=== PATIENT | female | born 1985 | race African-American/Black ===

== ENCOUNTER 2018-03-08 20:35 | Inpatient (IN) | payer MEDICARE, MEDICAID ==
[~2018-03-08] VITALS: Ht 167.6 cm; Wt 88.0 kg
[2018-03-08 20:35] VITALS: BP 63/30
[~2018-03-08 20:35] MED LIST: Calcium Gluconate 1gm/10ml vial IVP ONE; Glucagon 1mg Inj IV ONE; LAMICTAL100 MG ORAL; LATUDA20 MG PO
[2018-03-08] MEDS ORDERED: Calcium Gluconate 1gm/10ml vial ONE (20:40)
[2018-03-08] MEDS ORDERED: Glucagon 1mg Inj ONE ×3 (20:40→21:33)
[2018-03-08 20:51] LABS: HEMATOCRIT 38.9 % (37.0-47.0); HEMOGLOBIN 12.6 G/DL (12.0-16.0); MEAN CORPUSCULAR VOLUME 90 FL (80-99); PLATELET COUNT 427 K/UL (150-450); RED BLOOD COUNT 4.31 M/UL (4.20-5.40); RED CELL DISTRIBUTION WIDTH 14.7 % (11.6-14.8); WHITE BLOOD COUNT 19.2 K/UL (4.8-10.8)
--- NOTE | 2018-03-08 21:06 | Emergency Room Report ---
History of Present Illness General Chief Complaint: Overdose Source: Patient Present Illness HPI 32-year-old female presents ED for evaluation. Patient brought in by EMS for overdose. EMS states that patient overdosed on multiple pills of Tylenol, Benadryl, blood pressure medications last night. Patient was feeling dizzy and weak today. Family called 911. Patient states that she was feeling suicidal yesterday but not at this time. In triage patient is hypotensive. Denies chest pain or shortness of breath. Denies nausea or vomiting. Denies abdominal pain. There is a psychiatric history. Patient states she is compliant with her medications. Denies hearing voices. No other aggravating relieving factors. Denies any other associated symptoms Allergies: Coded Allergies: No Known Allergies (Unverified , 03/08/18) Patient History Past Medical History: none, asthma, psych hx Past Surgical History: none Pertinent Family History: none Social History: Denies: smoking, alcohol use, drug use Last Menstrual Period: 2 weeks ago Now: No Immunizations: UTD Reviewed Nursing Documentation: PMH: Agreed; PSxH: Agreed Nursing Documentation-PMH Hx Asthma: Yes History Of Psychiatric Problem: Yes - SCHIZO Review of Systems All Other Systems: negative except mentioned in HPI Physical Exam Vital Signs Date Time Temp Pulse Resp B/P (MAP) Pulse Ox O2 Delivery O2 Flow Rate FiO2 03/08/18 20:19 98.0 82 10 63/30 98 Room Air 98.1 Sp02 EP Interpretation: reviewed, normal General Appearance: alert, GCS 15, non-toxic, mild distress, lethargic Head: normocephalic, atraumatic Eyes: bilateral eye normal inspection, bilateral eye PERRL ENT: hearing grossly normal, normal pharynx, no angioedema, normal voice Neck: full range of motion, supple/symm/no masses Respiratory: chest non-tender, lungs clear, normal breath sounds, speaking full sentences Cardiovascular #1: regular rate, rhythm, no edema Cardiovascular #2: 2+ carotid (R), 2+ carotid (L), 2+ radial (R), 2+ radial (L) , 2+ dorsalis pedis (R), 2+ dorsalis pedis (L) Gastrointestinal: normal bowel sounds, non tender, soft, non-distended, no guarding, no rebound Rectal: deferred Genitourinary: normal inspection, no CVA tenderness Musculoskeletal: back normal, gait/station normal, normal range of motion, non- tender Neurologic: other - lethargic Psychiatric: depressed affect Reflexes: 3+ bicep (R), 3+ bicep (L), 3+ tricep (R), 3+ tricep (L), 3+ knee (R) , 3+ knee (L) Skin: normal color, no rash, warm/dry, well hydrated Lymphatic: no adenopathy Procedures Critical Care Time Critical Care Time i. I feel this is a highly complex case requiring extensive working including EKG/Rhythm strip, Xray/CT/US, Blood/urine lab work, repeat exams while in ED, and administration of strong opiates/narcotics for pain control, admission to hospital or close patient follow up. Total time: 30 min bedside evaluation and treatment excludes procedures (EKG). Reason for critical care: hypotensive overdose Possible complications: hypotension, hypertension, MA, shock, arrhythmias, metabolic acidosis, end organ damage, respiratory failure. Interventions: Labs, IV fluids, EKG, glucagon, calcium. Central line. Pressors Course: patient presenting s/p overdose on multiple medications. hypotensive. glucagon with temporizing improvement but despite multiple fluid boluses patient remains hypotensive. Central line placed. Pressors started Consultations: nursing staff, EMS, family Performed by: Dr Mcleod Tolerated well condition = critical j. because of unstable vital signs this patient had a condition that could potentially threaten life or limb. I feel this is a critical patient who required my full attention while patient was considered critical. Total Critical Care Time excluding procedures was greater than 35 minutes Central Line Central Line : Consent: Emergent Central Line Lumen: triple Maximal Sterile Barrier Tech: yes cap, yes mask, yes sterile gown, yes sterile gloves, yes large sterile sheet, yes hand hygiene, yes chlorhexidine prep Central Line Postion: femoral (R) Anesthesia: Lidocaine Complications: none Central Line Post Position: sutured, good blood return Attempts: One Patient Tolerated: Well Complications: None Medical Decision Making Diagnostic Impression: Primary Impression: Drug overdose Qualified Codes: T50.902A - Poisoning by unspecified drugs, medicaments and biological substances, intentional self-harm, initial encounter Additional Impression: Schizophrenia Qualified Codes: F20.9 - Schizophrenia, unspecified ER Course Hospital Course 33-year-old male presents to ED with altered mental status. Took severapills in suicide attempt Differential diagnoses include: Post ictal, Dilantin toxicity, alcohol toxicity , intracranial injury Clinical course She placed on stretcher. On court monitor. After initial history and physical ordered labs, IV fluids, EKG, glucagon, calcium Blood pressure temporarily improved with glucagon however blood pressure again drops despite aggressive IV hydration Labs reviewed- marked leukocytosis, LFTS elevated, Utox + multple substances, Tylneol level 38 Despite aggressive IV hydration patient remains hypotensive. Right femoral central line placed. Pressors started I discussed case with father. He is aware of the patient's significant psychiatric history. He is aware of patient's critical condition i. I feel this is a highly complex case requiring extensive working including EKG/Rhythm strip, Xray/CT/US, Blood/urine lab work, repeat exams while in ED, and administration of strong opiates/narcotics for pain control, admission to hospital or close patient follow up. Diagnosis - drug overdose, schizophrenia admitted to ICU in critical condition Labs Test 03/08/18 22:25 03/09/18 04:45 03/09/18 05:50 03/09/18 09:58 Urine HCG, Qualitative Negative (NEGATIVE) Sodium Level 139 MMOL/L (136-145) 136 MMOL/L (136-145) Potassium Level 3.8 MMOL/L (3.5-5.1) 4.8 MMOL/L (3.5-5.1) Chloride Level 103 MMOL/L (98-107) 102 MMOL/L (98-107) Carbon Dioxide Level 20 MMOL/L (21-32) 22 MMOL/L (21-32) Anion Gap 16 mmol/L (5-15) 12 mmol/L (5-15) Blood Urea Nitrogen 30 mg/dL (7-18) 30 mg/dL (7-18) Creatinine 4.3 MG/DL (0.55-1.30) 3.8 MG/DL (0.55-1.30) Estimat Glomerular Filtration Rate 14.7 mL/min (>60) 16.8 mL/min (>60) Glucose Level 163 MG/DL (74-106) 154 MG/DL (74-106) Calcium Level 7.2 MG/DL (8.5-10.1) 7.1 MG/DL (8.5-10.1) Total Bilirubin 0.5 MG/DL (0.2-1.0) Aspartate Amino Transf (AST/SGOT) 98 U/L (15-37) Alanine Aminotransferase (ALT/SGPT) 63 U/L (12-78) Alkaline Phosphatase 107 U/L (46-116) 123 U/L (46-116) Total Protein 6.6 G/DL (6.4-8.2) Albumin 2.8 G/DL (3.4-5.0) Globulin 3.8 g/dL Albumin/Globulin Ratio 0.7 (1.0-2.7) Salicylates Level 2.3 ug/mL (2.8-20) Urine Opiates Screen Positive (NEGATIVE) Acetaminophen Level 38 MCG/ML (10-30) 19 MCG/ML (10-30) Urine Barbiturates Screen Negative (NEGATIVE) Phencyclidine (PCP) Screen Positive (NEGATIVE) Urine Amphetamines Screen Negative (NEGATIVE) Urine Benzodiazepines Screen Negative (NEGATIVE) Urine Cocaine Screen Negative (NEGATIVE) Urine Marijuana (THC) Screen Negative (NEGATIVE) Serum Alcohol < 3 mg/dL White Blood Count 22.3 K/UL (4.8-10.8) Red Blood Count 4.61 M/UL (4.20-5.40) Hemoglobin 13.9 G/DL (12.0-16.0) Hematocrit 42.2 % (37.0-47.0) Mean Corpuscular Volume 91 FL (80-99) Mean Corpuscular Hemoglobin 30.1 PG (27.0-31.0) Mean Corpuscular Hemoglobin Concent 32.9 G/DL (32.0-36.0) Red Cell Distribution Width 14.4 % (11.6-14.8) Platelet Count 260 K/UL (150-450) Mean Platelet Volume 6.5 FL (6.5-10.1) Neutrophils (%) (Auto) % (45.0-75.0) Lymphocytes (%) (Auto) % (20.0-45.0) Monocytes (%) (Auto) % (1.0-10.0) Eosinophils (%) (Auto) % (0.0-3.0) Basophils (%) (Auto) % (0.0-2.0) Differential Total Cells Counted 100 Neutrophils % (Manual) 89 % (45-75) Lymphocytes % (Manual) 8 % (20-45) Monocytes % (Manual) 3 % (1-10) Eosinophils % (Manual) 0 % (0-3) Basophils % (Manual) 0 % (0-2) Band Neutrophils 0 % (0-8) Platelet Estimate Adequate Platelet Morphology Normal Red Blood Cell Morphology Normal Magnesium Level 1.9 MG/DL (1.8-2.4) Arterial Blood pH 7.161 (7.350-7.450) 7.089 (7.350-7.450) Arterial Blood Partial Pressure CO2 56.5 mmHg (35.0-45.0) 75.5 mmHg (35.0-45.0) Arterial Blood Partial Pressure O2 58.7 mmHg (75.0-100.0) 121.6 mmHg (75.0-100.0) Arterial Blood HCO3 19.7 mmol/L (22.0-26.0) 22.3 mmol/L (22.0-26.0) Arterial Blood Oxygen Saturation 89.9 % (92.0-98.0) 98.0 % (92.0-98.0) Arterial Blood Base Excess -9.3 -8.6 Theo Test Positive Positive Test 03/09/18 11:45 03/09/18 12:45 03/09/18 21:10 03/10/18 04:15 Urine Color Yellow Urine Appearance Clear Urine pH 5 (4.5-8.0) Urine Specific [place] 1.020 (1.005-1.035) Urine Protein 2+ (NEGATIVE) Urine Glucose (UA) Negative (NEGATIVE) Urine Ketones Negative (NEGATIVE) Urine Occult Blood 4+ (NEGATIVE) Urine Nitrite Negative (NEGATIVE) Urine Bilirubin Negative (NEGATIVE) Urine Urobilinogen Normal MG/DL (0.0-1.0) Urine Leukocyte Esterase 1+ (NEGATIVE) Urine RBC 2-4 /HPF (0 - 2) Urine WBC 2-4 /HPF (0 - 2) Urine Squamous Epithelial Cells Few /LPF (NONE/OCC) Urine Bacteria Occasional /HPF (NONE) Urine Mucus Few /LPF (NONE/OCC) Urine Yeast Occasional /HPF (NONE) Arterial Blood pH 7.150 (7.350-7.450) Arterial Blood Partial Pressure CO2 65.8 mmHg (35.0-45.0) Arterial Blood Partial Pressure O2 75.7 mmHg (75.0-100.0) Arterial Blood HCO3 22.4 mmol/L (22.0-26.0) Arterial Blood Oxygen Saturation 94.5 % (92.0-98.0) Arterial Blood Base Excess -7.3 Theo Test Positive White Blood Count 16.1 K/UL (4.8-10.8) 14.5 K/UL (4.8-10.8) Red Blood Count 3.96 M/UL (4.20-5.40) 3.91 M/UL (4.20-5.40) Hemoglobin 11.5 G/DL (12.0-16.0) 12.0 G/DL (12.0-16.0) Hematocrit 34.6 % (37.0-47.0) 34.3 % (37.0-47.0) Mean Corpuscular Volume 87 FL (80-99) 88 FL (80-99) Mean Corpuscular Hemoglobin 29.1 PG (27.0-31.0) 30.6 PG (27.0-31.0) Mean Corpuscular Hemoglobin Concent 33.3 G/DL (32.0-36.0) 34.9 G/DL (32.0-36.0) Red Cell Distribution Width 14.3 % (11.6-14.8) 14.2 % (11.6-14.8) Platelet Count 312 K/UL (150-450) 325 K/UL (150-450) Mean Platelet Volume 5.7 FL (6.5-10.1) 6.6 FL (6.5-10.1) Neutrophils (%) (Auto) % (45.0-75.0) % (45.0-75.0) Lymphocytes (%) (Auto) % (20.0-45.0) % (20.0-45.0) Monocytes (%) (Auto) % (1.0-10.0) % (1.0-10.0) Eosinophils (%) (Auto) % (0.0-3.0) % (0.0-3.0) Basophils (%) (Auto) % (0.0-2.0) % (0.0-2.0) Differential Total Cells Counted 100 100 Neutrophils % (Manual) 89 % (45-75) 86 % (45-75) Lymphocytes % (Manual) 8 % (20-45) 12 % (20-45) Monocytes % (Manual) 3 % (1-10) 2 % (1-10) Eosinophils % (Manual) 0 % (0-3) 0 % (0-3) Basophils % (Manual) 0 % (0-2) 0 % (0-2) Band Neutrophils 0 % (0-8) 0 % (0-8) Platelet Estimate Adequate Adequate Platelet Morphology Normal Normal Red Blood Cell Morphology Normal Prothrombin Time 16.4 SEC (9.30-11.50) Prothromb Time International Ratio 1.6 (0.9-1.1) Sodium Level 138 MMOL/L (136-145) 141 MMOL/L (136-145) Potassium Level 3.9 MMOL/L (3.5-5.1) 3.8 MMOL/L (3.5-5.1) Chloride Level 109 MMOL/L (98-107) 110 MMOL/L (98-107) Carbon Dioxide Level 21 MMOL/L (21-32) 23 MMOL/L (21-32) Anion Gap 8 mmol/L (5-15) 8 mmol/L (5-15) Blood Urea Nitrogen 25 mg/dL (7-18) 20 mg/dL (7-18) Creatinine 1.8 MG/DL (0.55-1.30) 1.3 MG/DL (0.55-1.30) Estimat Glomerular Filtration Rate 40.0 mL/min (>60) 58.3 mL/min (>60) Glucose Level 136 MG/DL (74-106) 134 MG/DL (74-106) Lactic Acid Level 1.50 mmol/L (0.66-2.22) Calcium Level 7.6 MG/DL (8.5-10.1) 7.9 MG/DL (8.5-10.1) Total Bilirubin 0.4 MG/DL (0.2-1.0) Aspartate Amino Transf (AST/SGOT) 1264 U/L (15-37) Alanine Aminotransferase (ALT/SGPT) 1141 U/L (12-78) Alkaline Phosphatase 97 U/L (46-116) Total Creatine Kinase 2558 U/L (26-308) Creatine Kinase MB 20.9 NG/ML (0.0-3.6) Creatine Kinase MB Relative Index 0.8 Troponin I 0.456 ng/mL (0.000-0.056) Total Protein 6.1 G/DL (6.4-8.2) Albumin 2.6 G/DL (3.4-5.0) Globulin 3.5 g/dL Albumin/Globulin Ratio 0.7 (1.0-2.7) Human Chorionic Gonadotropin, Quant < 1 mIU/mL (1-6) Anisocytosis 1+ Test 03/10/18 08:30 03/10/18 09:35 03/11/18 04:15 Arterial Blood pH 7.353 (7.350-7.450) Arterial Blood Partial Pressure CO2 41.2 mmHg (35.0-45.0) Arterial Blood Partial Pressure O2 97.4 mmHg (75.0-100.0) Arterial Blood HCO3 22.4 mmol/L (22.0-26.0) Arterial Blood Oxygen Saturation 96.9 % (92.0-98.0) Arterial Blood Base Excess -3.0 Theo Test Positive Troponin I 0.349 ng/mL (0.000-0.056) HIV (1&2) Antibody Rapid Negative (NEGATIVE) EKG Diagnostic Results Rate: normal Rhythm: NSR ST Segments: no acute changes ASA given to the pt in ED: No Rhythm Strip Diag. Results EP Interpretation: yes Rhythm: NSR, no PVC's, no ectopy Last Vital Signs Date Time Temp Pulse Resp B/P (MAP) Pulse Ox O2 Delivery O2 Flow Rate FiO2 03/08/18 20:19 98.0 82 10 63/30 98 Room Air 98.1 Status: improved Disposition: ADMITTED INPATIENT Condition: Critical Des Mcleod MD Mar 08, 2018 21:06
[2018-03-08] MEDS ORDERED: Glucagon 1mg Inj IV ONE (21:30)
[2018-03-08 21:35] VITALS: BP 91/47
[2018-03-08] MEDS ORDERED: PANTOPRAZOLE SO40 MG ORAL (22:18)
[2018-03-08] MEDS ORDERED: METFORMIN HCL500 M1 ORAL (22:19)
[2018-03-08] MEDS ORDERED: ACETAMINOPHEN-1 EAC1 ORAL (22:19)
[2018-03-08] MEDS ORDERED: BANOPHEN25 MG PO (22:20)
[2018-03-08] MEDS ORDERED: VENTOLIN HFA18 GM INH (22:20)
[2018-03-08] MEDS ORDERED: HAIR, SKIN & N1 EACH PO (22:21)
[2018-03-08] MEDS ORDERED: TURMERIC500 MG PO (22:22)
[2018-03-08 22:35] VITALS: BP 68/38
[2018-03-08 23:01] LABS: ANION GAP 16 mmol/L (5-15); BLOOD UREA NITROGEN 30 mg/dL (7-18); CALCIUM 7.2 MG/DL (8.5-10.1); CARBON DIOXIDE 20 MMOL/L (21-32); CHLORIDE 103 MMOL/L (98-107); CREATININE 4.3 MG/DL (0.55-1.30); POTASSIUM 3.8 MMOL/L (3.5-5.1); SODIUM 139 MMOL/L (136-145)
[2018-03-08 23:03] VITALS: BP 63/29
[2018-03-08] MEDS: DOPamine 400mg/250ml 250 ML IV SCH (23:03)
[2018-03-08 23:06] LABS: ALANINE AMINOTRANSFERASE 63 U/L (12-78); ALBUMIN 2.8 G/DL (3.4-5.0); ALBUMIN/GLOBULIN RATIO 0.7 (1.0-2.7); ALKALINE PHOSPHATASE 107 U/L (46-116); ASPARTATE AMINO TRANSFERASE 98 U/L (15-37); BILIRUBIN,TOTAL 0.5 MG/DL (0.2-1.0)
[2018-03-09] VITALS (22 sets, daily range): BP systolic 70–117; BP diastolic 30–65
[2018-03-09 05:15] LABS: HEMATOCRIT 42.2 % (37.0-47.0); HEMOGLOBIN 13.9 G/DL (12.0-16.0); MEAN CORPUSCULAR VOLUME 91 FL (80-99); PLATELET COUNT 260 K/UL (150-450); RED BLOOD COUNT 4.61 M/UL (4.20-5.40); RED CELL DISTRIBUTION WIDTH 14.4 % (11.6-14.8)
[2018-03-09 05:21] LABS: ALKALINE PHOSPHATASE 123 U/L (46-116); ANION GAP 12 mmol/L (5-15); BLOOD UREA NITROGEN 30 mg/dL (7-18); CALCIUM 7.1 MG/DL (8.5-10.1); CARBON DIOXIDE 22 MMOL/L (21-32); CHLORIDE 102 MMOL/L (98-107); CREATININE 3.8 MG/DL (0.55-1.30); POTASSIUM 4.8 MMOL/L (3.5-5.1); SODIUM 136 MMOL/L (136-145)
[2018-03-09 05:26] LABS: WHITE BLOOD COUNT 22.3 K/UL (4.8-10.8)
[2018-03-09] MEDS ORDERED: LORazepam 0.5mg tab ORAL PRN (08:45)
[2018-03-09] MEDS ORDERED: Heparin 2000 units/Ns 1000ml INJ PRN (08:45)
[2018-03-09] MEDS ORDERED: Lidocaine 1% Plain 30 ml INJ PRN (08:45)
[2018-03-09] MEDS ORDERED: LORazepam Inj 2mg/ml 1ml ONE (08:50)
--- NOTE | 2018-03-09 08:52 | Pulmonolgy Critical Care Note ---
Critical Care - Asmt/Plan Problems: (1) Altered mental state (2) Shock (3) LYNNE (acute kidney injury) (4) PCP intoxication (5) Opiate misuse (6) Tylenol overdose (7) Drug overdose, multiple drugs Respiratory: adjust FIO2, CXR, ABG Cardiac: continue pressors - Peripheral DA until PICC placed then NE via PICC to keep MAP > 60, continue to monitor HR/BP, other - IVF, F/U TTE Renal: F/U I&O, keep IV fluid, check electrolytes Infectious Disease: check cultures Gastrointestinal: other - aspiration precautions once less agitated and more alert. Trend LFT's, F/U INR, decision made by ERMD not to start NAC, tylenol level now 19 Endocrine: monitor blood sugar, check TSH Hematologic: monitor H/H Neurologic: PRN Ativan, keep patient comfortable, other - Monitor MS. Lopez christopherjennifer, sitter once leaves ICU Prophylaxis: Protonix, Heparin Disposition: keep in ICU Time Spent (Minutes): 70 Notes Reviewed: other - ERMD Discussed with: nurses Critical Care - Objective Last 24 Hour Vital Signs Date Time Temp Pulse Resp B/P (MAP) Pulse Ox O2 Delivery O2 Flow Rate FiO2 03/09/18 07:05 96 18 100/48 98 Room Air 03/09/18 06:03 97.8 75 18 88/50 99 Room Air 97.8 03/09/18 04:03 98.1 93 18 103/56 99 Room Air 98.1 03/09/18 02:03 98.1 69 18 93/50 100 Room Air 98.1 03/09/18 01:56 93/51 03/09/18 01:41 82/42 03/09/18 01:26 78/40 03/09/18 01:11 78/33 03/09/18 01:03 97.9 65 18 80/34 100 Room Air 97.9 03/09/18 00:56 73/35 03/09/18 00:41 67/38 03/09/18 00:26 69/32 03/09/18 00:18 69/32 03/09/18 00:11 69/32 03/09/18 00:03 98.1 69 20 70/30 100 Room Air 98.1 03/09/18 00:03 70/30 03/08/18 23:48 67/38 03/08/18 23:33 69/31 03/08/18 23:18 64/32 03/08/18 23:03 98.0 68 10 63/29 100 Room Air 98.0 03/08/18 23:03 63/29 03/08/18 22:45 95/61 03/08/18 22:35 97.8 71 13 68/38 100 Room Air 97.8 03/08/18 21:35 98.1 75 12 91/47 98 Room Air 98.1 03/08/18 20:35 82 10 Room Air 03/08/18 20:35 98.1 82 10 63/30 98 Room Air 98.1 03/08/18 20:19 98.0 82 10 63/30 98 Room Air 98.1 Status: awake, other - agitated Condition: critical HEENT: atraumatic, normocephalic Lungs: clear Heart: HR/BP unstable Abdomen: soft, non-tender, active bowel sounds Extremities: no C/C/E Accucheck: 134 Critical Care - Subjective ROS Limited/Unobtainable: Yes ICU Day: 1 Intubation Day: 0 Interval Events: 32 F unknown hx BIB EMS with AMS and OD with Tylenol, Benadryl, Atenolol, Losartan Hypotensive in ED, R fem CVC placed and patient started on NE, pt later pulled line out Initial acetominophen level was 38, F/U 19, decision made by ERMD not to start NAC BP better but pt altered, transferred to ICU UTOX + for PCP and opiate 7.16/56/58/19/89, + LYNNE somewhat improved with IVF She is extremely agitated and wants to leave AMA She denies any other complaints, no F/C/CP/SOB/N/V/D/C/abdominal pain or urinary complaints Condition: critical IV Access: peripheral EKG Rhythm: Sinus Rhythm Sputum Amount: None I&O: Intake and Output 03/08/18 03/09/18 19:00 07:00 Intake Total 3000 ml Output Total 350 ml Balance 2650 ml Intake IV Total 3000 ml Output Urine Total 350 ml # Voids 1 Labs: Laboratory Tests Test 03/08/18 20:20 03/08/18 22:25 03/09/18 04:45 03/09/18 05:50 White Blood Count 19.2 K/UL (4.8-10.8) H 22.3 K/UL (4.8-10.8) *H Red Blood Count 4.31 M/UL (4.20-5.40) 4.61 M/UL (4.20-5.40) Hemoglobin 12.6 G/DL (12.0-16.0) 13.9 G/DL (12.0-16.0) Hematocrit 38.9 % (37.0-47.0) 42.2 % (37.0-47.0) Mean Corpuscular Volume 90 FL (80-99) 91 FL (80-99) Mean Corpuscular Hemoglobin 29.2 PG (27.0-31.0) 30.1 PG (27.0-31.0) Mean Corpuscular Hemoglobin Concent 32.4 G/DL (32.0-36.0) 32.9 G/DL (32.0-36.0) Red Cell Distribution Width 14.7 % (11.6-14.8) 14.4 % (11.6-14.8) Platelet Count 427 K/UL (150-450) 260 K/UL (150-450) Mean Platelet Volume 5.7 FL (6.5-10.1) L 6.5 FL (6.5-10.1) Neutrophils (%) (Auto) % (45.0-75.0) % (45.0-75.0) Lymphocytes (%) (Auto) % (20.0-45.0) % (20.0-45.0) Monocytes (%) (Auto) % (1.0-10.0) % (1.0-10.0) Eosinophils (%) (Auto) % (0.0-3.0) % (0.0-3.0) Basophils (%) (Auto) % (0.0-2.0) % (0.0-2.0) Differential Total Cells Counted 100 Neutrophils % (Manual) 80 % (45-75) H Pending Lymphocytes % (Manual) 20 % (20-45) Pending Monocytes % (Manual) 0 % (1-10) L Eosinophils % (Manual) 0 % (0-3) Basophils % (Manual) 0 % (0-2) Band Neutrophils 0 % (0-8) Platelet Estimate Increased H Pending Platelet Morphology Normal Pending Anisocytosis 1+ Urine HCG, Qualitative Negative (NEGATIVE) Sodium Level 139 MMOL/L (136-145) 136 MMOL/L (136-145) Potassium Level 3.8 MMOL/L (3.5-5.1) 4.8 MMOL/L (3.5-5.1) Chloride Level 103 MMOL/L (98-107) 102 MMOL/L (98-107) Carbon Dioxide Level 20 MMOL/L (21-32) L 22 MMOL/L (21-32) Anion Gap 16 mmol/L (5-15) H 12 mmol/L (5-15) Blood Urea Nitrogen 30 mg/dL (7-18) H 30 mg/dL (7-18) H Creatinine 4.3 MG/DL (0.55-1.30) H 3.8 MG/DL (0.55-1.30) H Estimat Glomerular Filtration Rate 14.7 mL/min (>60) 16.8 mL/min (>60) Glucose Level 163 MG/DL (74-106) H 154 MG/DL (74-106) H Calcium Level 7.2 MG/DL (8.5-10.1) L 7.1 MG/DL (8.5-10.1) L Total Bilirubin 0.5 MG/DL (0.2-1.0) Aspartate Amino Transf (AST/SGOT) 98 U/L (15-37) H Alanine Aminotransferase (ALT/SGPT) 63 U/L (12-78) Alkaline Phosphatase 107 U/L (46-116) 123 U/L (46-116) H Total Protein 6.6 G/DL (6.4-8.2) Albumin 2.8 G/DL (3.4-5.0) L Globulin 3.8 g/dL Albumin/Globulin Ratio 0.7 (1.0-2.7) L Salicylates Level 2.3 ug/mL (2.8-20) L Urine Opiates Screen Positive (NEGATIVE) H Acetaminophen Level 38 MCG/ML (10-30) H 19 MCG/ML (10-30) Urine Barbiturates Screen Negative (NEGATIVE) Phencyclidine (PCP) Screen Positive (NEGATIVE) H Urine Amphetamines Screen Negative (NEGATIVE) Urine Benzodiazepines Screen Negative (NEGATIVE) Urine Cocaine Screen Negative (NEGATIVE) Urine Marijuana (THC) Screen Negative (NEGATIVE) Serum Alcohol < 3 mg/dL Magnesium Level 1.9 MG/DL (1.8-2.4) Arterial Blood pH 7.161 (7.350-7.450) Arterial Blood Partial Pressure CO2 56.5 mmHg (35.0-45.0) *H Arterial Blood Partial Pressure O2 58.7 mmHg (75.0-100.0) L Arterial Blood HCO3 19.7 mmol/L (22.0-26.0) L Arterial Blood Oxygen Saturation 89.9 % (92.0-98.0) L Arterial Blood Base Excess -9.3 Theo Test Positive NESSA LEVINE M.D. Mar 09, 2018 08:52
[2018-03-09] MEDS ORDERED: Pantoprazole Inj IV SCH (09:00)
--- NOTE | 2018-03-09 09:57 | History & Physical ---
History and Physical History & Physicial HP dictated # [id number] TERRI PEREZ Mar 09, 2018 09:57
[2018-03-09 11:57] LABS: APPEARANCE,URINE CLEAR; BILIRUBIN, URINE NEGATIVE (NEGATIVE); GLUCOSE, URINE (UA) NEGATIVE (NEGATIVE); KETONES,URINE NEGATIVE (NEGATIVE); LEUKOCYTE ESTERASE ,URINE 1+ (NEGATIVE); NITRITE,URINE NEGATIVE (NEGATIVE); PH,URINE 5 (4.5-8.0); PROTEIN,URINE 2+ (NEGATIVE); UROBILINOGEN,URINE NORMAL MG/DL (0.0-1.0)
[2018-03-09 12:08] LABS: COLOR,URINE YELLOW
[2018-03-09] MEDS: Heparin 5000 units/ml inj SUBQ SCH ×2 (12:33→21:06)
[2018-03-09] MEDS: Pantoprazole Inj IVP SCH (12:33)
--- NOTE | 2018-03-09 13:32 | Emergency Room Report ---
History of Present Illness General Chief Complaint: Overdose Source: Patient Present Illness Allergies: Coded Allergies: No Known Allergies (Unverified , 03/08/18) Patient History Last Menstrual Period: 2 weeks ago Now: No Nursing Documentation-[facility] Hx Asthma: Yes History Of Psychiatric Problem: Yes - SCHIZO Physical Exam Vital Signs Date Time Temp Pulse Resp B/P (MAP) Pulse Ox O2 Delivery O2 Flow Rate FiO2 03/08/18 20:19 98.0 82 10 63/30 98 Room Air 98.1 03/09/18 09:00 2.0 03/09/18 11:00 24 Procedures Intubation Intubation : Consent: Emergent Intubation Method: orotracheal Tube Size (cm): 7.5 Medications: Succinylcholine Breath Sounds after Intubation: equal Intubation Complications: no complications Attempts: One Patient Tolerated: Well Complications: None Progress Upon initial evaluation the vocal cords are visualized however, there is a anterior positioning and fairly distant from the oral airway to the vocal cords therefore initially, bougie tube is used and Seldinger maneuver with ET tube feeding over the top was utilized Medical Decision Making ER Course On initial arrival to the floor, patient's ABG remains acidotic I was requested by wheelchair rental clerk for airway intubation Patient's blood pressure is labile and therefore succinylcholine was used Referred to the note for the specifics care handed back to intensive care Chest X-Ray Diagnostic Results Chest X-Ray Diagnostic Results : Chest X-Ray Ordered: Yes # of Views/Limited/Complete: 1 View Indication: Other - Intubation EP Interpretation: Yes Interpretation: no consolidation, no effusion, no pneumothorax, other - ET tube appropriate Impression: Other - ET tube appropriate Electronically Signed by: Shahida Santana DO Last Vital Signs Date Time Temp Pulse Resp B/P (MAP) Pulse Ox O2 Delivery O2 Flow Rate FiO2 03/09/18 13:00 84 24 107/55 100 Bi-pap 24 03/09/18 10:00 2.0 03/09/18 09:00 97.8 97.8 Disposition: ADMITTED INPATIENT Condition: Serious Referrals: NOT CHOSEN IPA/,REFERRING (PCP) Shahida Santana DO Mar 09, 2018 13:32
[2018-03-09] MEDS: cefTRIAXone 1 GM in D5W 55 ML IVPB SCH (13:58)
[2018-03-09] MEDS: LORazepam Inj 2mg/ml 1ml IV PRN ×2 (14:01→19:59)
[2018-03-09] MEDS: D5NS 1,000 ML IV SCH ×2 (15:17→21:37)
[2018-03-09] MEDS ORDERED: Succinylcholine 20mg/ml 10ml vial ONE (16:04)
--- NOTE | 2018-03-09 19:15 | History and Physical Report ---
DATE OF ADMISSION: 03/08/2018 CHIEF COMPLAINT: The patient was brought in by paramedics for overdose. HISTORY OF PRESENT ILLNESS: This is a 32-year-old, female, who is unable to provide any history. The patient was seen in the ICU after she was brought in by paramedics apparently with overdose of Tylenol, Benadryl and blood pressure medications. The patient was feeling dizzy and weak and family called 911. The patient was found to be hypotensive in the emergency room with the blood pressure systolic in the 60s and she had a central line and was started on pressors and IV fluid was given and the patient was admitted to the intensive care unit. PAST MEDICAL HISTORY: Apparently, the patient has history of psychiatric disease and history of asthma. MEDICATIONS: Reviewed in the EMR. SOCIAL HISTORY: No history of smoking or alcohol abuse. ALLERGIES: No known drug allergies. REVIEW OF SYSTEMS: Unobtainable. PHYSICAL EXAMINATION: GENERAL: The patient is a 32-year-old female, in no acute distress. VITAL SIGNS: Blood pressure is 100/48, pulse 94, respiratory 18, and temperature 97.8 degrees. HEENT: [place] conjunctivae. Anicteric sclerae. NECK: Supple. LUNGS: Clear to auscultation. HEART: S1 and S2 without murmurs or rubs. ABDOMEN: Soft and nontender. EXTREMITIES: No cyanosis or edema. LABORATORY AND DIAGNOSTIC DATA: CBC shows a WBC of 22.3, hematocrit 42.2, hemoglobin 13.9, and platelet is 260,000. Chemistry panel shows serum sodium 136, potassium 4.8, chloride 102, CO2 of 22, BUN is 30, creatinine 3.8, and blood sugar is 154. Calcium 7.1. There is no UA. ASSESSMENT: This is a 32-year-old, female, who was admitted for an overdose of different medications. She was hypotensive in the emergency room likely as a result of taking the blood pressure medications. She has acute renal failure. Serum creatinine was 4.3, on admission and has improved to 3.8 today. There is a very likelihood that there is some acute tubular necrosis as a result of her low blood pressure. Other possibility such as prerenal azotemia exist. The patient had also an ABG as of this morning. She has some respiratory acidosis with some metabolic acidosis as well, pH was 7.16, pCO2 of 56.5, and pO2 of 59. So far, the patient has not required any intubation. PLAN: The patient will be on IV fluids and pressors as needed. She will need a PICC line since the central line does not work at this time. Her laboratories will be followed closely. A Rosenberg catheter will be inserted to make sure the patient has adequate urine. Hopefully, her kidney recovers without any dialysis. Psychiatry consultation will be obtained. The patient was already seen by Dr. Srivastava in Pulmonary consultation. Francis Asher M.D. DR: YOHANNES JOB#: [id number] CC:
[2018-03-09] MEDS: Dyna-Hex 2% Top Sol 2oz TOPIC SCH (19:58)
--- NOTE | 2018-03-09 20:45 | Consultation ---
DATE OF CONSULTATION: 03/09/2018 INFECTIOUS DISEASES CONSULTATION CONSULTING PHYSICIAN: Audie Asher M.D. PRIMARY ATTENDING PHYSICIAN: Francis Asher M.D. REASON FOR CONSULT: Leukocytosis. HISTORY OF PRESENT ILLNESS: The patient is a 32-year-old female admitted last night because of overdose with Tylenol, Benadryl, blood pressure medication, also found that she had PCP intoxication and opioid misuse, had altered mental status, hypotension. Currently, is in ICU, sedated, noncommunicative. PAST MEDICAL HISTORY: History of psychiatric problem, according to the ER doctor schizophrenia. ALLERGIES: No known drug allergies. MEDICATIONS: Getting chlorhexidine, sodium chloride, heparin, lorazepam, Protonix, and Tylenol. No other history obtainable. PHYSICAL EXAMINATION: VITAL SIGNS: Temperature 97.4 degrees, pulse 94, and blood pressure 100/48. GENERAL APPEARANCE: No acute distress, lethargic. HEAD AND NECK: [place] conjunctiva. HEART: Regular. LUNGS: Clear. ABDOMEN: Soft, flat, and nontender. EXTREMITY: She has no edema. LABORATORY AND DIAGNOSTIC DATA: WBC 22.3 going up from 19.2, hemoglobin 13.9, hematocrit 42.9 and platelets 260. Sodium 136, potassium 4.8, chloride 102, bicarbonate 22, BUN 30, creatinine 3.8, and glucose 154. Toxicology test showed high dose of acetaminophen, opiates and phencyclidine. UA test was negative. IMPRESSION: 1. Systemic inflammatory response /sepsis and drug intoxication. 2. The patient has hypotension. 3. Acute renal failure. 4. Altered mental status. 5. Leukocytosis. RECOMMENDATION: We will follow up the cultures that was ordered by primary doctor. We will follow up the chest x-ray. We will start empirically on Rocephin because of concern of aspiration pneumonia. At the end of my exam, I thank Dr. Asher, for involving me in the care of this patient. Audie Asher M.D. DR: TAMIKO JOB#: [id number] CC: FILOMENA
[2018-03-09 21:38] LABS: HEMATOCRIT 34.6 % (37.0-47.0); HEMOGLOBIN 11.5 G/DL (12.0-16.0); MEAN CORPUSCULAR VOLUME 87 FL (80-99); PLATELET COUNT 312 K/UL (150-450); RED BLOOD COUNT 3.96 M/UL (4.20-5.40); RED CELL DISTRIBUTION WIDTH 14.3 % (11.6-14.8); WHITE BLOOD COUNT 16.1 K/UL (4.8-10.8)
[2018-03-09 21:44] LABS: INR 1.6 (0.9-1.1)
[2018-03-09 21:54] LABS: ANION GAP 8 mmol/L (5-15); BLOOD UREA NITROGEN 25 mg/dL (7-18); CALCIUM 7.6 MG/DL (8.5-10.1); CARBON DIOXIDE 21 MMOL/L (21-32); CHLORIDE 109 MMOL/L (98-107); CREATININE 1.8 MG/DL (0.55-1.30); POTASSIUM 3.9 MMOL/L (3.5-5.1); SODIUM 138 MMOL/L (136-145)
[2018-03-09 22:03] LABS: ALANINE AMINOTRANSFERASE 1141 U/L (12-78); ALBUMIN 2.6 G/DL (3.4-5.0); ALBUMIN/GLOBULIN RATIO 0.7 (1.0-2.7); ALKALINE PHOSPHATASE 97 U/L (46-116); ASPARTATE AMINO TRANSFERASE 1264 U/L (15-37); BILIRUBIN,TOTAL 0.4 MG/DL (0.2-1.0)
[2018-03-09 22:10] LABS: CKMB 20.9 NG/ML (0.0-3.6); CREATINE KINASE 2558 U/L (26-308)
[2018-03-09] MEDS: DOPamine 400mg/250ml 250 ML IV SCH (22:30)
[2018-03-10] VITALS (24 sets, daily range): BP systolic 114–167; BP diastolic 55–89
[2018-03-10] MEDS: LORazepam Inj 2mg/ml 1ml IV PRN (02:33)
[2018-03-10] MEDS: D5NS 1,000 ML IV SCH ×3 (04:34→18:30)
[2018-03-10 04:37] LABS: HEMATOCRIT 34.3 % (37.0-47.0); MEAN CORPUSCULAR VOLUME 88 FL (80-99); PLATELET COUNT 325 K/UL (150-450); RED BLOOD COUNT 3.91 M/UL (4.20-5.40); RED CELL DISTRIBUTION WIDTH 14.2 % (11.6-14.8); WHITE BLOOD COUNT 14.5 K/UL (4.8-10.8)
[2018-03-10 05:04] LABS: ANION GAP 8 mmol/L (5-15); BLOOD UREA NITROGEN 20 mg/dL (7-18); CALCIUM 7.9 MG/DL (8.5-10.1); CARBON DIOXIDE 23 MMOL/L (21-32); CHLORIDE 110 MMOL/L (98-107); CREATININE 1.3 MG/DL (0.55-1.30); POTASSIUM 3.8 MMOL/L (3.5-5.1); SODIUM 141 MMOL/L (136-145)
--- NOTE | 2018-03-10 08:17 | Pulmonolgy Critical Care Note ---
Critical Care - Asmt/Plan Problems: (1) Altered mental state (2) Shock (3) LYNNE (acute kidney injury) (4) PCP intoxication (5) Opiate misuse (6) Tylenol overdose (7) Drug overdose, multiple drugs Respiratory: ABG, other - Possible extubation later today Cardiac: continue to monitor HR/BP Renal: F/U I&O, keep IV fluid, check electrolytes Infectious Disease: continue antibiotics - per ID, likely can de-escalate soon Gastrointestinal: other - If not extubated later will D/C Abx later Endocrine: monitor blood sugar Hematologic: monitor H/H Neurologic: PRN Ativan, keep patient comfortable Prophylaxis: Protonix, Heparin - SQ Disposition: keep in ICU Notes Reviewed: [place]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, 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, ID Discussed with: nurses, consultants Critical Care - Objective Last 24 Hour Vital Signs Date Time Temp Pulse Resp B/P (MAP) Pulse Ox O2 Delivery O2 Flow Rate FiO2 03/10/18 07:29 91 16 30 03/10/18 07:00 99.7 91 16 147/76 97 Mechanical Ventilator 30 99.7 03/10/18 06:00 84 16 130/72 97 Mechanical Ventilator 30 03/10/18 05:00 88 16 135/72 97 Mechanical Ventilator 30 03/10/18 04:58 94 16 30 03/10/18 04:00 99.0 91 17 150/78 97 Mechanical Ventilator 30 99.0 03/10/18 04:00 30 03/10/18 03:32 84 16 30 03/10/18 03:00 91 17 146/74 98 Mechanical Ventilator 30 03/10/18 02:00 90 16 114/55 98 Mechanical Ventilator 30 03/10/18 01:26 86 16 30 03/10/18 01:15 92 03/10/18 01:00 89 16 115/59 98 Mechanical Ventilator 30 03/10/18 00:00 30 03/10/18 00:00 90 03/10/18 00:00 98.8 94 16 133/63 97 Mechanical Ventilator 30 98.8 03/09/18 23:21 93 16 30 03/09/18 23:00 93 16 107/55 99 Mechanical Ventilator 30 03/09/18 22:45 107/55 03/09/18 22:30 107/55 03/09/18 22:00 89 16 107/55 99 Mechanical Ventilator 30 03/09/18 21:25 90 18 30 4/29/18 21:00 89 16 112/65 99 Mechanical Ventilator 30 03/09/18 20:00 99.0 89 16 112/65 99 Mechanical Ventilator 30 99.0 03/09/18 20:00 90 03/09/18 20:00 30 03/09/18 19:24 86 16 30 03/09/18 19:00 89 16 103/53 99 Mechanical Ventilator 30 03/09/18 18:00 88 16 102/56 99 Mechanical Ventilator 30 03/09/18 17:00 91 18 93/49 100 Mechanical Ventilator 30 03/09/18 16:55 89 19 30 03/09/18 16:00 30 03/09/18 16:00 97.8 91 17 90/45 100 Mechanical Ventilator 30 97.8 03/09/18 16:00 90 03/09/18 15:00 87 33 101/49 100 Mechanical Ventilator 30 03/09/18 14:31 91 18 30 03/09/18 14:00 85 24 117/52 100 Mechanical Ventilator 30 03/09/18 13:15 84 18 30 03/09/18 13:15 30 03/09/18 13:00 84 24 107/55 100 Bi-pap 24 03/09/18 12:00 24 03/09/18 12:00 74 24 99/48 100 Bi-pap 24 03/09/18 12:00 76 03/09/18 11:32 100 Bi-pap 24 03/09/18 11:31 76 24 Bi-pap 24 03/09/18 11:30 24 03/09/18 11:27 76 24 100 Facial 24 03/09/18 11:00 83 31 92/44 100 Bi-pap 24 03/09/18 10:00 86 24 102/44 100 Nasal Cannula 2.0 03/09/18 09:00 97.8 85 26 70/36 100 Nasal Cannula 2.0 97.8 03/09/18 08:20 97.8 94 18 100/48 98 Room Air 03/09/18 08:15 94 18 94/50 98 Room Air Status: awake Condition: improving HEENT: atraumatic, normocephalic, other - ETT Lungs: clear Heart: HR/BP stable Abdomen: soft, non-tender, active bowel sounds Extremities: no C/C/E Micro: Microbiology Date/Time Source Procedure Growth Status 03/09/18 11:45 Urine,Clean Catch Urine Culture - Preliminary Resulted Accucheck: 100 Critical Care - Subjective ROS Limited/Unobtainable: Yes ICU Day: 2 Intubation Day: 2 Interval Events: AFVSS, stable on vent FiO2 30% Awake and alert off sedation No secretions Condition: improving IV Access: peripheral EKG Rhythm: Sinus Rhythm FI02: 30 Vent Support Breath Rate: 16 Vent Support Mode: AC Vent Tidal Volume: 600 Sputum Amount: Moderate PEEP: 5.0 PIP: 30 I&O: Intake and Output 03/09/18 03/10/18 19:00 07:00 Intake Total 2569 ml 1800 ml Output Total 1590 ml 490 ml Balance 979 ml 1310 ml Intake IV Total 2569 ml 1800 ml Output Urine Total 1590 ml 490 ml ET-Tube: 7.5 ET Position: 25 Labs: Laboratory Tests Test 03/09/18 09:58 03/09/18 11:45 03/09/18 12:45 03/09/18 21:10 Arterial Blood pH 7.089 (7.350-7.450) 7.150 (7.350-7.450) Arterial Blood Partial Pressure CO2 75.5 mmHg (35.0-45.0) *H 65.8 mmHg (35.0-45.0) *H Arterial Blood Partial Pressure O2 121.6 mmHg (75.0-100.0) H 75.7 mmHg (75.0-100.0) Arterial Blood HCO3 22.3 mmol/L (22.0-26.0) 22.4 mmol/L (22.0-26.0) Arterial Blood Oxygen Saturation 98.0 % (92.0-98.0) 94.5 % (92.0-98.0) Arterial Blood Base Excess -8.6 -7.3 Theo Test Positive Positive Urine Color Yellow Urine Appearance Clear Urine pH 5 (4.5-8.0) Urine Specific [place] 1.020 (1.005-1.035) Urine Protein 2+ (NEGATIVE) H Urine Glucose (UA) Negative (NEGATIVE) Urine Ketones Negative (NEGATIVE) Urine Occult Blood 4+ (NEGATIVE) H Urine Nitrite Negative (NEGATIVE) Urine Bilirubin Negative (NEGATIVE) Urine Urobilinogen Normal MG/DL (0.0-1.0) Urine Leukocyte Esterase 1+ (NEGATIVE) H Urine RBC 2-4 /HPF (0 - 2) H Urine WBC 2-4 /HPF (0 - 2) Urine Squamous Epithelial Cells Few /LPF (NONE/OCC) Urine Bacteria Occasional /HPF (NONE) Urine Mucus Few /LPF (NONE/OCC) H Urine Yeast Occasional /HPF (NONE) H White Blood Count 16.1 K/UL (4.8-10.8) H Red Blood Count 3.96 M/UL (4.20-5.40) L Hemoglobin 11.5 G/DL (12.0-16.0) L Hematocrit 34.6 % (37.0-47.0) L Mean Corpuscular Volume 87 FL (80-99) Mean Corpuscular Hemoglobin 29.1 PG (27.0-31.0) Mean Corpuscular Hemoglobin Concent 33.3 G/DL (32.0-36.0) Red Cell Distribution Width 14.3 % (11.6-14.8) Platelet Count 312 K/UL (150-450) Mean Platelet Volume 5.7 FL (6.5-10.1) L Neutrophils (%) (Auto) % (45.0-75.0) Lymphocytes (%) (Auto) % (20.0-45.0) Monocytes (%) (Auto) % (1.0-10.0) Eosinophils (%) (Auto) % (0.0-3.0) Basophils (%) (Auto) % (0.0-2.0) Differential Total Cells Counted 100 Neutrophils % (Manual) 89 % (45-75) H Lymphocytes % (Manual) 8 % (20-45) L Monocytes % (Manual) 3 % (1-10) Eosinophils % (Manual) 0 % (0-3) Basophils % (Manual) 0 % (0-2) Band Neutrophils 0 % (0-8) Platelet Estimate Adequate Platelet Morphology Normal Red Blood Cell Morphology Normal Prothrombin Time 16.4 SEC (9.30-11.50) H Prothromb Time International Ratio 1.6 (0.9-1.1) H Sodium Level 138 MMOL/L (136-145) Potassium Level 3.9 MMOL/L (3.5-5.1) Chloride Level 109 MMOL/L (98-107) H Carbon Dioxide Level 21 MMOL/L (21-32) Anion Gap 8 mmol/L (5-15) Blood Urea Nitrogen 25 mg/dL (7-18) H Creatinine 1.8 MG/DL (0.55-1.30) #H Estimat Glomerular Filtration Rate 40.0 mL/min (>60) Glucose Level 136 MG/DL (74-106) H Lactic Acid Level 1.50 mmol/L (0.66-2.22) Calcium Level 7.6 MG/DL (8.5-10.1) L Total Bilirubin 0.4 MG/DL (0.2-1.0) Aspartate Amino Transf (AST/SGOT) 1264 U/L (15-37) H Alanine Aminotransferase (ALT/SGPT) 1141 U/L (12-78) H Alkaline Phosphatase 97 U/L (46-116) Total Creatine Kinase 2558 U/L (26-308) H Creatine Kinase MB 20.9 NG/ML (0.0-3.6) H Creatine Kinase MB Relative Index 0.8 Troponin I 0.456 ng/mL (0.000-0.056) Total Protein 6.1 G/DL (6.4-8.2) L Albumin 2.6 G/DL (3.4-5.0) L Globulin 3.5 g/dL Albumin/Globulin Ratio 0.7 (1.0-2.7) L Human Chorionic Gonadotropin, Quant < 1 mIU/mL (1-6) L Test 03/10/18 04:15 White Blood Count 14.5 K/UL (4.8-10.8) H Red Blood Count 3.91 M/UL (4.20-5.40) L Hemoglobin 12.0 G/DL (12.0-16.0) Hematocrit 34.3 % (37.0-47.0) L Mean Corpuscular Volume 88 FL (80-99) Mean Corpuscular Hemoglobin 30.6 PG (27.0-31.0) Mean Corpuscular Hemoglobin Concent 34.9 G/DL (32.0-36.0) Red Cell Distribution Width 14.2 % (11.6-14.8) Platelet Count 325 K/UL (150-450) Mean Platelet Volume 6.6 FL (6.5-10.1) Neutrophils (%) (Auto) % (45.0-75.0) Lymphocytes (%) (Auto) % (20.0-45.0) Monocytes (%) (Auto) % (1.0-10.0) Eosinophils (%) (Auto) % (0.0-3.0) Basophils (%) (Auto) % (0.0-2.0) Neutrophils % (Manual) Pending Lymphocytes % (Manual) Pending Platelet Estimate Pending Platelet Morphology Pending Sodium Level 141 MMOL/L (136-145) Potassium Level 3.8 MMOL/L (3.5-5.1) Chloride Level 110 MMOL/L (98-107) H Carbon Dioxide Level 23 MMOL/L (21-32) Anion Gap 8 mmol/L (5-15) Blood Urea Nitrogen 20 mg/dL (7-18) H Creatinine 1.3 MG/DL (0.55-1.30) Estimat Glomerular Filtration Rate 58.3 mL/min (>60) Glucose Level 134 MG/DL (74-106) H Calcium Level 7.9 MG/DL (8.5-10.1) NESSA PATTERSON M.D. Mar 10, 2018 08:17
[2018-03-10] MEDS: Pantoprazole Inj IVP SCH (08:33)
[2018-03-10] MEDS: Heparin 5000 units/ml inj SUBQ SCH ×2 (08:42→20:48)
--- NOTE | 2018-03-10 10:36 | General Progress Note ---
Assessment/Plan Problem List: (1) Altered mental state ICD Codes: R41.82 - Altered mental status, unspecified SNOMED: 697200008 (2) LYNNE (acute kidney injury) Assessment & Plan: better ICD Codes: N17.9 - Acute kidney failure, unspecified SNOMED: 74888677 (3) Drug overdose ICD Codes: T50.901A - Poisoning by unspecified drugs, medicaments and biological substances, accidental (unintentional), initial encounter SNOMED: 53274684 (4) Schizophrenia ICD Codes: F20.9 - Schizophrenia, unspecified SNOMED: 52104905 (5) Acute respiratory failure with hypercapnia ICD Codes: J96.02 - Acute respiratory failure with hypercapnia SNOMED: 396813959 (6) Shock liver ICD Codes: K72.00 - Acute and subacute hepatic failure without coma SNOMED: 458070421 Assessment/Plan Try to extubate today abxs follow labs Discussed with RN Subjective Allergies: Coded Allergies: No Known Allergies (Unverified , 03/08/18) Subjective still intubated Objective Last 24 Hour Vital Signs Date Time Temp Pulse Resp B/P (MAP) Pulse Ox O2 Delivery O2 Flow Rate FiO2 03/10/18 09:00 91 16 132/61 97 Mechanical Ventilator 30 03/10/18 08:30 30 03/10/18 08:00 83 16 142/76 97 Mechanical Ventilator 30 03/10/18 07:29 91 16 30 03/10/18 07:00 99.7 91 16 147/76 97 Mechanical Ventilator 30 99.7 03/10/18 06:00 84 16 130/72 97 Mechanical Ventilator 30 03/10/18 05:00 88 16 135/72 97 Mechanical Ventilator 30 03/10/18 04:58 94 16 30 03/10/18 04:00 99.0 91 17 150/78 97 Mechanical Ventilator 30 99.0 03/10/18 04:00 30 03/10/18 03:32 84 16 30 03/10/18 03:00 91 17 146/74 98 Mechanical Ventilator 30 03/10/18 02:00 90 16 114/55 98 Mechanical Ventilator 30 03/10/18 01:26 86 16 30 03/10/18 01:15 92 03/10/18 01:00 89 16 115/59 98 Mechanical Ventilator 30 03/10/18 00:00 30 03/10/18 00:00 90 4/30/18 00:00 98.8 94 16 133/63 97 Mechanical Ventilator 30 98.8 03/09/18 23:21 93 16 30 03/09/18 23:00 93 16 107/55 99 Mechanical Ventilator 30 03/09/18 22:45 107/55 03/09/18 22:30 107/55 03/09/18 22:00 89 16 107/55 99 Mechanical Ventilator 30 03/09/18 21:25 90 18 30 03/09/18 21:00 89 16 112/65 99 Mechanical Ventilator 30 03/09/18 20:00 99.0 89 16 112/65 99 Mechanical Ventilator 30 99.0 03/09/18 20:00 90 03/09/18 20:00 30 03/09/18 19:24 86 16 30 03/09/18 19:00 89 16 103/53 99 Mechanical Ventilator 30 03/09/18 18:00 88 16 102/56 99 Mechanical Ventilator 30 03/09/18 17:00 91 18 93/49 100 Mechanical Ventilator 30 03/09/18 16:55 89 19 30 03/09/18 16:00 30 03/09/18 16:00 97.8 91 17 90/45 100 Mechanical Ventilator 30 97.8 03/09/18 16:00 90 03/09/18 15:00 87 33 101/49 100 Mechanical Ventilator 30 03/09/18 14:31 91 18 30 03/09/18 14:00 85 24 117/52 100 Mechanical Ventilator 30 03/09/18 13:15 84 18 30 03/09/18 13:15 30 03/09/18 13:00 84 24 107/55 100 Bi-pap 24 03/09/18 12:00 24 03/09/18 12:00 74 24 99/48 100 Bi-pap 24 03/09/18 12:00 76 03/09/18 11:32 100 Bi-pap 24 03/09/18 11:31 76 24 Bi-pap 24 03/09/18 11:30 24 03/09/18 11:27 76 24 100 Facial 24 03/09/18 11:00 83 31 92/44 100 Bi-pap 24 Intake and Output 03/09/18 03/10/18 19:00 07:00 Intake Total 2569 ml 1800 ml Output Total 1590 ml 490 ml Balance 979 ml 1310 ml Intake IV Total 2569 ml 1800 ml Output Urine Total 1590 ml 490 ml Laboratory Tests 03/09/18 11:45: Urine Color Yellow, Urine Appearance Clear, Urine pH 5, Urine Specific [place] 1.020, Urine Protein 2+H, Urine Glucose (UA) Negative, Urine Ketones Negative, Urine Occult Blood 4+H, Urine Nitrite Negative, Urine Bilirubin Negative, Urine Urobilinogen Normal, Urine Leukocyte Esterase 1+H, Urine RBC 2-4H, Urine WBC 2-4 , Urine Squamous Epithelial Cells Few, Urine Bacteria Occasional, Urine Mucus FewH, Urine Yeast OccasionalH 03/09/18 12:45: Arterial Blood pH 7.150*L, Arterial Blood Partial Pressure CO2 65.8*H, Arterial Blood Partial Pressure O2 75.7, Arterial Blood HCO3 22.4, Arterial Blood Oxygen Saturation 94.5, Arterial Blood Base Excess -7.3, Theo Test Positive 03/09/18 21:10: White Blood Count 16.1H, Red Blood Count 3.96L, Hemoglobin 11.5L, Hematocrit 34.6L, Mean Corpuscular Volume 87, Mean Corpuscular Hemoglobin 29.1, Mean Corpuscular Hemoglobin Concent 33.3, Red Cell Distribution Width 14.3, Platelet Count 312, Mean Platelet Volume 5.7L, Neutrophils (%) (Auto) , Lymphocytes (%) ( Auto) , Monocytes (%) (Auto) , Eosinophils (%) (Auto) , Basophils (%) (Auto) , Differential Total Cells Counted 100, Neutrophils % (Manual) 89H, Lymphocytes % (Manual) 8L, Monocytes % (Manual) 3, Eosinophils % (Manual) 0, Basophils % ( Manual) 0, Band Neutrophils 0, Platelet Estimate Adequate, Platelet Morphology Normal, Red Blood Cell Morphology Normal, Prothrombin Time 16.4H, Prothromb Time International Ratio 1.6H, Sodium Level 138, Potassium Level 3.9, Chloride Level 109H, Carbon Dioxide Level 21, Anion Gap 8, Blood Urea Nitrogen 25H, Creatinine 1.8#H, Estimat Glomerular Filtration Rate 40.0, Glucose Level 136H, Lactic Acid Level 1.50, Calcium Level 7.6L, Total Bilirubin 0.4, Aspartate Amino Transf (AST/SGOT) 1264H, Alanine Aminotransferase (ALT/SGPT) 1141H, Alkaline Phosphatase 97, Total Creatine Kinase 2558H, Creatine Kinase MB 20.9H, Creatine Kinase MB Relative Index 0.8, Troponin I 0.456H, Total Protein 6.1L, Albumin 2.6L, Globulin 3.5, Albumin/Globulin Ratio 0.7L, Human Chorionic Gonadotropin, Quant < 1L 03/10/18 04:15: White Blood Count 14.5H, Red Blood Count 3.91L, Hemoglobin 12.0, Hematocrit 34.3L, Mean Corpuscular Volume 88, Mean Corpuscular Hemoglobin 30.6, Mean Corpuscular Hemoglobin Concent 34.9, Red Cell Distribution Width 14.2, Platelet Count 325, Mean Platelet Volume 6.6, Neutrophils (%) (Auto) , Lymphocytes (%) ( Auto) , Monocytes (%) (Auto) , Eosinophils (%) (Auto) , Basophils (%) (Auto) , Differential Total Cells Counted 100, Neutrophils % (Manual) 86H, Lymphocytes % (Manual) 12L, Monocytes % (Manual) 2, Eosinophils % (Manual) 0, Basophils % ( Manual) 0, Band Neutrophils 0, Platelet Estimate Adequate, Platelet Morphology Normal, Sodium Level 141, Potassium Level 3.8, Chloride Level 110H, Carbon Dioxide Level 23, Anion Gap 8, Blood Urea Nitrogen 20H, Creatinine 1.3, Estimat Glomerular Filtration Rate 58.3, Glucose Level 134H, Calcium Level 7.9L, Anisocytosis 1+ 03/10/18 08:30: Arterial Blood pH 7.353, Arterial Blood Partial Pressure CO2 41.2, Arterial Blood Partial Pressure O2 97.4, Arterial Blood HCO3 22.4, Arterial Blood Oxygen Saturation 96.9, Arterial Blood Base Excess -3.0, Theo Test Positive 03/10/18 09:35: Troponin I [Pending] Height (Feet): 5 Height (Inches): 6.00 Weight (Pounds): 194 Cardiovascular: normal rate Respiratory/Chest: lungs clear Abdomen: soft TERRI PEREZ Mar 10, 2018 10:36
--- NOTE | 2018-03-10 11:01 | Cardiology Report ---
APPROVED REPORT EXAM: Two-dimensional and M-mode echocardiogram with Doppler and color Doppler. INDICATION Atrial Flutter M-Mode DIMENSIONS IVSd0.9 (0.7-1.1cm)Left Atrium (MM)3.2 (1.6-4.0cm) LVDd3.6 (3.5-5.6cm)Aortic Root2.8 (2.0-3.7cm) PWd0.9 (0.7-1.1cm)Aortic Cusp Exc.2.0 (1.5-2.0cm) LVDs1.6 (2.5-4.0cm) PWs1.6 cm Technically difficult study due to poor apical windows. Study quality precludes accurate assessment of regional wall motion. Normal left ventricular chamber size, systolic function and wall motion. Left ventricular ejection fraction estimated to be 65 %. No evidence of left ventricular hypertrophy. No evidence of pericardial effusion. Normal appearing aortic, mitral, pulmonic and tricuspid valves. IVC is normal in size with physiological collapse. A color flow and spectral Doppler study was performed and revealed: No aortic insufficiency. No mitral regurgitation. Mitral inflow indicate normal left ventricular diastolic function. Mild tricuspid regurgitation. Tricuspid systolic velocities suggests peak right ventricular systolic pressure of 56 mmHg, consistent with moderate pulmonary hypertension. Trace pulmonic regurgitation present.
[2018-03-10] MEDS: cefTRIAXone 1 GM in D5W 55 ML IVPB SCH (11:07)
--- NOTE | 2018-03-10 11:46 | Diagnostic Imaging Report ---
Indication: Endotracheal intubation Technique: XRAY Chest 1v Comparison: None FINDINGS/IMPRESSION: Endotracheal tube tip terminates approximately 3.2 cm above the oral. Heart size and mediastinal contours are within normal limits. There are bibasilar lung coarse reticular opacities, left greater than right, which may be related to subsegmental atelectasis, scarring or fibrosis. Pneumonia should be excluded clinically. No significant pleural effusion. No pneumothorax. No acute osseous abnormality. This corresponds with the [facility] preliminary report.
[2018-03-10] MEDS ORDERED: Haloperidol 5mg/ml Inj IM PRN (12:30)
[2018-03-10] MEDS ORDERED: fluPHENAZine Decanoate 25mg Inj IM SCH (14:00)
--- NOTE | 2018-03-10 14:20 | Infectious Diseases Prog Note ---
Assessment/Plan Assessment/Plan A; Sepsis/SIRS Acute renal failure improving Polysubstance abuse( PCP, opioids) Shocked liver Schizophrenia P; Continue Rocephin Will f/u cultures Subjective ROS Limited/Unobtainable: Yes Neurologic: Reports: other - on restraint Allergies: Coded Allergies: No Known Allergies (Unverified , 03/08/18) Objective Vital Signs Last 24 Hour Vital Signs Date Time Temp Pulse Resp B/P (MAP) Pulse Ox O2 Delivery O2 Flow Rate FiO2 03/10/18 12:00 99.0 98 15 138/74 95 Nasal Cannula 2.0 99.0 03/10/18 12:00 2.0 03/10/18 11:08 98 Nasal Cannula 2.0 28 03/10/18 11:07 Nasal Cannula 2.0 28 03/10/18 11:00 2.0 03/10/18 11:00 107 24 139/77 94 Nasal Cannula 2.0 03/10/18 10:55 Nasal Cannula 2.0 28 03/10/18 10:00 100 13 155/83 95 Mechanical Ventilator 30 03/10/18 09:00 91 16 132/61 97 Mechanical Ventilator 30 03/10/18 08:30 30 03/10/18 08:00 83 16 142/76 97 Mechanical Ventilator 30 03/10/18 08:00 30 03/10/18 08:00 91 03/10/18 07:29 91 16 30 03/10/18 07:00 99.7 91 16 147/76 97 Mechanical Ventilator 30 99.7 03/10/18 06:00 84 16 130/72 97 Mechanical Ventilator 30 03/10/18 05:00 88 16 135/72 97 Mechanical Ventilator 30 03/10/18 04:58 94 16 30 03/10/18 04:00 99.0 91 17 150/78 97 Mechanical Ventilator 30 99.0 03/10/18 04:00 30 03/10/18 03:32 84 16 30 03/10/18 03:00 91 17 146/74 98 Mechanical Ventilator 30 03/10/18 02:00 90 16 114/55 98 Mechanical Ventilator 30 03/10/18 01:26 86 16 30 03/10/18 01:15 92 03/10/18 01:00 89 16 115/59 98 Mechanical Ventilator 30 03/10/18 00:00 30 03/10/18 00:00 90 03/10/18 00:00 98.8 94 16 133/63 97 Mechanical Ventilator 30 98.8 03/09/18 23:21 93 16 30 03/09/18 23:00 93 16 107/55 99 Mechanical Ventilator 30 03/09/18 22:45 107/55 03/09/18 22:30 107/55 03/09/18 22:00 89 16 107/55 99 Mechanical Ventilator 30 03/09/18 21:25 90 18 30 03/09/18 21:00 89 16 112/65 99 Mechanical Ventilator 30 03/09/18 20:00 99.0 89 16 112/65 99 Mechanical Ventilator 30 99.0 03/09/18 20:00 90 03/09/18 20:00 30 03/09/18 19:24 86 16 30 03/09/18 19:00 89 16 103/53 99 Mechanical Ventilator 30 03/09/18 18:00 88 16 102/56 99 Mechanical Ventilator 30 03/09/18 17:00 91 18 93/49 100 Mechanical Ventilator 30 03/09/18 16:55 89 19 30 03/09/18 16:00 30 03/09/18 16:00 97.8 91 17 90/45 100 Mechanical Ventilator 30 97.8 03/09/18 16:00 90 03/09/18 15:00 87 33 101/49 100 Mechanical Ventilator 30 03/09/18 14:31 91 18 30 Height (Feet): 5 Height (Inches): 6.00 Weight (Pounds): 194 General Appearance: no acute distress HEENT: other - O2 by nasal cannula Respiratory/Chest: lungs clear Cardiovascular: normal rate Abdomen: soft, non tender Genitourinary: other - Rosenberg catheter Extremities: no edema Neurologic/Psychiatric: other - sleeping Microbiology Date/Time Source Procedure Growth Status 03/09/18 11:45 Urine,Clean Catch Urine Culture - Preliminary Resulted Laboratory Tests Test 03/09/18 21:10 03/10/18 04:15 03/10/18 08:30 03/10/18 09:35 White Blood Count 16.1 K/UL (4.8-10.8) H 14.5 K/UL (4.8-10.8) H Red Blood Count 3.96 M/UL (4.20-5.40) L 3.91 M/UL (4.20-5.40) L Hemoglobin 11.5 G/DL (12.0-16.0) L 12.0 G/DL (12.0-16.0) Hematocrit 34.6 % (37.0-47.0) L 34.3 % (37.0-47.0) L Mean Corpuscular Volume 87 FL (80-99) 88 FL (80-99) Mean Corpuscular Hemoglobin 29.1 PG (27.0-31.0) 30.6 PG (27.0-31.0) Mean Corpuscular Hemoglobin Concent 33.3 G/DL (32.0-36.0) 34.9 G/DL (32.0-36.0) Red Cell Distribution Width 14.3 % (11.6-14.8) 14.2 % (11.6-14.8) Platelet Count 312 K/UL (150-450) 325 K/UL (150-450) Mean Platelet Volume 5.7 FL (6.5-10.1) L 6.6 FL (6.5-10.1) Neutrophils (%) (Auto) % (45.0-75.0) % (45.0-75.0) Lymphocytes (%) (Auto) % (20.0-45.0) % (20.0-45.0) Monocytes (%) (Auto) % (1.0-10.0) % (1.0-10.0) Eosinophils (%) (Auto) % (0.0-3.0) % (0.0-3.0) Basophils (%) (Auto) % (0.0-2.0) % (0.0-2.0) Differential Total Cells Counted 100 100 Neutrophils % (Manual) 89 % (45-75) H 86 % (45-75) H Lymphocytes % (Manual) 8 % (20-45) L 12 % (20-45) L Monocytes % (Manual) 3 % (1-10) 2 % (1-10) Eosinophils % (Manual) 0 % (0-3) 0 % (0-3) Basophils % (Manual) 0 % (0-2) 0 % (0-2) Band Neutrophils 0 % (0-8) 0 % (0-8) Platelet Estimate Adequate Adequate Platelet Morphology Normal Normal Red Blood Cell Morphology Normal Prothrombin Time 16.4 SEC (9.30-11.50) H Prothromb Time International Ratio 1.6 (0.9-1.1) H Sodium Level 138 MMOL/L (136-145) 141 MMOL/L (136-145) Potassium Level 3.9 MMOL/L (3.5-5.1) 3.8 MMOL/L (3.5-5.1) Chloride Level 109 MMOL/L (98-107) H 110 MMOL/L (98-107) H Carbon Dioxide Level 21 MMOL/L (21-32) 23 MMOL/L (21-32) Anion Gap 8 mmol/L (5-15) 8 mmol/L (5-15) Blood Urea Nitrogen 25 mg/dL (7-18) H 20 mg/dL (7-18) H Creatinine 1.8 MG/DL (0.55-1.30) #H 1.3 MG/DL (0.55-1.30) Estimat Glomerular Filtration Rate 40.0 mL/min (>60) 58.3 mL/min (>60) Glucose Level 136 MG/DL (74-106) H 134 MG/DL (74-106) H Lactic Acid Level 1.50 mmol/L (0.66-2.22) Calcium Level 7.6 MG/DL (8.5-10.1) L 7.9 MG/DL (8.5-10.1) L Total Bilirubin 0.4 MG/DL (0.2-1.0) Aspartate Amino Transf (AST/SGOT) 1264 U/L (15-37) H Alanine Aminotransferase (ALT/SGPT) 1141 U/L (12-78) H Alkaline Phosphatase 97 U/L (46-116) Total Creatine Kinase 2558 U/L (26-308) H Creatine Kinase MB 20.9 NG/ML (0.0-3.6) H Creatine Kinase MB Relative Index 0.8 Troponin I 0.456 ng/mL (0.000-0.056) 0.349 ng/mL (0.000-0.056) Total Protein 6.1 G/DL (6.4-8.2) L Albumin 2.6 G/DL (3.4-5.0) L Globulin 3.5 g/dL Albumin/Globulin Ratio 0.7 (1.0-2.7) L Human Chorionic Gonadotropin, Quant < 1 mIU/mL (1-6) L Anisocytosis 1+ Arterial Blood pH 7.353 (7.350-7.450) Arterial Blood Partial Pressure CO2 41.2 mmHg (35.0-45.0) Arterial Blood Partial Pressure O2 97.4 mmHg (75.0-100.0) Arterial Blood HCO3 22.4 mmol/L (22.0-26.0) Arterial Blood Oxygen Saturation 96.9 % (92.0-98.0) Arterial Blood Base Excess -3.0 Theo Test Positive Current Medications Medications (Trade) Dose Ordered Sig/Melissa Route PRN Reason Start Time Stop Time Status Last Admin Dose Admin Acetaminophen (Tylenol) 650 mg Q4H PRN ORAL Mild Pain (Pain Scale 1-3) 03/08/18 22:45 04/07/18 22:44 Ceftriaxone Sodium 1 gm/ Dextrose 55 ml @ 110 mls/hr Q24H IVPB 03/09/18 11:00 03/16/18 10:59 03/10/18 11:07 Chlorhexidine Gluconate (Mima-Hex 2%) 1 applic DAILY@2000 TOPIC 03/09/18 20:00 04/08/18 19:59 03/09/18 19:58 Dextrose (Dextrose 50%) 25 ml STAT PRN IV Hypoglycemia 03/08/18 22:45 04/07/18 22:44 Dextrose (Dextrose 50%) 50 ml STAT PRN IV Hypoglycemia 03/08/18 22:45 04/07/18 22:44 Dextrose/Sodium Chloride 1,000 ml @ 150 mls/hr Q6H40M IV 03/09/18 14:30 04/08/18 14:29 03/10/18 10:59 Dopamine HCl/ Dextrose 250 ml @ 0 mls/hr Q24H IV 03/08/18 22:30 04/07/18 22:29 03/08/18 23:03 Fluphenazine Decanoate (Prolixin Deconate) 25 mg ONCE@1400 IM 03/10/18 14:00 03/10/18 23:59 Haloperidol Lactate (Haldol) 5 mg Q6H PRN IM Agitation 03/10/18 12:30 04/09/18 12:29 Heparin Sodium (Porcine) (Heparin 5000 units/ml) 5,000 units EVERY 12 HOURS SUBQ 03/09/18 09:00 04/08/18 08:59 03/10/18 08:42 Heparin Sodium/ Sodium Chloride (Heparin 2000 units/Ns 1000ml premix) 2,000 unit ONCE PRN INJ PICC LINE PLACEMENT 03/09/18 08:45 03/10/18 23:59 Lidocaine HCl (Xylocaine 1% 30ml) 30 ml ONCE PRN INJ PICC LINE PLACEMENT 03/09/18 08:45 03/10/18 23:59 Lorazepam (Ativan 2mg/ml 1ml) 2 mg Q4H PRN IV AGITATION 03/09/18 09:00 03/16/18 08:59 03/10/18 02:33 Lorazepam (Ativan) 0.5 mg Q6H PRN ORAL For Anxiety 03/09/18 08:45 03/16/18 08:44 Norepinephrine Bitartrate 4 mg/ Dextrose 250 ml @ 0 mls/hr Q24H IV 03/08/18 22:45 04/07/18 22:44 Ondansetron HCl (Zofran) 4 mg Q4H PRN IVP Nausea & Vomiting 03/09/18 13:45 04/08/18 13:44 03/10/18 14:04 Pantoprazole (Protonix) 40 mg DAILY IVP 03/09/18 09:00 04/08/18 08:59 03/10/18 08:33 Risperidone (RisperDAL) 1 mg BID ORAL 03/10/18 18:00 04/09/18 17:59 YVES PEREZ Mar 10, 2018 14:20
--- NOTE | 2018-03-10 15:06 | General Progress Note ---
Assessment/Plan Status: stable Assessment/Plan the pt is confused and delirious. the pt has episodes of agitation and responding to internal stimuli prolexin dec haldol Im respirdal 1mg bid the pt will reassessed for danger to self Subjective Date patient seen: Mar 10, 2018 Neurologic/Psychiatric: Reports: anxiety, emotional problems Allergies: Coded Allergies: No Known Allergies (Unverified , 03/08/18) Objective Last 24 Hour Vital Signs Date Time Temp Pulse Resp B/P (MAP) Pulse Ox O2 Delivery O2 Flow Rate FiO2 03/10/18 12:00 99.0 98 15 138/74 95 Nasal Cannula 2.0 99.0 03/10/18 12:00 2.0 03/10/18 11:08 98 Nasal Cannula 2.0 28 03/10/18 11:07 Nasal Cannula 2.0 28 03/10/18 11:00 2.0 03/10/18 11:00 107 24 139/77 94 Nasal Cannula 2.0 03/10/18 10:55 Nasal Cannula 2.0 28 03/10/18 10:00 100 13 155/83 95 Mechanical Ventilator 30 03/10/18 09:00 91 16 132/61 97 Mechanical Ventilator 30 03/10/18 08:30 30 03/10/18 08:00 83 16 142/76 97 Mechanical Ventilator 30 03/10/18 08:00 30 03/10/18 08:00 91 03/10/18 07:29 91 16 30 03/10/18 07:00 99.7 91 16 147/76 97 Mechanical Ventilator 30 99.7 03/10/18 06:00 84 16 130/72 97 Mechanical Ventilator 30 03/10/18 05:00 88 16 135/72 97 Mechanical Ventilator 30 03/10/18 04:58 94 16 30 03/10/18 04:00 99.0 91 17 150/78 97 Mechanical Ventilator 30 99.0 03/10/18 04:00 30 03/10/18 03:32 84 16 30 03/10/18 03:00 91 17 146/74 98 Mechanical Ventilator 30 03/10/18 02:00 90 16 114/55 98 Mechanical Ventilator 30 03/10/18 01:26 86 16 30 03/10/18 01:15 92 03/10/18 01:00 89 16 115/59 98 Mechanical Ventilator 30 03/10/18 00:00 30 03/10/18 00:00 90 03/10/18 00:00 98.8 94 16 133/63 97 Mechanical Ventilator 30 98.8 03/09/18 23:21 93 16 30 03/09/18 23:00 93 16 107/55 99 Mechanical Ventilator 30 03/09/18 22:45 107/55 03/09/18 22:30 107/55 03/09/18 22:00 89 16 107/55 99 Mechanical Ventilator 30 03/09/18 21:25 90 18 30 03/09/18 21:00 89 16 112/65 99 Mechanical Ventilator 30 03/09/18 20:00 99.0 89 16 112/65 99 Mechanical Ventilator 30 99.0 03/09/18 20:00 90 03/09/18 20:00 30 03/09/18 19:24 86 16 30 03/09/18 19:00 89 16 103/53 99 Mechanical Ventilator 30 03/09/18 18:00 88 16 102/56 99 Mechanical Ventilator 30 03/09/18 17:00 91 18 93/49 100 Mechanical Ventilator 30 03/09/18 16:55 89 19 30 03/09/18 16:00 30 03/09/18 16:00 97.8 91 17 90/45 100 Mechanical Ventilator 30 97.8 03/09/18 16:00 90 Intake and Output 03/09/18 03/10/18 19:00 07:00 Intake Total 2569 ml 1800 ml Output Total 1590 ml 490 ml Balance 979 ml 1310 ml Intake IV Total 2569 ml 1800 ml Output Urine Total 1590 ml 490 ml Laboratory Tests 03/09/18 21:10: White Blood Count 16.1H, Red Blood Count 3.96L, Hemoglobin 11.5L, Hematocrit 34.6L, Mean Corpuscular Volume 87, Mean Corpuscular Hemoglobin 29.1, Mean Corpuscular Hemoglobin Concent 33.3, Red Cell Distribution Width 14.3, Platelet Count 312, Mean Platelet Volume 5.7L, Neutrophils (%) (Auto) , Lymphocytes (%) ( Auto) , Monocytes (%) (Auto) , Eosinophils (%) (Auto) , Basophils (%) (Auto) , Differential Total Cells Counted 100, Neutrophils % (Manual) 89H, Lymphocytes % (Manual) 8L, Monocytes % (Manual) 3, Eosinophils % (Manual) 0, Basophils % ( Manual) 0, Band Neutrophils 0, Platelet Estimate Adequate, Platelet Morphology Normal, Red Blood Cell Morphology Normal, Prothrombin Time 16.4H, Prothromb Time International Ratio 1.6H, Sodium Level 138, Potassium Level 3.9, Chloride Level 109H, Carbon Dioxide Level 21, Anion Gap 8, Blood Urea Nitrogen 25H, Creatinine 1.8#H, Estimat Glomerular Filtration Rate 40.0, Glucose Level 136H, Lactic Acid Level 1.50, Calcium Level 7.6L, Total Bilirubin 0.4, Aspartate Amino Transf (AST/SGOT) 1264H, Alanine Aminotransferase (ALT/SGPT) 1141H, Alkaline Phosphatase 97, Total Creatine Kinase 2558H, Creatine Kinase MB 20.9H, Creatine Kinase MB Relative Index 0.8, Troponin I 0.456H, Total Protein 6.1L, Albumin 2.6L, Globulin 3.5, Albumin/Globulin Ratio 0.7L, Human Chorionic Gonadotropin, Quant < 1L 03/10/18 04:15: White Blood Count 14.5H, Red Blood Count 3.91L, Hemoglobin 12.0, Hematocrit 34.3L, Mean Corpuscular Volume 88, Mean Corpuscular Hemoglobin 30.6, Mean Corpuscular Hemoglobin Concent 34.9, Red Cell Distribution Width 14.2, Platelet Count 325, Mean Platelet Volume 6.6, Neutrophils (%) (Auto) , Lymphocytes (%) ( Auto) , Monocytes (%) (Auto) , Eosinophils (%) (Auto) , Basophils (%) (Auto) , Differential Total Cells Counted 100, Neutrophils % (Manual) 86H, Lymphocytes % (Manual) 12L, Monocytes % (Manual) 2, Eosinophils % (Manual) 0, Basophils % ( Manual) 0, Band Neutrophils 0, Platelet Estimate Adequate, Platelet Morphology Normal, Sodium Level 141, Potassium Level 3.8, Chloride Level 110H, Carbon Dioxide Level 23, Anion Gap 8, Blood Urea Nitrogen 20H, Creatinine 1.3, Estimat Glomerular Filtration Rate 58.3, Glucose Level 134H, Calcium Level 7.9L, Anisocytosis 1+ 03/10/18 08:30: Arterial Blood pH 7.353, Arterial Blood Partial Pressure CO2 41.2, Arterial Blood Partial Pressure O2 97.4, Arterial Blood HCO3 22.4, Arterial Blood Oxygen Saturation 96.9, Arterial Blood Base Excess -3.0, Theo Test Positive 4/30/18 09:35: Troponin I 0.349H Height (Feet): 5 Height (Inches): 6.00 Weight (Pounds): 194 General Appearance: WD/WN, no apparent distress, alert, confused, agitated Steven Bhatt M.D. Mar 10, 2018 15:06
--- NOTE | 2018-03-10 19:15 | Consultation ---
DATE OF CONSULTATION: 03/09/2018 The patient is a late entry. CONSULTING PHYSICIAN: Steven Bhatt M.D. HISTORY OF PRESENT ILLNESS: This is a 32-year-old female with a history of schizophrenia, who has been admitted status post overdose on Tylenol, Benadryl, and blood pressure medication. The patient is presenting waxing and waning consciousness. She is not a reliable historian. The patient is responding to internal stimuli. She has poor insight into her current mental condition. The patient is irritable and anxious. PAST PSYCHIATRIC HISTORY: She has a history of schizophrenia, history of suicide attempt in the past, several psychiatric hospitalizations. PAST MEDICAL HISTORY: Significant for asthma, high blood pressure, overweight. SUBSTANCE ABUSE HISTORY: No known history of illicit drug use or alcohol. Nonsmoker. MENTAL STATUS EXAMINATION: The patient is alert and oriented to time, self, and place. She is having waxing and waning consciousness and poor cognition and mood is irritable and angry. Affect is constricted. Congruent with mood. Thought process is concrete. Thought content, no suicidal or homicidal ideations. ASSESSMENT: AXIS I Schizophrenia, chronic paranoid type. AXIS II Deferred. AXIS III Status post overdose. AXIS IV Low. AXIS V Global assessment of functioning is 20. PLAN: 1. The patient is currently on Ativan. We will reassess the patient when the patient is more alert and less confused. 2. The patient may need PET team assessment for psychiatric hospitalizations. 3. We will start the patient on antipsychotics. Steven Bhatt M.D. DR: Kamryn JOB#: [id number] CC:
[2018-03-10] MEDS: Dyna-Hex 2% Top Sol 2oz TOPIC SCH (20:10)
[2018-03-10] MEDS ORDERED: fluPHENAZine Decanoate 25mg Inj IM ONE (21:00)
[2018-03-10] MEDS: DOPamine 400mg/250ml 250 ML IV SCH (22:30)
[2018-03-11] VITALS (24 sets, daily range): BP systolic 110–134; BP diastolic 60–90
[2018-03-11] MEDS: LORazepam Inj 2mg/ml 1ml IV PRN (00:58)
[2018-03-11] MEDS: D5NS 1,000 ML IV SCH ×2 (04:24→06:30)
--- NOTE | 2018-03-11 08:44 | Pulmonolgy Critical Care Note ---
Critical Care - Asmt/Plan Problems: (1) Altered mental state (2) Shock (3) LYNNE (acute kidney injury) (4) PCP intoxication (5) Opiate misuse (6) Tylenol overdose (7) Drug overdose, multiple drugs Respiratory: monitor respiratory rate, CXR - in a few days to assess resolution of infiltrates, other - optimize pulmonary hygiene/mobilzie as tolerated Cardiac: continue to monitor HR/BP Renal: keep IV fluid, check electrolytes Infectious Disease: continue antibiotics - per ID Gastrointestinal: other - advance diet per CLAIMS ADJUDICATOR recs with STRICT aspiration precautions Endocrine: monitor blood sugar Hematologic: monitor H/H Neurologic: keep patient comfortable, other Affect: PRN ativan, other - F/U psych recs, will need sitter once she leaves the ICU, 5150, possible PET team eval and transfer to psych facility Prophylaxis: Protonix, Heparin Disposition: transfer to - MED SURG with SITTER Time Spent (Minutes): 40 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, 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, ID, 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 Discussed with: nurses, consultants Critical Care - Objective Last 24 Hour Vital Signs Date Time Temp Pulse Resp B/P (MAP) Pulse Ox O2 Delivery O2 Flow Rate FiO2 03/11/18 07:00 88 18 131/61 93 Room Air 03/11/18 06:00 80 18 124/71 93 Room Air 03/11/18 05:00 81 18 125/71 93 Room Air 03/11/18 04:00 77 03/11/18 04:00 98.4 77 18 110/69 93 Room Air 98.4 03/11/18 03:00 96 18 125/82 98 Room Air 03/11/18 02:00 76 20 129/87 100 Room Air 03/11/18 01:00 78 20 130/82 100 Room Air 03/11/18 00:00 98.0 86 20 126/83 99 Room Air 98.0 03/11/18 00:00 91 03/10/18 23:00 86 20 123/79 99 Room Air 03/10/18 22:45 135/81 03/10/18 22:30 135/81 03/10/18 22:00 85 19 130/80 100 Nasal Cannula 2.0 03/10/18 21:00 80 19 151/81 100 Nasal Cannula 2.0 03/10/18 20:00 85 03/10/18 20:00 98.2 85 19 140/81 100 Nasal Cannula 2.0 98.2 03/10/18 19:40 98 Nasal Cannula 2.0 28 03/10/18 19:40 Nasal Cannula 2.0 28 03/10/18 19:00 92 19 163/89 100 Nasal Cannula 2.0 03/10/18 18:00 88 19 167/79 100 Nasal Cannula 2.0 03/10/18 17:00 83 14 146/86 92 Nasal Cannula 2.0 03/10/18 16:00 2.0 03/10/18 16:00 89 03/10/18 16:00 98.6 84 14 148/89 92 Nasal Cannula 2.0 98.6 03/10/18 15:00 88 16 161/77 94 Nasal Cannula 2.0 03/10/18 14:00 90 14 150/79 92 Nasal Cannula 2.0 03/10/18 13:00 92 15 120/70 92 Nasal Cannula 2.0 03/10/18 12:00 99.0 98 15 138/74 95 Nasal Cannula 2.0 99.0 03/10/18 12:00 99 03/10/18 12:00 2.0 03/10/18 11:08 98 Nasal Cannula 2.0 28 03/10/18 11:07 Nasal Cannula 2.0 28 03/10/18 11:00 2.0 03/10/18 11:00 107 24 139/77 94 Nasal Cannula 2.0 03/10/18 10:55 Nasal Cannula 2.0 28 03/10/18 10:00 100 13 155/83 95 Mechanical Ventilator 30 03/10/18 09:00 91 16 132/61 97 Mechanical Ventilator 30 Status: other - confsued, awake Condition: improving HEENT: atraumatic, normocephalic Neck: full ROM Lungs: clear Heart: HR/BP stable Abdomen: soft, non-tender, active bowel sounds Extremities: no C/C/E Micro: Microbiology Date/Time Source Procedure Growth Status 03/09/18 21:10 Blood Blood Culture - Preliminary NO GROWTH AFTER 24 HOURS Resulted 03/09/18 21:00 Blood Blood Culture - Preliminary NO GROWTH AFTER 24 HOURS Resulted 03/09/18 11:45 Urine,Clean Catch Urine Culture - Preliminary YEAST Resulted Accucheck: 123 Critical Care - Subjective ROS Limited/Unobtainable: Yes ICU Day: 4 Intubation Day: N/A Interval Events: EXTUBATED, AFVSS, stable on RA, confused, WCt better No cough, no SOB, no F/C, no CP, no NVDC Psych eval noted Condition: improving IV Access: peripheral EKG Rhythm: Sinus Rhythm FI02: 28 Vent Support Breath Rate: 16 Vent Support Mode: CPAP Vent Tidal Volume: 600 Sputum Amount: Small PEEP: 5.0 PIP: 30 I&O: Intake and Output 03/10/18 03/11/18 19:00 07:00 Intake Total 600 ml 1650 ml Output Total 795 ml 570 ml Balance -195 ml 1080 ml Intake IV Total 600 ml 1650 ml Output Urine Total 795 ml 570 ml Stool Total 0 ml ET-Tube: 7.5 ET Position: 25 Labs: Laboratory Tests Test 03/10/18 09:35 03/11/18 04:15 Troponin I 0.349 ng/mL (0.000-0.056) HIV (1&2) Antibody Rapid Negative (NEGATIVE) NESSA LEVINE M.D. March 11, 2018 08:44
[2018-03-11] MEDS ORDERED: D5NS 1000ml IV ONE (09:15)
[2018-03-11] MEDS ORDERED: Tubing IV Secondary IV ONE (09:15)
[2018-03-11] MEDS: Pantoprazole Inj IVP SCH (09:34)
[2018-03-11] MEDS: Heparin 5000 units/ml inj SUBQ SCH ×2 (09:37→21:00)
[2018-03-11] MEDS: cefTRIAXone 1 GM in D5W 55 ML IVPB SCH (11:00)
--- NOTE | 2018-03-11 11:28 | Infectious Diseases Prog Note ---
Assessment/Plan Assessment/Plan A; Sepsis/SIRS ? pneumonia Acute renal failure improving Polysubstance abuse( PCP, opioids) Shocked liver Schizophrenia P; Continue Rocephin Will f/u CBC Subjective ROS Limited/Unobtainable: Yes Respiratory: Reports: dry cough Neurologic: Reports: confusion, other - on restraint, more resposive Musculoskeletal: Reports: pain, other - in legs Allergies: Coded Allergies: No Known Allergies (Unverified , 03/08/18) Objective Vital Signs Last 24 Hour Vital Signs Date Time Temp Pulse Resp B/P (MAP) Pulse Ox O2 Delivery O2 Flow Rate FiO2 03/11/18 10:00 83 18 134/62 96 Room Air 03/11/18 09:00 88 17 121/65 95 Room Air 03/11/18 08:00 82 03/11/18 08:00 98.4 80 18 119/72 97 Room Air 98.4 03/11/18 07:00 88 18 131/61 93 Room Air 03/11/18 06:00 80 18 124/71 93 Room Air 03/11/18 05:00 81 18 125/71 93 Room Air 03/11/18 04:00 77 03/11/18 04:00 98.4 77 18 110/69 93 Room Air 98.4 03/11/18 03:00 96 18 125/82 98 Room Air 03/11/18 02:00 76 20 129/87 100 Room Air 03/11/18 01:00 78 20 130/82 100 Room Air 03/11/18 00:00 98.0 86 20 126/83 99 Room Air 98.0 03/11/18 00:00 91 03/10/18 23:00 86 20 123/79 99 Room Air 03/10/18 22:45 135/81 03/10/18 22:30 135/81 03/10/18 22:00 85 19 130/80 100 Nasal Cannula 2.0 03/10/18 21:00 80 19 151/81 100 Nasal Cannula 2.0 03/10/18 20:00 85 03/10/18 20:00 98.2 85 19 140/81 100 Nasal Cannula 2.0 98.2 03/10/18 19:40 98 Nasal Cannula 2.0 28 03/10/18 19:40 Nasal Cannula 2.0 28 03/10/18 19:00 92 19 163/89 100 Nasal Cannula 2.0 03/10/18 18:00 88 19 167/79 100 Nasal Cannula 2.0 03/10/18 17:00 83 14 146/86 92 Nasal Cannula 2.0 03/10/18 16:00 2.0 03/10/18 16:00 89 03/10/18 16:00 98.6 84 14 148/89 92 Nasal Cannula 2.0 98.6 03/10/18 15:00 88 16 161/77 94 Nasal Cannula 2.0 03/10/18 14:00 90 14 150/79 92 Nasal Cannula 2.0 03/10/18 13:00 92 15 120/70 92 Nasal Cannula 2.0 03/10/18 12:00 99.0 98 15 138/74 95 Nasal Cannula 2.0 99.0 03/10/18 12:00 99 03/10/18 12:00 2.0 Height (Feet): 5 Height (Inches): 6.00 Weight (Pounds): 189 General Appearance: no acute distress HEENT: mucous membranes moist Respiratory/Chest: lungs clear Cardiovascular: normal rate Abdomen: soft, non tender Genitourinary: other - Rosenberg catheter Extremities: no edema Neurologic/Psychiatric: alert, responsive Microbiology Date/Time Source Procedure Growth Status 03/09/18 21:10 Blood Blood Culture - Preliminary NO GROWTH AFTER 24 HOURS Resulted 03/09/18 21:00 Blood Blood Culture - Preliminary NO GROWTH AFTER 24 HOURS Resulted 03/09/18 11:45 Urine,Clean Catch Urine Culture - Preliminary YEAST Resulted Laboratory Tests Test 03/11/18 04:15 HIV (1&2) Antibody Rapid Negative (NEGATIVE) Current Medications Medications (Trade) Dose Ordered Sig/Melissa Route PRN Reason Start Time Stop Time Status Last Admin Dose Admin Acetaminophen (Tylenol) 650 mg Q4H PRN ORAL Mild Pain (Pain Scale 1-3) 03/08/18 22:45 04/07/18 22:44 Ceftriaxone Sodium 1 gm/ Dextrose 55 ml @ 110 mls/hr Q24H IVPB 03/09/18 11:00 03/16/18 10:59 03/10/18 11:07 Chlorhexidine Gluconate (Mima-Hex 2%) 1 applic DAILY@2000 TOPIC 03/09/18 20:00 04/08/18 19:59 03/10/18 20:10 Dextrose (Dextrose 50%) 25 ml STAT PRN IV Hypoglycemia 03/08/18 22:45 04/07/18 22:44 Dextrose (Dextrose 50%) 50 ml STAT PRN IV Hypoglycemia 03/08/18 22:45 04/07/18 22:44 Dopamine HCl/ Dextrose 250 ml @ 0 mls/hr Q24H IV 03/08/18 22:30 04/07/18 22:29 03/08/18 23:03 Haloperidol Lactate (Haldol) 5 mg Q6H PRN IM Agitation 03/10/18 12:30 04/09/18 12:29 Heparin Sodium (Porcine) (Heparin 5000 units/ml) 5,000 units EVERY 12 HOURS SUBQ 03/09/18 09:00 04/08/18 08:59 03/11/18 09:37 Lorazepam (Ativan 2mg/ml 1ml) 2 mg Q4H PRN IV AGITATION 03/09/18 09:00 03/16/18 08:59 03/11/18 00:58 Lorazepam (Ativan) 0.5 mg Q6H PRN ORAL For Anxiety 03/09/18 08:45 03/16/18 08:44 Norepinephrine Bitartrate 4 mg/ Dextrose 250 ml @ 0 mls/hr Q24H IV 03/08/18 22:45 04/07/18 22:44 Ondansetron HCl (Zofran) 4 mg Q4H PRN IVP Nausea & Vomiting 03/09/18 13:45 04/08/18 13:44 03/10/18 14:04 Pantoprazole (Protonix) 40 mg DAILY IVP 03/09/18 09:00 04/08/18 08:59 03/11/18 09:34 Risperidone (RisperDAL) 1 mg BID ORAL 03/10/18 18:00 04/09/18 17:59 03/11/18 09:34 YVES PEREZ March 11, 2018 11:28
--- NOTE | 2018-03-11 16:40 | General Progress Note ---
Assessment/Plan Problem List: (1) Altered mental state ICD Codes: R41.82 - Altered mental status, unspecified SNOMED: 580071941 (2) LYNNE (acute kidney injury) Assessment & Plan: better ICD Codes: N17.9 - Acute kidney failure, unspecified SNOMED: 03421793 (3) Drug overdose ICD Codes: T50.901A - Poisoning by unspecified drugs, medicaments and biological substances, accidental (unintentional), initial encounter SNOMED: 83032794 (4) Schizophrenia ICD Codes: F20.9 - Schizophrenia, unspecified SNOMED: 29588008 (5) Acute respiratory failure with hypercapnia ICD Codes: J96.02 - Acute respiratory failure with hypercapnia SNOMED: 875442419 (6) Shock liver ICD Codes: K72.00 - Acute and subacute hepatic failure without coma SNOMED: 059303692 Assessment/Plan extubated pstch F/U abxs follow labs Discussed with RN Subjective Allergies: Coded Allergies: No Known Allergies (Unverified , 03/08/18) Subjective extubated Objective Last 24 Hour Vital Signs Date Time Temp Pulse Resp B/P (MAP) Pulse Ox O2 Delivery O2 Flow Rate FiO2 03/11/18 15:00 69 18 131/87 99 Room Air 03/11/18 14:00 72 18 132/90 100 Room Air 03/11/18 13:00 79 16 130/62 96 Room Air 03/11/18 12:00 69 03/11/18 12:00 98.4 80 18 127/70 97 Room Air 98.4 03/11/18 11:00 82 17 132/60 96 Room Air 03/11/18 10:00 83 18 134/62 96 Room Air 03/11/18 09:00 88 17 121/65 95 Room Air 03/11/18 08:00 82 03/11/18 08:00 98.4 80 18 119/72 97 Room Air 98.4 03/11/18 07:00 88 18 131/61 93 Room Air 03/11/18 06:00 80 18 124/71 93 Room Air 03/11/18 05:00 81 18 125/71 93 Room Air 03/11/18 04:00 77 03/11/18 04:00 98.4 77 18 110/69 93 Room Air 98.4 03/11/18 03:00 96 18 125/82 98 Room Air 03/11/18 02:00 76 20 129/87 100 Room Air 03/11/18 01:00 78 20 130/82 100 Room Air 03/11/18 00:00 98.0 86 20 126/83 99 Room Air 98.0 03/11/18 00:00 91 03/10/18 23:00 86 20 123/79 99 Room Air 03/10/18 22:45 135/81 03/10/18 22:30 135/81 03/10/18 22:00 85 19 130/80 100 Nasal Cannula 2.0 03/10/18 21:00 80 19 151/81 100 Nasal Cannula 2.0 03/10/18 20:00 85 03/10/18 20:00 98.2 85 19 140/81 100 Nasal Cannula 2.0 98.2 03/10/18 19:40 98 Nasal Cannula 2.0 28 03/10/18 19:40 Nasal Cannula 2.0 28 03/10/18 19:00 92 19 163/89 100 Nasal Cannula 2.0 03/10/18 18:00 88 19 167/79 100 Nasal Cannula 2.0 03/10/18 17:00 83 14 146/86 92 Nasal Cannula 2.0 Intake and Output 03/10/18 03/11/18 19:00 07:00 Intake Total 600 ml 1650 ml Output Total 795 ml 570 ml Balance -195 ml 1080 ml Intake IV Total 600 ml 1650 ml Output Urine Total 795 ml 570 ml Stool Total 0 ml Laboratory Tests 03/11/18 04:15: HIV (1&2) Antibody Rapid Negative Height (Feet): 5 Height (Inches): 6.00 Weight (Pounds): 189 Cardiovascular: normal rate Respiratory/Chest: rhonchi - bilaterally Edema: no edema noted Generalized TERRI PEREZ March 11, 2018 16:40
[2018-03-11] MEDS: Dyna-Hex 2% Top Sol 2oz TOPIC SCH (19:37)
[2018-03-11] MEDS: DOPamine 400mg/250ml 250 ML IV SCH (22:30)
[2018-03-12] VITALS (12 sets, daily range): BP systolic 100–142; BP diastolic 65–88
[2018-03-12 05:14] LABS: BASOPHILS % (AUTO) 0.9 % (0.0-2.0); EOSINOPHILS % (AUTO) 2.7 % (0.0-3.0); HEMATOCRIT 28.6 % (37.0-47.0); HEMOGLOBIN 9.9 G/DL (12.0-16.0); MEAN CORPUSCULAR VOLUME 86 FL (80-99); NEUTROPHILS % (AUTO) 59.4 % (45.0-75.0); PLATELET COUNT 255 K/UL (150-450); RED CELL DISTRIBUTION WIDTH 13.9 % (11.6-14.8); WHITE BLOOD COUNT 7.9 K/UL (4.8-10.8)
[2018-03-12] MEDS ORDERED: Haloperidol 5mg/ml Inj IM PRN ×2 (08:30)
[2018-03-12] MEDS ORDERED: Heparin 5000 units/ml inj SUBQ SCH ×2 (09:00)
[2018-03-12] MEDS ORDERED: LORazepam 0.5mg tab ORAL PRN ×2 (09:00)
[2018-03-12] MEDS ORDERED: LORazepam Inj 2mg/ml 1ml IV PRN ×2 (09:00)
[2018-03-12] MEDS ORDERED: Pantoprazole Inj IVP SCH (09:00)
[2018-03-12] MEDS ORDERED: Heparin 5000 units/ml inj IV ONE (09:15)
[2018-03-12] MEDS: Pantoprazole Inj IVP SCH (09:19)
[2018-03-12] MEDS ORDERED: Heparin 25,000u/D5W 500ml 500 ML IV SCH ×2 (09:30→17:15)
[2018-03-12 09:53] LABS: BASOPHILS % (AUTO) 0.6 % (0.0-2.0); HEMOGLOBIN 10.1 G/DL (12.0-16.0); LYMPHOCYTES % (AUTO) 26.3 % (20.0-45.0); MEAN CORPUSCULAR VOLUME 87 FL (80-99); MONOCYTES % (AUTO) 9.1 % (1.0-10.0); PLATELET COUNT 256 K/UL (150-450); RED BLOOD COUNT 3.44 M/UL (4.20-5.40); RED CELL DISTRIBUTION WIDTH 14.1 % (11.6-14.8); WHITE BLOOD COUNT 7.6 K/UL (4.8-10.8)
[2018-03-12 10:04] LABS: INR 1.1 (0.9-1.1)
[2018-03-12] MEDS ORDERED: cefTRIAXone 1 GM in D5W 55 ML IVPB SCH (11:00)
--- NOTE | 2018-03-12 11:41 | General Progress Note ---
Assessment/Plan Problem List: (1) Altered mental state ICD Codes: R41.82 - Altered mental status, unspecified SNOMED: 357148464 (2) LYNNE (acute kidney injury) Assessment & Plan: better ICD Codes: N17.9 - Acute kidney failure, unspecified SNOMED: 91127452 (3) Drug overdose ICD Codes: T50.901A - Poisoning by unspecified drugs, medicaments and biological substances, accidental (unintentional), initial encounter SNOMED: 79031663 Qualifiers: Qualified Codes: T50.902A - Poisoning by unspecified drugs, medicaments and biological substances, intentional self-harm, initial encounter (4) Schizophrenia ICD Codes: F20.9 - Schizophrenia, unspecified SNOMED: 76861067 Qualifiers: Qualified Codes: F20.9 - Schizophrenia, unspecified (5) Acute respiratory failure with hypercapnia ICD Codes: J96.02 - Acute respiratory failure with hypercapnia SNOMED: 449559254 (6) Shock liver ICD Codes: K72.00 - Acute and subacute hepatic failure without coma SNOMED: 069575327 Assessment/Plan swallowing eval discussed with dr shereen decker follow labs Discussed with RN Subjective Allergies: Coded Allergies: No Known Allergies (Unverified , 03/08/18) Subjective feels ok alert and oriented Objective Last 24 Hour Vital Signs Date Time Temp Pulse Resp B/P (MAP) Pulse Ox O2 Delivery O2 Flow Rate FiO2 03/12/18 09:30 54 03/12/18 08:15 97.7 20 122/73 100 Nasal Cannula 2.0 97.7 03/12/18 08:00 56 03/12/18 07:30 Room Air 21 03/12/18 07:30 99 Room Air 21 03/12/18 07:00 58 19 142/80 97 Nasal Cannula 2.0 03/12/18 06:00 61 19 141/85 97 Nasal Cannula 2.0 03/12/18 05:00 87 15 131/81 97 Room Air 03/12/18 04:00 98.5 58 15 122/75 100 Room Air 98.5 03/12/18 04:00 58 03/12/18 03:00 54 15 126/66 100 Room Air 03/12/18 02:00 60 17 100/69 100 Room Air 03/12/18 01:00 65 17 100/69 100 Room Air 03/12/18 00:00 67 03/12/18 00:00 98.5 84 17 130/65 99 Room Air 98.5 03/11/18 23:00 84 17 132/68 99 Room Air 03/11/18 22:45 133/100 03/11/18 22:30 133/100 03/11/18 22:00 60 17 133/70 99 Room Air 03/11/18 21:00 75 17 131/81 99 Room Air 03/11/18 20:00 98.3 77 17 131/84 99 Room Air 98.3 03/11/18 20:00 77 03/11/18 19:30 99 Room Air 21 03/11/18 19:30 Room Air 21 03/11/18 19:00 76 17 127/80 99 Room Air 03/11/18 18:00 71 18 131/82 100 Room Air 03/11/18 17:00 69 18 125/87 99 Room Air 03/11/18 16:00 98.4 82 16 122/72 97 Room Air 98.4 03/11/18 16:00 73 03/11/18 15:00 69 18 131/87 99 Room Air 03/11/18 14:00 72 18 132/90 100 Room Air 03/11/18 13:00 79 16 130/62 96 Room Air 03/11/18 12:00 69 03/11/18 12:00 98.4 80 18 127/70 97 Room Air 98.4 Intake and Output 03/11/18 03/12/18 19:00 07:00 Intake Total 300 ml Output Total 450 ml 435 ml Balance -150 ml -435 ml Intake IV Total 300 ml Output Urine Total 450 ml 435 ml Stool Total 0 ml Laboratory Tests 03/12/18 04:15: White Blood Count 7.9, Red Blood Count 3.30L, Hemoglobin 9.9L, Hematocrit 28.6L , Mean Corpuscular Volume 86, Mean Corpuscular Hemoglobin 30.0, Mean Corpuscular Hemoglobin Concent 34.7, Red Cell Distribution Width 13.9, Platelet Count 255, Mean Platelet Volume 6.3L, Neutrophils (%) (Auto) 59.4, Lymphocytes ( %) (Auto) 29.0, Monocytes (%) (Auto) 8.0, Eosinophils (%) (Auto) 2.7, Basophils (%) (Auto) 0.9 03/12/18 09:35: White Blood Count 7.6, Red Blood Count 3.44L, Hemoglobin 10.1L, Hematocrit 30.0L , Mean Corpuscular Volume 87, Mean Corpuscular Hemoglobin 29.3, Mean Corpuscular Hemoglobin Concent 33.6, Red Cell Distribution Width 14.1, Platelet Count 256, Mean Platelet Volume 5.8L, Neutrophils (%) (Auto) 62.0, Lymphocytes ( %) (Auto) 26.3, Monocytes (%) (Auto) 9.1, Eosinophils (%) (Auto) 2.0, Basophils (%) (Auto) 0.6, Prothrombin Time 11.2, Prothromb Time International Ratio 1.1, Activated Partial Thromboplast Time 27 Height (Feet): 5 Height (Inches): 6.00 Weight (Pounds): 190 Cardiovascular: normal rate Respiratory/Chest: lungs clear Edema: no edema noted Generalized TERRI PEREZ March 12, 2018 11:41
[2018-03-12] MEDS ORDERED: LORazepam 1mg tab ORAL PRN (12:00)
[2018-03-12] MEDS: cefTRIAXone 1 GM in D5W 55 ML IVPB SCH (12:00)
--- NOTE | 2018-03-12 12:08 | General Progress Note ---
Assessment/Plan Status: stable Assessment/Plan the pt is less confused and delirious. the pt has episodes of agitation however calmer. prolexin dec haldol Im zyprexa 10mg qhs prozac 20mg qam the pt will reassessed for danger to self after medically cleared the pt may not leave AMA script is in chart Subjective Date patient seen: March 12, 2018 Neurologic/Psychiatric: Reports: anxiety, depressed, emotional problems Allergies: Coded Allergies: No Known Allergies (Unverified , 03/08/18) Subjective the pt is depressed and withdrawn the pt has not been interacting much and stated that she does not have a job. Objective Last 24 Hour Vital Signs Date Time Temp Pulse Resp B/P (MAP) Pulse Ox O2 Delivery O2 Flow Rate FiO2 03/12/18 09:30 54 03/12/18 08:15 97.7 20 122/73 100 Nasal Cannula 2.0 97.7 03/12/18 08:00 56 03/12/18 07:30 Room Air 21 03/12/18 07:30 99 Room Air 21 03/12/18 07:00 58 19 142/80 97 Nasal Cannula 2.0 03/12/18 06:00 61 19 141/85 97 Nasal Cannula 2.0 03/12/18 05:00 87 15 131/81 97 Room Air 03/12/18 04:00 98.5 58 15 122/75 100 Room Air 98.5 03/12/18 04:00 58 03/12/18 03:00 54 15 126/66 100 Room Air 03/12/18 02:00 60 17 100/69 100 Room Air 03/12/18 01:00 65 17 100/69 100 Room Air 03/12/18 00:00 67 03/12/18 00:00 98.5 84 17 130/65 99 Room Air 98.5 03/11/18 23:00 84 17 132/68 99 Room Air 03/11/18 22:45 133/100 03/11/18 22:30 133/100 03/11/18 22:00 60 17 133/70 99 Room Air 03/11/18 21:00 75 17 131/81 99 Room Air 03/11/18 20:00 98.3 77 17 131/84 99 Room Air 98.3 03/11/18 20:00 77 03/11/18 19:30 99 Room Air 21 03/11/18 19:30 Room Air 21 03/11/18 19:00 76 17 127/80 99 Room Air 03/11/18 18:00 71 18 131/82 100 Room Air 03/11/18 17:00 69 18 125/87 99 Room Air 03/11/18 16:00 98.4 82 16 122/72 97 Room Air 98.4 03/11/18 16:00 73 03/11/18 15:00 69 18 131/87 99 Room Air 03/11/18 14:00 72 18 132/90 100 Room Air 03/11/18 13:00 79 16 130/62 96 Room Air Intake and Output 03/11/18 03/12/18 19:00 07:00 Intake Total 300 ml Output Total 450 ml 435 ml Balance -150 ml -435 ml Intake IV Total 300 ml Output Urine Total 450 ml 435 ml Stool Total 0 ml Laboratory Tests 03/12/18 04:15: White Blood Count 7.9, Red Blood Count 3.30L, Hemoglobin 9.9L, Hematocrit 28.6L , Mean Corpuscular Volume 86, Mean Corpuscular Hemoglobin 30.0, Mean Corpuscular Hemoglobin Concent 34.7, Red Cell Distribution Width 13.9, Platelet Count 255, Mean Platelet Volume 6.3L, Neutrophils (%) (Auto) 59.4, Lymphocytes ( %) (Auto) 29.0, Monocytes (%) (Auto) 8.0, Eosinophils (%) (Auto) 2.7, Basophils (%) (Auto) 0.9 03/12/18 09:35: White Blood Count 7.6, Red Blood Count 3.44L, Hemoglobin 10.1L, Hematocrit 30.0L , Mean Corpuscular Volume 87, Mean Corpuscular Hemoglobin 29.3, Mean Corpuscular Hemoglobin Concent 33.6, Red Cell Distribution Width 14.1, Platelet Count 256, Mean Platelet Volume 5.8L, Neutrophils (%) (Auto) 62.0, Lymphocytes ( %) (Auto) 26.3, Monocytes (%) (Auto) 9.1, Eosinophils (%) (Auto) 2.0, Basophils (%) (Auto) 0.6, Prothrombin Time 11.2, Prothromb Time International Ratio 1.1, Activated Partial Thromboplast Time 27 Height (Feet): 5 Height (Inches): 6.00 Weight (Pounds): 190 General Appearance: WD/WN, no apparent distress, alert Neurologic: oriented x 3, responsive, depressed affect Steven Bhatt M.D. March 12, 2018 12:08
--- NOTE | 2018-03-12 12:44 | Infectious Diseases Prog Note ---
Assessment/Plan Assessment/Plan A; Sepsis/SIRS ? pneumonia Acute renal failure improving Polysubstance abuse( PCP, opioids) Shocked liver Schizophrenia P; Continue Rocephin until tomorrow Subjective ROS Limited/Unobtainable: No Constitutional: Reports: no symptoms Respiratory: Reports: dry cough Cardiovascular: Reports: no symptoms Gastrointestinal/Abdominal: Reports: no symptoms Genitourinary: Reports: no symptoms Musculoskeletal: Reports: pain Allergies: Coded Allergies: No Known Allergies (Unverified , 03/08/18) Objective Vital Signs Last 24 Hour Vital Signs Date Time Temp Pulse Resp B/P (MAP) Pulse Ox O2 Delivery O2 Flow Rate FiO2 03/12/18 09:30 54 03/12/18 08:15 97.7 20 122/73 100 Nasal Cannula 2.0 97.7 03/12/18 08:00 56 03/12/18 07:30 Room Air 21 03/12/18 07:30 99 Room Air 21 03/12/18 07:00 58 19 142/80 97 Nasal Cannula 2.0 03/12/18 06:00 61 19 141/85 97 Nasal Cannula 2.0 03/12/18 05:00 87 15 131/81 97 Room Air 03/12/18 04:00 98.5 58 15 122/75 100 Room Air 98.5 03/12/18 04:00 58 03/12/18 03:00 54 15 126/66 100 Room Air 03/12/18 02:00 60 17 100/69 100 Room Air 03/12/18 01:00 65 17 100/69 100 Room Air 03/12/18 00:00 67 03/12/18 00:00 98.5 84 17 130/65 99 Room Air 98.5 03/11/18 23:00 84 17 132/68 99 Room Air 03/11/18 22:45 133/100 03/11/18 22:30 133/100 03/11/18 22:00 60 17 133/70 99 Room Air 03/11/18 21:00 75 17 131/81 99 Room Air 03/11/18 20:00 98.3 77 17 131/84 99 Room Air 98.3 03/11/18 20:00 77 03/11/18 19:30 99 Room Air 21 03/11/18 19:30 Room Air 21 03/11/18 19:00 76 17 127/80 99 Room Air 5/1/18 18:00 71 18 131/82 100 Room Air 03/11/18 17:00 69 18 125/87 99 Room Air 03/11/18 16:00 98.4 82 16 122/72 97 Room Air 98.4 03/11/18 16:00 73 03/11/18 15:00 69 18 131/87 99 Room Air 03/11/18 14:00 72 18 132/90 100 Room Air 03/11/18 13:00 79 16 130/62 96 Room Air Height (Feet): 5 Height (Inches): 6.00 Weight (Pounds): 190 General Appearance: no acute distress HEENT: mucous membranes moist Respiratory/Chest: normal breath sounds Cardiovascular: normal rate Abdomen: soft, non tender Extremities: no edema Neurologic/Psychiatric: alert, oriented x 3, responsive Microbiology Date/Time Source Procedure Growth Status 03/09/18 21:10 Blood Blood Culture - Preliminary NO GROWTH AFTER 48 HOURS Resulted 03/09/18 21:00 Blood Blood Culture - Preliminary NO GROWTH AFTER 48 HOURS Resulted Laboratory Tests Test 03/12/18 04:15 03/12/18 09:35 White Blood Count 7.9 K/UL (4.8-10.8) 7.6 K/UL (4.8-10.8) Red Blood Count 3.30 M/UL (4.20-5.40) L 3.44 M/UL (4.20-5.40) L Hemoglobin 9.9 G/DL (12.0-16.0) L 10.1 G/DL (12.0-16.0) L Hematocrit 28.6 % (37.0-47.0) L 30.0 % (37.0-47.0) L Mean Corpuscular Volume 86 FL (80-99) 87 FL (80-99) Mean Corpuscular Hemoglobin 30.0 PG (27.0-31.0) 29.3 PG (27.0-31.0) Mean Corpuscular Hemoglobin Concent 34.7 G/DL (32.0-36.0) 33.6 G/DL (32.0-36.0) Red Cell Distribution Width 13.9 % (11.6-14.8) 14.1 % (11.6-14.8) Platelet Count 255 K/UL (150-450) 256 K/UL (150-450) Mean Platelet Volume 6.3 FL (6.5-10.1) L 5.8 FL (6.5-10.1) L Neutrophils (%) (Auto) 59.4 % (45.0-75.0) 62.0 % (45.0-75.0) Lymphocytes (%) (Auto) 29.0 % (20.0-45.0) 26.3 % (20.0-45.0) Monocytes (%) (Auto) 8.0 % (1.0-10.0) 9.1 % (1.0-10.0) Eosinophils (%) (Auto) 2.7 % (0.0-3.0) 2.0 % (0.0-3.0) Basophils (%) (Auto) 0.9 % (0.0-2.0) 0.6 % (0.0-2.0) Prothrombin Time 11.2 SEC (9.30-11.50) Prothromb Time International Ratio 1.1 (0.9-1.1) Activated Partial Thromboplast Time 27 SEC (23-33) Current Medications Medications (Trade) Dose Ordered Sig/Melissa Route PRN Reason Start Time Stop Time Status Last Admin Dose Admin Acetaminophen (Tylenol) 650 mg Q4H PRN ORAL Mild Pain (Pain Scale 1-3) 03/12/18 08:30 04/07/18 08:29 Ceftriaxone Sodium 1 gm/ Dextrose 55 ml @ 110 mls/hr Q24H IVPB 03/12/18 11:00 03/16/18 10:59 03/12/18 12:00 Dextrose (Dextrose 50%) 25 ml STAT PRN IV Hypoglycemia 03/12/18 08:30 04/07/18 08:29 Dextrose (Dextrose 50%) 50 ml STAT PRN IV Hypoglycemia 03/12/18 08:30 04/07/18 08:29 Fluoxetine HCl (PROzac) 20 mg DAILY ORAL 03/12/18 11:45 04/11/18 11:44 03/12/18 12:00 Haloperidol Lactate (Haldol) 5 mg Q6H PRN IM Agitation 03/12/18 08:30 04/09/18 08:29 Heparin Sodium/ Dextrose 500 ml @ 31.034 mls/ hr adjust per protocol IV 03/12/18 09:30 04/11/18 09:29 03/12/18 10:08 Lorazepam (Ativan 2mg/ml 1ml) 2 mg Q4H PRN IV AGITATION 03/12/18 09:00 03/16/18 08:59 Lorazepam (Ativan) 1 mg Q6H PRN ORAL For Anxiety 03/12/18 12:00 03/19/18 11:59 Olanzapine (ZyPREXA) 10 mg BEDTIME ORAL 03/12/18 21:00 04/11/18 20:59 Ondansetron HCl (Zofran) 4 mg Q4H PRN IVP Nausea & Vomiting 03/12/18 08:30 04/08/18 08:29 Pantoprazole (Protonix) 40 mg DAILY IVP 03/12/18 09:00 04/08/18 08:59 03/12/18 09:19 YVES PEREZ March 12, 2018 12:44
[2018-03-12] MEDS ORDERED: Heparin 5000 units/ml inj IV SCH (17:15)
--- NOTE | 2018-03-12 18:33 | Pulmonology Progress Note ---
Assessment/Plan Problems: (1) DVT of upper extremity (deep vein thrombosis) (2) Altered mental state (3) Shock Assessment & Plan: RESOLVED - HEMODYNAMICALLY STABLE (4) LYNNE (acute kidney injury) Assessment & Plan: RESOLVED (5) Drug overdose, multiple drugs (6) PCP intoxication (7) Tylenol overdose (8) Opiate misuse (9) Acute respiratory failure requiring reintubation Assessment & Plan: NOW EXTUABTED and on floor, WITH STABLE O2 NEEDS (10) Shock liver (11) Schizophrenia Assessment/Plan -Would consider discontinuing IV heparin for UE DVT and switching to Hep SQ TID -Elevate UE, compress -Optimize pulmonary hygiene/mobilize as tolerated -PRN O2 -CTx one additional day per ID -F/U psych recs, ? sitter -Diet per [employer] with STRICT aspiration precautions -DVT Px: [facility] Subjective Allergies: Coded Allergies: No Known Allergies (Unverified , 03/08/18) Subjective AFVSS, transferred to floor, O2 needs stable Less confused, depressed, denies SI/HI/AVH Started on [facility] for UE thrombus, + hematuria, no F/C, huey PO Objective Last 24 Hour Vital Signs Date Time Temp Pulse Resp B/P (MAP) Pulse Ox O2 Delivery O2 Flow Rate FiO2 03/12/18 16:00 61 03/12/18 16:00 97.9 71 18 116/81 100 Nasal Cannula 2.0 97.9 03/12/18 12:00 65 03/12/18 12:00 98.7 60 20 129/88 100 Nasal Cannula 2.0 98.7 03/12/18 09:30 54 03/12/18 08:15 97.7 20 122/73 100 Nasal Cannula 2.0 97.7 03/12/18 08:00 56 03/12/18 07:30 Room Air 21 03/12/18 07:30 99 Room Air 21 03/12/18 07:00 58 19 142/80 97 Nasal Cannula 2.0 03/12/18 06:00 61 19 141/85 97 Nasal Cannula 2.0 03/12/18 05:00 87 15 131/81 97 Room Air 03/12/18 04:00 98.5 58 15 122/75 100 Room Air 98.5 03/12/18 04:00 58 03/12/18 03:00 54 15 126/66 100 Room Air 03/12/18 02:00 60 17 100/69 100 Room Air 03/12/18 01:00 65 17 100/69 100 Room Air 03/12/18 00:00 67 03/12/18 00:00 98.5 84 17 130/65 99 Room Air 98.5 03/11/18 23:00 84 17 132/68 99 Room Air 03/11/18 22:45 133/100 03/11/18 22:30 133/100 03/11/18 22:00 60 17 133/70 99 Room Air 03/11/18 21:00 75 17 131/81 99 Room Air 03/11/18 20:00 98.3 77 17 131/84 99 Room Air 98.3 03/11/18 20:00 77 03/11/18 19:30 99 Room Air 21 03/11/18 19:30 Room Air 21 03/11/18 19:00 76 17 127/80 99 Room Air Intake and Output 03/11/18 03/12/18 19:00 07:00 Intake Total 300 ml Output Total 450 ml 435 ml Balance -150 ml -435 ml IV Total 300 ml Output Urine Total 450 ml 435 ml Stool Total 0 ml General Appearance: WD/WN, no acute distress HEENT: normocephalic, atraumatic, anicteric, mucous membranes moist Respiratory/Chest: chest wall non-tender, lungs clear, normal breath sounds Cardiovascular: normal peripheral pulses, normal rate, regular rhythm Abdomen: normal bowel sounds, soft, non tender, no organomegaly, non distended , no mass Extremities: no cyanosis, no clubbing, no edema Microbiology Date/Time Source Procedure Growth Status 03/09/18 21:10 Blood Blood Culture - Preliminary NO GROWTH AFTER 48 HOURS Resulted 03/09/18 21:00 Blood Blood Culture - Preliminary NO GROWTH AFTER 48 HOURS Resulted Laboratory Tests 03/12/18 04:15: White Blood Count 7.9, Red Blood Count 3.30L, Hemoglobin 9.9L, Hematocrit 28.6L , Mean Corpuscular Volume 86, Mean Corpuscular Hemoglobin 30.0, Mean Corpuscular Hemoglobin Concent 34.7, Red Cell Distribution Width 13.9, Platelet Count 255, Mean Platelet Volume 6.3L, Neutrophils (%) (Auto) 59.4, Lymphocytes ( %) (Auto) 29.0, Monocytes (%) (Auto) 8.0, Eosinophils (%) (Auto) 2.7, Basophils (%) (Auto) 0.9 03/12/18 09:35: White Blood Count 7.6, Red Blood Count 3.44L, Hemoglobin 10.1L, Hematocrit 30.0L , Mean Corpuscular Volume 87, Mean Corpuscular Hemoglobin 29.3, Mean Corpuscular Hemoglobin Concent 33.6, Red Cell Distribution Width 14.1, Platelet Count 256, Mean Platelet Volume 5.8L, Neutrophils (%) (Auto) 62.0, Lymphocytes ( %) (Auto) 26.3, Monocytes (%) (Auto) 9.1, Eosinophils (%) (Auto) 2.0, Basophils (%) (Auto) 0.6, Prothrombin Time 11.2, Prothromb Time International Ratio 1.1, Activated Partial Thromboplast Time 27 03/12/18 16:08: Activated Partial Thromboplast Time 36H Current Medications Medications (Trade) Dose Ordered Sig/Melissa Route PRN Reason Start Time Stop Time Status Last Admin Dose Admin Acetaminophen (Tylenol) 650 mg Q4H PRN ORAL Mild Pain (Pain Scale 1-3) 03/12/18 08:30 04/07/18 08:29 Ceftriaxone Sodium 1 gm/ Dextrose 55 ml @ 110 mls/hr Q24H IVPB 03/12/18 11:00 03/16/18 10:59 03/12/18 12:00 Dextrose (Dextrose 50%) 25 ml STAT PRN IV Hypoglycemia 03/12/18 08:30 04/07/18 08:29 Dextrose (Dextrose 50%) 50 ml STAT PRN IV Hypoglycemia 03/12/18 08:30 04/07/18 08:29 Fluoxetine HCl (PROzac) 20 mg DAILY ORAL 03/12/18 11:45 04/11/18 11:44 03/12/18 12:00 Haloperidol Lactate (Haldol) 5 mg Q6H PRN IM Agitation 03/12/18 08:30 04/09/18 08:29 Heparin Sodium/ Dextrose 500 ml @ 37.93 mls/ hr adjust per protocol IV 03/12/18 17:15 04/11/18 17:14 03/12/18 17:17 Lorazepam (Ativan 2mg/ml 1ml) 2 mg Q4H PRN IV AGITATION 03/12/18 09:00 03/16/18 08:59 Lorazepam (Ativan) 1 mg Q6H PRN ORAL For Anxiety 03/12/18 12:00 03/19/18 11:59 Olanzapine (ZyPREXA) 10 mg BEDTIME ORAL 03/12/18 21:00 04/11/18 20:59 Ondansetron HCl (Zofran) 4 mg Q4H PRN IVP Nausea & Vomiting 03/12/18 08:30 04/08/18 08:29 Pantoprazole (Protonix) 40 mg DAILY IVP 03/12/18 09:00 04/08/18 08:59 03/12/18 09:19 NESSA LEVINE M.D. March 12, 2018 18:33
[2018-03-12] MEDS ORDERED: Dyna-Hex 2% Top Sol 2oz TOPIC SCH ×2 (20:00)
[2018-03-12] MEDS: OLANZapine 10mg tab ORAL SCH (20:43)
[2018-03-12] MEDS: Albuterol/Ipratropium 3ml neb HHN PRN (21:54)
[2018-03-12] MEDS ORDERED: DOPamine 400mg/250ml 250 ML IV SCH (22:30)
[2018-03-13] VITALS (7 sets, daily range): BP systolic 110–142; BP diastolic 71–98
[2018-03-13] MEDS ORDERED: Heparin 25,000u/D5W 500ml 500 ML IV SCH (02:20)
[2018-03-13] MEDS: Pantoprazole Inj IVP SCH (08:51)
[2018-03-13 09:09] LABS: BASOPHILS % (AUTO) 0.7 % (0.0-2.0); EOSINOPHILS % (AUTO) 1.9 % (0.0-3.0); HEMATOCRIT 30.5 % (37.0-47.0); HEMOGLOBIN 10.5 G/DL (12.0-16.0); LYMPHOCYTES % (AUTO) 35.4 % (20.0-45.0); MEAN CORPUSCULAR VOLUME 86 FL (80-99); MONOCYTES % (AUTO) 9.5 % (1.0-10.0); NEUTROPHILS % (AUTO) 52.6 % (45.0-75.0); PLATELET COUNT 270 K/UL (150-450); RED BLOOD COUNT 3.56 M/UL (4.20-5.40); RED CELL DISTRIBUTION WIDTH 13.5 % (11.6-14.8); WHITE BLOOD COUNT 6.9 K/UL (4.8-10.8)
[2018-03-13 09:35] LABS: ANION GAP 7 mmol/L (5-15); BLOOD UREA NITROGEN 7 mg/dL (7-18); CALCIUM 8.1 MG/DL (8.5-10.1); CARBON DIOXIDE 26 MMOL/L (21-32); CHLORIDE 108 MMOL/L (98-107); CREATININE 0.6 MG/DL (0.55-1.30); POTASSIUM 3.2 MMOL/L (3.5-5.1); SODIUM 141 MMOL/L (136-145)
[2018-03-13] MEDS ORDERED: Tubing IV Secondary IV ONE (10:06)
[2018-03-13] MEDS ORDERED: D5NS 1000ml IV ONE (10:06)
[2018-03-13] MEDS ORDERED: NS 275ml ONE (10:15)
[2018-03-13] MEDS: cefTRIAXone 1 GM in D5W 55 ML IVPB SCH (10:28)
--- NOTE | 2018-03-13 12:02 | Infectious Diseases Prog Note ---
Assessment/Plan Assessment/Plan A; Sepsis/SIRS ? pneumonia Acute renal failure improving Polysubstance abuse( PCP, opioids) Shocked liver Schizophrenia P; discontinue Rocephin Subjective ROS Limited/Unobtainable: No Constitutional: Reports: no symptoms Respiratory: Reports: dry cough Cardiovascular: Reports: no symptoms Gastrointestinal/Abdominal: Reports: no symptoms Allergies: Coded Allergies: No Known Allergies (Unverified , 03/08/18) Objective Vital Signs Last 24 Hour Vital Signs Date Time Temp Pulse Resp B/P (MAP) Pulse Ox O2 Delivery O2 Flow Rate FiO2 03/13/18 08:00 55 03/13/18 08:00 98.9 58 20 137/71 97 Room Air 98.9 03/13/18 04:00 97.4 70 20 125/80 98 Room Air 97.4 03/13/18 04:00 57 03/13/18 00:00 97.3 69 20 132/83 96 Room Air 97.3 03/13/18 00:00 67 03/12/18 21:57 69 19 98 Room Air 21 03/12/18 21:47 67 19 Room Air 21 03/12/18 21:47 67 19 97 Room Air 21 03/12/18 21:30 97 21 03/12/18 21:30 Room Air 21 03/12/18 20:00 98.2 68 20 126/68 100 Room Air 98.2 03/12/18 20:00 70 03/12/18 16:00 61 03/12/18 16:00 97.9 71 18 116/81 100 Nasal Cannula 2.0 97.9 Height (Feet): 5 Height (Inches): 6.00 Weight (Pounds): 195 General Appearance: no acute distress HEENT: mucous membranes moist Respiratory/Chest: lungs clear Cardiovascular: normal rate Abdomen: soft, non tender Extremities: no edema Neurologic/Psychiatric: alert, responsive Laboratory Tests Test 03/12/18 16:08 03/13/18 00:50 03/13/18 08:50 Activated Partial Thromboplast Time 36 SEC (23-33) H 116 SEC (23-33) H 46 SEC (23-33) H White Blood Count 6.9 K/UL (4.8-10.8) Red Blood Count 3.56 M/UL (4.20-5.40) L Hemoglobin 10.5 G/DL (12.0-16.0) L Hematocrit 30.5 % (37.0-47.0) L Mean Corpuscular Volume 86 FL (80-99) Mean Corpuscular Hemoglobin 29.6 PG (27.0-31.0) Mean Corpuscular Hemoglobin Concent 34.6 G/DL (32.0-36.0) Red Cell Distribution Width 13.5 % (11.6-14.8) Platelet Count 270 K/UL (150-450) Mean Platelet Volume 6.4 FL (6.5-10.1) L Neutrophils (%) (Auto) 52.6 % (45.0-75.0) Lymphocytes (%) (Auto) 35.4 % (20.0-45.0) Monocytes (%) (Auto) 9.5 % (1.0-10.0) Eosinophils (%) (Auto) 1.9 % (0.0-3.0) Basophils (%) (Auto) 0.7 % (0.0-2.0) Sodium Level 141 MMOL/L (136-145) Potassium Level 3.2 MMOL/L (3.5-5.1) L Chloride Level 108 MMOL/L (98-107) H Carbon Dioxide Level 26 MMOL/L (21-32) Anion Gap 7 mmol/L (5-15) Blood Urea Nitrogen 7 mg/dL (7-18) Creatinine 0.6 MG/DL (0.55-1.30) Estimat Glomerular Filtration Rate > 60 mL/min (>60) Glucose Level 103 MG/DL (74-106) Calcium Level 8.1 MG/DL (8.5-10.1) L Current Medications Medications (Trade) Dose Ordered Sig/Melissa Route PRN Reason Start Time Stop Time Status Last Admin Dose Admin Acetaminophen (Tylenol) 650 mg Q4H PRN ORAL Mild Pain (Pain Scale 1-3) 03/12/18 08:30 04/07/18 08:29 03/12/18 18:58 Albuterol/ Ipratropium (Albuterol/ Ipratropium) 3 ml Q6HR PRN HHN Shortness of Breath 03/12/18 21:00 03/17/18 20:59 03/12/18 21:54 Ceftriaxone Sodium 1 gm/ Dextrose 55 ml @ 110 mls/hr Q24H IVPB 03/12/18 11:00 03/16/18 10:59 03/13/18 10:28 Dextrose (Dextrose 50%) 25 ml STAT PRN IV Hypoglycemia 03/12/18 08:30 04/07/18 08:29 Dextrose (Dextrose 50%) 50 ml STAT PRN IV Hypoglycemia 03/12/18 08:30 04/07/18 08:29 Fluoxetine HCl (PROzac) 20 mg DAILY ORAL 03/12/18 11:45 04/11/18 11:44 03/13/18 08:51 Haloperidol Lactate (Haldol) 5 mg Q6H PRN IM Agitation 03/12/18 08:30 04/09/18 08:29 Lorazepam (Ativan 2mg/ml 1ml) 2 mg Q4H PRN IV AGITATION 03/12/18 09:00 03/16/18 08:59 Lorazepam (Ativan) 1 mg Q6H PRN ORAL For Anxiety 03/12/18 12:00 03/19/18 11:59 Olanzapine (ZyPREXA) 10 mg BEDTIME ORAL 03/12/18 21:00 04/11/18 20:59 Ondansetron HCl (Zofran) 4 mg Q4H PRN IVP Nausea & Vomiting 03/12/18 08:30 04/08/18 08:29 03/13/18 06:59 Pantoprazole (Protonix) 40 mg DAILY IVP 03/12/18 09:00 04/08/18 08:59 03/13/18 08:51 YVES PEREZ March 13, 2018 12:02
--- NOTE | 2018-03-13 12:11 | General Progress Note ---
Assessment/Plan Status: stable, progressing Assessment/Plan the pt is less confused and delirious. the pt has episodes of agitation however calmer. Prolixin dec Haldol Im Zyprexa 10mg qhs Prozac 20mg qam the pt will reassessed for danger to self after medically cleared the pt may not leave AMA script is in chart Subjective Date patient seen: March 13, 2018 Neurologic/Psychiatric: Reports: anxiety, emotional problems Allergies: Coded Allergies: No Known Allergies (Unverified , 03/08/18) Subjective the pt is doing better. No behavioral issue, less confused and pleasant. Objective Last 24 Hour Vital Signs Date Time Temp Pulse Resp B/P (MAP) Pulse Ox O2 Delivery O2 Flow Rate FiO2 03/13/18 08:00 55 03/13/18 08:00 98.9 58 20 137/71 97 Room Air 98.9 03/13/18 04:00 97.4 70 20 125/80 98 Room Air 97.4 03/13/18 04:00 57 03/13/18 00:00 97.3 69 20 132/83 96 Room Air 97.3 03/13/18 00:00 67 03/12/18 21:57 69 19 98 Room Air 21 03/12/18 21:47 67 19 Room Air 21 03/12/18 21:47 67 19 97 Room Air 21 03/12/18 21:30 97 21 03/12/18 21:30 Room Air 21 03/12/18 20:00 98.2 68 20 126/68 100 Room Air 98.2 03/12/18 20:00 70 03/12/18 16:00 61 03/12/18 16:00 97.9 71 18 116/81 100 Nasal Cannula 2.0 97.9 Intake and Output 03/12/18 03/13/18 19:00 07:00 Intake Total 1090.168 ml 396.542 ml Balance 1090.168 ml 396.542 ml Intake Oral 780 ml IV Total 310.168 ml 396.542 ml # Voids 5 3 Laboratory Tests 03/12/18 16:08: Activated Partial Thromboplast Time 36H 03/13/18 00:50: Activated Partial Thromboplast Time 116H 03/13/18 08:50: Activated Partial Thromboplast Time 46H, White Blood Count 6.9, Red Blood Count 3.56L, Hemoglobin 10.5L, Hematocrit 30.5L, Mean Corpuscular Volume 86, Mean Corpuscular Hemoglobin 29.6, Mean Corpuscular Hemoglobin Concent 34.6, Red Cell Distribution Width 13.5, Platelet Count 270, Mean Platelet Volume 6.4L, Neutrophils (%) (Auto) 52.6, Lymphocytes (%) (Auto) 35.4, Monocytes (%) (Auto) 9.5, Eosinophils (%) (Auto) 1.9, Basophils (%) (Auto) 0.7, Sodium Level 141, Potassium Level 3.2L, Chloride Level 108H, Carbon Dioxide Level 26, Anion Gap 7 , Blood Urea Nitrogen 7, Creatinine 0.6, Estimat Glomerular Filtration Rate > 60 , Glucose Level 103, Calcium Level 8.1L Height (Feet): 5 Height (Inches): 6.00 Weight (Pounds): 195 General Appearance: WD/WN, no apparent distress, alert Neurologic: oriented x 3, responsive, depressed affect Steven Bhatt M.D. March 13, 2018 12:11
--- NOTE | 2018-03-13 14:00 | General Progress Note ---
Assessment/Plan Problem List: (1) Altered mental state ICD Codes: R41.82 - Altered mental status, unspecified SNOMED: 321072817 (2) LYNNE (acute kidney injury) Assessment & Plan: better ICD Codes: N17.9 - Acute kidney failure, unspecified SNOMED: 30666603 (3) Drug overdose ICD Codes: T50.901A - Poisoning by unspecified drugs, medicaments and biological substances, accidental (unintentional), initial encounter SNOMED: 56061686 Qualifiers: Qualified Codes: T50.902A - Poisoning by unspecified drugs, medicaments and biological substances, intentional self-harm, initial encounter (4) Schizophrenia ICD Codes: F20.9 - Schizophrenia, unspecified SNOMED: 75867376 Qualifiers: Qualified Codes: F20.9 - Schizophrenia, unspecified (5) Acute respiratory failure with hypercapnia ICD Codes: J96.02 - Acute respiratory failure with hypercapnia SNOMED: 579643131 (6) Shock liver ICD Codes: K72.00 - Acute and subacute hepatic failure without coma SNOMED: 672681312 (7) Cephalic vein thrombosis ICD Codes: I82.619 - Acute embolism and thrombosis of superficial veins of unspecified upper extremity SNOMED: 455539627 (8) Hematuria ICD Codes: R31.9 - Hematuria, unspecified SNOMED: 87877575 Assessment/Plan DC heparin discussed with rehabilitation caseworker jeronimo per ID Discussed with RN Subjective Allergies: Coded Allergies: No Known Allergies (Unverified , 03/08/18) Subjective feels ok alert and oriented Objective Last 24 Hour Vital Signs Date Time Temp Pulse Resp B/P (MAP) Pulse Ox O2 Delivery O2 Flow Rate FiO2 03/13/18 12:00 56 03/13/18 12:00 97.3 79 19 118/76 96 Nasal Cannula 2.0 97.3 03/13/18 08:00 55 03/13/18 08:00 98.9 58 20 137/71 97 Room Air 98.9 03/13/18 04:00 97.4 70 20 125/80 98 Room Air 97.4 03/13/18 04:00 57 03/13/18 00:00 97.3 69 20 132/83 96 Room Air 97.3 03/13/18 00:00 67 03/12/18 21:57 69 19 98 Room Air 21 03/12/18 21:47 67 19 Room Air 21 03/12/18 21:47 67 19 97 Room Air 21 03/12/18 21:30 97 21 03/12/18 21:30 Room Air 21 03/12/18 20:00 98.2 68 20 126/68 100 Room Air 98.2 03/12/18 20:00 70 03/12/18 16:00 61 03/12/18 16:00 97.9 71 18 116/81 100 Nasal Cannula 2.0 97.9 Intake and Output 03/12/18 03/13/18 19:00 07:00 Intake Total 1090.168 ml 396.542 ml Balance 1090.168 ml 396.542 ml Intake Oral 780 ml IV Total 310.168 ml 396.542 ml # Voids 5 3 Laboratory Tests 03/12/18 16:08: Activated Partial Thromboplast Time 36H 03/13/18 00:50: Activated Partial Thromboplast Time 116H 03/13/18 08:50: Activated Partial Thromboplast Time 46H, White Blood Count 6.9, Red Blood Count 3.56L, Hemoglobin 10.5L, Hematocrit 30.5L, Mean Corpuscular Volume 86, Mean Corpuscular Hemoglobin 29.6, Mean Corpuscular Hemoglobin Concent 34.6, Red Cell Distribution Width 13.5, Platelet Count 270, Mean Platelet Volume 6.4L, Neutrophils (%) (Auto) 52.6, Lymphocytes (%) (Auto) 35.4, Monocytes (%) (Auto) 9.5, Eosinophils (%) (Auto) 1.9, Basophils (%) (Auto) 0.7, Sodium Level 141, Potassium Level 3.2L, Chloride Level 108H, Carbon Dioxide Level 26, Anion Gap 7 , Blood Urea Nitrogen 7, Creatinine 0.6, Estimat Glomerular Filtration Rate > 60 , Glucose Level 103, Calcium Level 8.1L Height (Feet): 5 Height (Inches): 6.00 Weight (Pounds): 195 Cardiovascular: normal rate Respiratory/Chest: lungs clear Edema: no edema noted TERRI Randall March 13, 2018 14:00
--- NOTE | 2018-03-13 14:04 | Pulmonology Progress Note ---
Assessment/Plan Problems: (1) DVT of upper extremity (deep vein thrombosis) (2) Altered mental state (3) Shock Assessment & Plan: RESOLVED - HEMODYNAMICALLY STABLE (4) LYNNE (acute kidney injury) Assessment & Plan: RESOLVED (5) Drug overdose, multiple drugs (6) PCP intoxication (7) Tylenol overdose (8) Opiate misuse (9) Acute respiratory failure requiring reintubation Assessment & Plan: NOW EXTUABTED and on floor, WITH STABLE O2 NEEDS (10) Shock liver (11) Schizophrenia Assessment/Plan -Elevate UE, compress -Optimize pulmonary hygiene/mobilize as tolerated -PRN O2 -Observe off Abx per ID -F/U psych recs, ? sitter, PET team eval -Diet per WALL CRANE OPERATOR with STRICT aspiration precautions -DVT Px: Hep SQ Subjective Allergies: Coded Allergies: No Known Allergies (Unverified , 03/08/18) Subjective AFVSS, stable on RA Awake and alert, mood better, no SI/HI/AVH No F/C, huey PO Objective Last 24 Hour Vital Signs Date Time Temp Pulse Resp B/P (MAP) Pulse Ox O2 Delivery O2 Flow Rate FiO2 03/13/18 12:00 56 03/13/18 12:00 97.3 79 19 118/76 96 Nasal Cannula 2.0 97.3 03/13/18 08:00 55 03/13/18 08:00 98.9 58 20 137/71 97 Room Air 98.9 03/13/18 04:00 97.4 70 20 125/80 98 Room Air 97.4 03/13/18 04:00 57 03/13/18 00:00 97.3 69 20 132/83 96 Room Air 97.3 03/13/18 00:00 67 03/12/18 21:57 69 19 98 Room Air 21 03/12/18 21:47 67 19 Room Air 21 03/12/18 21:47 67 19 97 Room Air 21 03/12/18 21:30 97 21 03/12/18 21:30 Room Air 21 03/12/18 20:00 98.2 68 20 126/68 100 Room Air 98.2 03/12/18 20:00 70 03/12/18 16:00 61 03/12/18 16:00 97.9 71 18 116/81 100 Nasal Cannula 2.0 97.9 Intake and Output 03/12/18 03/13/18 19:00 07:00 Intake Total 1090.168 ml 396.542 ml Balance 1090.168 ml 396.542 ml Intake Oral 780 ml IV Total 310.168 ml 396.542 ml # Voids 5 3 General Appearance: WD/WN, no acute distress HEENT: normocephalic, atraumatic, anicteric, mucous membranes moist Respiratory/Chest: chest wall non-tender, lungs clear, normal breath sounds, no respiratory distress, no accessory muscle use Cardiovascular: normal peripheral pulses, normal rate, regular rhythm Abdomen: normal bowel sounds, soft, non tender, no organomegaly, non distended , no mass Extremities: no cyanosis, no clubbing, no edema Laboratory Tests 03/12/18 16:08: Activated Partial Thromboplast Time 36H 03/13/18 00:50: Activated Partial Thromboplast Time 116H 03/13/18 08:50: Activated Partial Thromboplast Time 46H, White Blood Count 6.9, Red Blood Count 3.56L, Hemoglobin 10.5L, Hematocrit 30.5L, Mean Corpuscular Volume 86, Mean Corpuscular Hemoglobin 29.6, Mean Corpuscular Hemoglobin Concent 34.6, Red Cell Distribution Width 13.5, Platelet Count 270, Mean Platelet Volume 6.4L, Neutrophils (%) (Auto) 52.6, Lymphocytes (%) (Auto) 35.4, Monocytes (%) (Auto) 9.5, Eosinophils (%) (Auto) 1.9, Basophils (%) (Auto) 0.7, Sodium Level 141, Potassium Level 3.2L, Chloride Level 108H, Carbon Dioxide Level 26, Anion Gap 7 , Blood Urea Nitrogen 7, Creatinine 0.6, Estimat Glomerular Filtration Rate > 60 , Glucose Level 103, Calcium Level 8.1L Current Medications Medications (Trade) Dose Ordered Sig/Melissa Route PRN Reason Start Time Stop Time Status Last Admin Dose Admin Acetaminophen (Tylenol) 650 mg Q4H PRN ORAL Mild Pain (Pain Scale 1-3) 03/12/18 08:30 04/07/18 08:29 03/12/18 18:58 Albuterol/ Ipratropium (Albuterol/ Ipratropium) 3 ml Q6HR PRN HHN Shortness of Breath 03/12/18 21:00 03/17/18 20:59 03/12/18 21:54 Dextrose (Dextrose 50%) 25 ml STAT PRN IV Hypoglycemia 03/12/18 08:30 04/07/18 08:29 Dextrose (Dextrose 50%) 50 ml STAT PRN IV Hypoglycemia 03/12/18 08:30 04/07/18 08:29 Fluoxetine HCl (PROzac) 20 mg DAILY ORAL 03/12/18 11:45 04/11/18 11:44 03/13/18 08:51 Haloperidol Lactate (Haldol) 5 mg Q6H PRN IM Agitation 03/12/18 08:30 04/09/18 08:29 Lorazepam (Ativan 2mg/ml 1ml) 2 mg Q4H PRN IV AGITATION 03/12/18 09:00 03/16/18 08:59 Lorazepam (Ativan) 1 mg Q6H PRN ORAL For Anxiety 03/12/18 12:00 03/19/18 11:59 Olanzapine (ZyPREXA) 10 mg BEDTIME ORAL 03/12/18 21:00 04/11/18 20:59 Ondansetron HCl (Zofran) 4 mg Q4H PRN IVP Nausea & Vomiting 03/12/18 08:30 04/08/18 08:29 03/13/18 06:59 Pantoprazole (Protonix) 40 mg DAILY IVP 03/12/18 09:00 04/08/18 08:59 03/13/18 08:51 NESSA LEVINE M.D. March 13, 2018 14:04
[2018-03-13] MEDS: Albuterol/Ipratropium 3ml neb HHN PRN (19:14)
[2018-03-13] MEDS: Heparin 5000 units/ml inj SUBQ SCH (21:00)
[2018-03-13] MEDS: OLANZapine 10mg tab ORAL SCH (21:00)
[2018-03-14] VITALS: BP 139/87
[2018-03-14] MEDS: Albuterol/Ipratropium 3ml neb HHN PRN ×3 (01:16→22:05)
[2018-03-14 04:00] VITALS: BP 146/88
[2018-03-14 08:00] VITALS: BP 133/92
--- NOTE | 2018-03-14 08:55 | Pulmonology Progress Note ---
Assessment/Plan Problems: (1) DVT of upper extremity (deep vein thrombosis) (2) Altered mental state (3) Shock Assessment & Plan: RESOLVED - HEMODYNAMICALLY STABLE (4) LYNNE (acute kidney injury) Assessment & Plan: RESOLVED (5) Drug overdose, multiple drugs (6) PCP intoxication (7) Tylenol overdose (8) Opiate misuse (9) Acute respiratory failure requiring reintubation Assessment & Plan: NOW EXTUABTED and on floor, WITH STABLE O2 NEEDS (10) Shock liver (11) Schizophrenia Assessment/Plan -Elevate UE, compress -Optimize pulmonary hygiene/mobilize as tolerated -PRN O2 -Observe off Abx per ID -F/U psych recs, transfer to PSYCH facility -Diet per IT SERVICE CONTINUITY SUPERVISOR with STRICT aspiration precautions -DVT Px: Hep SQ -Stable from a pulmonary standpoint, will follow peripherally Subjective Allergies: Coded Allergies: No Known Allergies (Unverified , 03/08/18) Subjective AFVSS, stable on RA Awake and alert, mood better, no SI/HI/AVH Awaiting transfer to inpatient psych No F/C, huey PO Objective Last 24 Hour Vital Signs Date Time Temp Pulse Resp B/P (MAP) Pulse Ox O2 Delivery O2 Flow Rate FiO2 03/14/18 08:37 75 16 100 Room Air 21 03/14/18 08:26 100 Room Air 03/14/18 08:26 21 03/14/18 08:26 Room Air 21 03/14/18 08:26 73 16 98 Room Air 21 03/14/18 08:26 73 16 Room Air 21 03/14/18 04:00 98.2 87 21 146/88 100 Room Air 98.2 03/14/18 04:00 91 03/14/18 01:17 73 16 100 Room Air 21 03/14/18 01:10 75 17 99 Room Air 21 03/14/18 00:00 85 03/14/18 00:00 98.2 68 21 139/87 98 Room Air 98.2 03/13/18 20:00 107 03/13/18 20:00 97.9 88 21 142/91 98 Room Air 97.9 03/13/18 19:12 72 20 100 Room Air 21 03/13/18 19:05 72 20 100 Room Air 21 03/13/18 19:02 71 18 Room Air 21 03/13/18 19:02 Room Air 21 03/13/18 19:02 100 Room Air 21 03/13/18 16:00 97.6 66 20 110/98 99 Room Air 97.6 03/13/18 16:00 58 03/13/18 12:00 56 03/13/18 12:00 97.3 79 19 118/76 96 Nasal Cannula 2.0 97.3 Intake and Output 03/13/18 03/14/18 19:00 07:00 Intake Total 633.274 ml Balance 633.274 ml Intake Oral 480 ml IV Total 153.274 ml # Voids 2 7 # Bowel Movements 3 General Appearance: WD/WN, no acute distress HEENT: normocephalic, atraumatic, anicteric, mucous membranes moist Respiratory/Chest: chest wall non-tender, lungs clear, normal breath sounds, no respiratory distress Cardiovascular: normal peripheral pulses, normal rate, regular rhythm Abdomen: normal bowel sounds, soft, non tender, no organomegaly, non distended , no mass Extremities: no cyanosis, no clubbing, no edema Current Medications Medications (Trade) Dose Ordered Sig/Melissa Route PRN Reason Start Time Stop Time Status Last Admin Dose Admin Acetaminophen (Tylenol) 650 mg Q4H PRN ORAL Mild Pain (Pain Scale 1-3) 03/12/18 08:30 04/07/18 08:29 03/12/18 18:58 Albuterol/ Ipratropium (Albuterol/ Ipratropium) 3 ml Q6HR PRN HHN Shortness of Breath 03/12/18 21:00 03/17/18 20:59 03/14/18 08:29 Dextrose (Dextrose 50%) 25 ml STAT PRN IV Hypoglycemia 03/12/18 08:30 04/07/18 08:29 Dextrose (Dextrose 50%) 50 ml STAT PRN IV Hypoglycemia 03/12/18 08:30 04/07/18 08:29 Fluoxetine HCl (PROzac) 20 mg DAILY ORAL 03/12/18 11:45 04/11/18 11:44 03/13/18 08:51 Haloperidol Lactate (Haldol) 5 mg Q6H PRN IM Agitation 03/12/18 08:30 04/09/18 08:29 Heparin Sodium (Porcine) (Heparin 5000 units/ml) 5,000 units EVERY 12 HOURS SUBQ 03/13/18 21:00 04/12/18 20:59 Lorazepam (Ativan 2mg/ml 1ml) 2 mg Q4H PRN IV AGITATION 03/12/18 09:00 03/16/18 08:59 Lorazepam (Ativan) 1 mg Q6H PRN ORAL For Anxiety 03/12/18 12:00 03/19/18 11:59 Olanzapine (ZyPREXA) 10 mg BEDTIME ORAL 03/12/18 21:00 04/11/18 20:59 Ondansetron HCl (Zofran) 4 mg Q4H PRN IVP Nausea & Vomiting 03/12/18 08:30 04/08/18 08:29 03/13/18 06:59 Pantoprazole (Protonix) 40 mg DAILY IVP 03/12/18 09:00 04/08/18 08:59 03/13/18 08:51 NESSA LEVINE M.D. March 14, 2018 08:55
[2018-03-14] MEDS: Pantoprazole Inj IVP SCH (09:16)
[2018-03-14] MEDS: Heparin 5000 units/ml inj SUBQ SCH ×2 (09:18→20:47)
--- NOTE | 2018-03-14 11:13 | General Progress Note ---
Assessment/Plan Status: stable, progressing Assessment/Plan the pt is less confused and delirious. the pt has episodes of agitation however calmer. Prolixin dec Haldol Im Zyprexa 20mg qhs Prozac 20mg qam the pt will reassessed for danger to self after medically cleared the pt may not leave AMA script is in chart Subjective Date patient seen: March 14, 2018 Neurologic/Psychiatric: Reports: anxiety, depressed, emotional problems Allergies: Coded Allergies: No Known Allergies (Unverified , 03/08/18) Subjective the pt was placed on 5150. the pt will be transferred to [facility]. more alert. Objective Last 24 Hour Vital Signs Date Time Temp Pulse Resp B/P (MAP) Pulse Ox O2 Delivery O2 Flow Rate FiO2 03/14/18 08:37 75 16 100 Room Air 21 03/14/18 08:26 100 Room Air 21 03/14/18 08:26 21 03/14/18 08:26 Room Air 21 03/14/18 08:26 73 16 98 Room Air 21 03/14/18 08:26 73 16 Room Air 21 03/14/18 08:00 98.0 89 18 133/92 98 Room Air 98.0 03/14/18 04:00 98.2 87 21 146/88 100 Room Air 98.2 03/14/18 04:00 91 03/14/18 01:17 73 16 100 Room Air 21 03/14/18 01:10 75 17 99 Room Air 21 03/14/18 00:00 85 03/14/18 00:00 98.2 68 21 139/87 98 Room Air 98.2 03/13/18 20:00 107 03/13/18 20:00 97.9 88 21 142/91 98 Room Air 97.9 03/13/18 19:12 72 20 100 Room Air 21 03/13/18 19:05 72 20 100 Room Air 21 03/13/18 19:02 71 18 Room Air 21 03/13/18 19:02 Room Air 21 03/13/18 19:02 100 Room Air 21 03/13/18 16:00 97.6 66 20 110/98 99 Room Air 97.6 03/13/18 16:00 58 03/13/18 12:00 56 03/13/18 12:00 97.3 79 19 118/76 96 Nasal Cannula 2.0 97.3 Intake and Output 03/13/18 03/14/18 19:00 07:00 Intake Total 633.274 ml Balance 633.274 ml Intake Oral 480 ml IV Total 153.274 ml # Voids 2 7 # Bowel Movements 3 Height (Feet): 5 Height (Inches): 6.00 Weight (Pounds): 195 General Appearance: WD/WN, no apparent distress, alert Neurologic: oriented x 3, responsive, depressed affect Steven Bhatt M.D. March 14, 2018 11:13
[2018-03-14] MEDS ORDERED: ZYPREXA10 MG ORAL ×2 (11:23→11:24)
[2018-03-14] MEDS ORDERED: DUONEB 0.5-3(2.53 ML HHN (11:30)
[2018-03-14] MEDS ORDERED: ATIVAN2 MG/1 ML IV ×2 (11:42→11:44)
[2018-03-14] MEDS ORDERED: PROZAC20 MG ORAL (11:48)
[2018-03-14] MEDS ORDERED: HALDOL5 MG/1 ML IM (11:48)
[2018-03-14] MEDS ORDERED: TYLENOL EXTRA500 MG ORAL (11:48)
[2018-03-14] MEDS ORDERED: ZOFRAN 4 MG4 MG/2 ML IV (11:48)
--- NOTE | 2018-03-14 13:24 | General Progress Note ---
Assessment/Plan Problem List: (1) Altered mental state ICD Codes: R41.82 - Altered mental status, unspecified SNOMED: 120323848 (2) LYNNE (acute kidney injury) Assessment & Plan: better ICD Codes: N17.9 - Acute kidney failure, unspecified SNOMED: 11518449 (3) Drug overdose ICD Codes: T50.901A - Poisoning by unspecified drugs, medicaments and biological substances, accidental (unintentional), initial encounter SNOMED: 95587469 Qualifiers: Qualified Codes: T50.902A - Poisoning by unspecified drugs, medicaments and biological substances, intentional self-harm, initial encounter (4) Schizophrenia ICD Codes: F20.9 - Schizophrenia, unspecified SNOMED: 93560728 Qualifiers: Qualified Codes: F20.9 - Schizophrenia, unspecified (5) Acute respiratory failure with hypercapnia ICD Codes: J96.02 - Acute respiratory failure with hypercapnia SNOMED: 324253204 (6) Shock liver ICD Codes: K72.00 - Acute and subacute hepatic failure without coma SNOMED: 529169068 (7) Cephalic vein thrombosis ICD Codes: I82.619 - Acute embolism and thrombosis of superficial veins of unspecified upper extremity SNOMED: 868329047 (8) Hematuria ICD Codes: R31.9 - Hematuria, unspecified SNOMED: 12600804 Assessment/Plan cont as is plan to DC to psych unit Discussed with RN Subjective Allergies: Coded Allergies: No Known Allergies (Unverified , 03/08/18) Subjective feels ok alert and oriented Objective Last 24 Hour Vital Signs Date Time Temp Pulse Resp B/P (MAP) Pulse Ox O2 Delivery O2 Flow Rate FiO2 03/14/18 08:37 75 16 100 Room Air 21 03/14/18 08:26 100 Room Air 21 03/14/18 08:26 21 03/14/18 08:26 Room Air 21 03/14/18 08:26 73 16 98 Room Air 21 03/14/18 08:26 73 16 Room Air 21 03/14/18 08:00 98.0 89 18 133/92 98 Room Air 98.0 03/14/18 04:00 98.2 87 21 146/88 100 Room Air 98.2 03/14/18 04:00 91 03/14/18 01:17 73 16 100 Room Air 21 03/14/18 01:10 75 17 99 Room Air 21 03/14/18 00:00 85 03/14/18 00:00 98.2 68 21 139/87 98 Room Air 98.2 03/13/18 20:00 107 03/13/18 20:00 97.9 88 21 142/91 98 Room Air 97.9 03/13/18 19:12 72 20 100 Room Air 21 03/13/18 19:05 72 20 100 Room Air 21 03/13/18 19:02 71 18 Room Air 21 03/13/18 19:02 Room Air 21 03/13/18 19:02 100 Room Air 21 03/13/18 16:00 97.6 66 20 110/98 99 Room Air 97.6 03/13/18 16:00 58 Intake and Output 03/13/18 03/14/18 19:00 07:00 Intake Total 633.274 ml Balance 633.274 ml Intake Oral 480 ml IV Total 153.274 ml # Voids 2 7 # Bowel Movements 3 Height (Feet): 5 Height (Inches): 6.00 Weight (Pounds): 195 Cardiovascular: normal rate Respiratory/Chest: lungs clear TERRI PEREZ March 14, 2018 13:24
--- NOTE | 2018-03-14 16:22 | Infectious Diseases Prog Note ---
Assessment/Plan Assessment/Plan A; Sepsis/SIRS ? pneumonia Acute renal failure improving Polysubstance abuse( PCP, opioids) Shocked liver Schizophrenia P; observe off antibiotic Waiting to transfer to psychiatry unit Subjective ROS Limited/Unobtainable: No Respiratory: Reports: productive cough Genitourinary: Reports: no symptoms Musculoskeletal: Reports: pain, other - in hips Allergies: Coded Allergies: No Known Allergies (Unverified , 03/08/18) Objective Vital Signs Last 24 Hour Vital Signs Date Time Temp Pulse Resp B/P (MAP) Pulse Ox O2 Delivery O2 Flow Rate FiO2 03/14/18 12:00 82 03/14/18 08:37 75 16 100 Room Air 03/14/18 08:26 100 Room Air 21 03/14/18 08:26 21 03/14/18 08:26 Room Air 21 03/14/18 08:26 73 16 98 Room Air 21 03/14/18 08:26 73 16 Room Air 21 03/14/18 08:00 106 03/14/18 08:00 98.0 89 18 133/92 98 Room Air 98.0 03/14/18 04:00 98.2 87 21 146/88 100 Room Air 98.2 03/14/18 04:00 91 03/14/18 01:17 73 16 100 Room Air 21 03/14/18 01:10 75 17 99 Room Air 21 03/14/18 00:00 85 03/14/18 00:00 98.2 68 21 139/87 98 Room Air 98.2 03/13/18 20:00 107 03/13/18 20:00 97.9 88 21 142/91 98 Room Air 97.9 03/13/18 19:12 72 20 100 Room Air 21 03/13/18 19:05 72 20 100 Room Air 21 03/13/18 19:02 71 18 Room Air 21 03/13/18 19:02 Room Air 21 03/13/18 19:02 100 Room Air 21 Height (Feet): 5 Height (Inches): 6.00 Weight (Pounds): 195 General Appearance: no acute distress HEENT: mucous membranes moist Respiratory/Chest: lungs clear Cardiovascular: normal rate Abdomen: soft, non tender Extremities: no edema Neurologic/Psychiatric: alert, responsive Laboratory Tests Test 03/14/18 15:30 Potassium Level 3.4 MMOL/L (3.5-5.1) L Current Medications Medications (Trade) Dose Ordered Sig/Melissa Route PRN Reason Start Time Stop Time Status Last Admin Dose Admin Acetaminophen (Tylenol) 650 mg Q4H PRN ORAL Mild Pain (Pain Scale 1-3) 03/12/18 08:30 04/07/18 08:29 03/12/18 18:58 Albuterol/ Ipratropium (Albuterol/ Ipratropium) 3 ml Q6HR PRN HHN Shortness of Breath 03/12/18 21:00 03/17/18 20:59 03/14/18 08:29 Dextrose (Dextrose 50%) 25 ml STAT PRN IV Hypoglycemia 03/12/18 08:30 04/07/18 08:29 Dextrose (Dextrose 50%) 50 ml STAT PRN IV Hypoglycemia 03/12/18 08:30 04/07/18 08:29 Fluoxetine HCl (PROzac) 20 mg DAILY ORAL 03/12/18 11:45 04/11/18 11:44 03/14/18 09:16 Haloperidol Lactate (Haldol) 5 mg Q6H PRN IM Agitation 03/12/18 08:30 04/09/18 08:29 Heparin Sodium (Porcine) (Heparin 5000 units/ml) 5,000 units EVERY 12 HOURS SUBQ 03/13/18 21:00 04/12/18 20:59 03/14/18 09:18 Lorazepam (Ativan 2mg/ml 1ml) 2 mg Q4H PRN IV AGITATION 03/12/18 09:00 03/16/18 08:59 Lorazepam (Ativan) 1 mg Q6H PRN ORAL For Anxiety 03/12/18 12:00 03/19/18 11:59 Olanzapine (ZyPREXA) 20 mg BEDTIME ORAL 03/14/18 21:00 04/13/18 20:59 Ondansetron HCl (Zofran) 4 mg Q4H PRN IVP Nausea & Vomiting 03/12/18 08:30 04/08/18 08:29 03/13/18 06:59 Pantoprazole (Protonix) 40 mg DAILY IVP 03/12/18 09:00 04/08/18 08:59 03/14/18 09:16 YVES PEREZ March 14, 2018 16:22
[2018-03-14 20:00] VITALS: BP 129/86
[2018-03-14] MEDS ORDERED: OLANZapine 10mg tab ORAL SCH (21:00)
[2018-03-15] VITALS: BP 144/92
[2018-03-15 04:00] VITALS: BP 132/90
[2018-03-15 08:00] VITALS: BP 137/85
[2018-03-15] MEDS: Heparin 5000 units/ml inj SUBQ SCH (08:29)
[2018-03-15] MEDS: Pantoprazole Inj IVP SCH (08:29)
[2018-03-15 09:09] LABS: BASOPHILS % (AUTO) 0.7 % (0.0-2.0); EOSINOPHILS % (AUTO) 1.5 % (0.0-3.0); HEMOGLOBIN 10.6 G/DL (12.0-16.0); LYMPHOCYTES % (AUTO) 22.1 % (20.0-45.0); MEAN CORPUSCULAR VOLUME 87 FL (80-99); NEUTROPHILS % (AUTO) 70.7 % (45.0-75.0); PLATELET COUNT 280 K/UL (150-450); RED BLOOD COUNT 3.68 M/UL (4.20-5.40); RED CELL DISTRIBUTION WIDTH 14.1 % (11.6-14.8); WHITE BLOOD COUNT 9.7 K/UL (4.8-10.8)
[2018-03-15] MEDS: Albuterol/Ipratropium 3ml neb HHN PRN (09:40)
--- NOTE | 2018-03-17 10:14 | Diagnostic Imaging Report ---
APPROVED REPORT CPT Code: 00158 Present Symptoms Comments: LEFT ARM SWELLING BILATERAL UPPER EXTREMITY: Imaging reveals patency of the internal jugular, subclavian, axillary and brachial veins. The left cephalic and right and left basilic veins are also patent. Doppler indicates normal spontaneous flow within these venous segments, bilaterally. Imaging reveals acute thrombus in the right cephalic vein at upper arm level.
--- NOTE | 2018-03-18 09:07 | Discharge Summary ---
Discharge Summary Discharge Summary Discharge Summary DATE OF ADMISSION: [ 03/08/2018 DATE OF DISCHARGE: 03/15/2018 REASON FOR ADMISSION: 32years old female with past medical history of schizophrenia and asthma, presented to emergency room for evaluation. Patient was brought by paramedics for drug overdose. Patient overdosed on multiply pills: Tylenol, Benadryl and blood pressure medications night prior to presentation to ED. Patient felt dizzy and weak. Family called 911. Patient felt suicidal on the day of overdosing, but not at the time of arrival to emergency department. Patient was hypotensive with blood pressure 63/30. Noted significant leukocytosis WBC 19.2, elevated LFT, acute kidney injury with BUN 30 and creatinine 4.3. Urine test was negative. Urine toxicology screen was positive for opiates and phencyclidine. Tylenol level was elevated, 38. Serum alcohol less than 3. Patient received aggressive IV hydration but remained hypotensive. Blood pressure initially temporally improved with a glucagon, however then blood pressure dropped again despite aggressive IV hydration. Right femoral central line was placed , and the patient was started on pressors. Patient was transferred to ICU for further management with diagnosis of drug overdose, shock , possible sepsis, altered mental status, acute kidney injury shock liver, schizophrenia. CONSULTANTS: pulmonary Dr. Atif VELAZCO specialist Dr. Audie Asher psychiatrist or [facility] COURSE: Patient admitted to ICU. Patient was briefly on dopamine for hemodynamic stability. Subsequently blood pressure responded to pressor , and patient was able to be weaned from pressor. However ABG revealed severe acidosis with hypercapnia pH 7.15, PCO2 65.8. Patient was orally intubated by emergency room doctor. Chest x-ray revealed bilateral coarse reticular opacities left greater than right. Pneumonia could not be excluded. No significant pleural effusion or pneumothorax, stable position of endotracheal tube. Ventilator support and pulmonary toilet were provided. [employer] closely followed. Patient was able to be weaned on March 10. ABG on oxygen via nasal cannula revealed resolution of respiratory acidosis. Supplemental oxygen provided as needed to keep pulse oximetry above 92%. Pulmonary toilet provided as needed. Infectious disease specialist closely followed . Patient was started on empiric antibiotics. Blood cultures were negative, urine culture revealed Joanne, sputum culture was not obtained since patient was unable to provide specimen. Patient status post treatment with antibiotics, leukocytosis resolved, afebrile. Infectious disease specialist recommended to observe patient off antibiotic. Patient was on IV hydration. Renal parameters and electrolytes were closely monitored. Electrolytes were corrected as needed. Nephrotoxics were avoided. Acute kidney injury resolved, probably multifactorial due to drug overdose, sepsis and dehydration. Prior to discharge BUN 30 down to 25, creatinine from 4.3 down to 1.8. Tylenol Level down to 19. LFTs remained elevated likely due to combined effect of sepsis and multiply drug overdose. Echocardiogram revealed preserved ejection fraction of 65%, no left ventricular hypertrophy, no pericardial effusion. Right ventricular systolic pressure of 56 consistent with moderate pulmonary hypertension. Venous duplex revealed right cephalic vein thrombosis. Patient was briefly on IV heparin which switched to subcutaneous heparin. Bedside swallow evaluation was done , patient had mild dysphagia. Diet was provided as per speech therapist recommendation with strict aspiration/reflux precautions. Psychiatrist closely followed. Psychiatrist diagnosed patient with schizophrenia chronic paranoid type, and optimize psychiatric medication regimen. Patient was reassessed with danger to self after being medically cleared for discharge. Psychiatrist concluded that the patient may not leave against medical advice. Transfer was arranged to [facility] for further management . Patient was medically cleared for transfer, monitor LFTs at the facility. FINAL DIAGNOSES: drug overdose, multiply sepsis shock probable pneumonia acute respiratory failure with hypercapnia requiring intubation altered mental status likely due to toxic encephalopathy from PCP intoxication, Tylenol overdose and opiate dependency cephalic vein thrombosis right upper extremity acute kidney injury, improved Shock liver Schizophrenia, chronic paranoid type DISCHARGE MEDICATIONS: See Medication Reconciliation list. DISCHARGE INSTRUCTIONS: Patient was transferred to psychiatric facility, [facility], for further management. I have been assigned to dictate discharge summary for this account. I was not involved in the patient's management. Cyndi Persaud NP ([place]) March 18, 2018 09:07
--- NOTE | 2018-04-02 11:05 | Physician Query ---
--------- THIS DOCUMENT IS A PERMANENT PART OF THE MEDICAL RECORD --------- PLEASE COMPLETE DOCUMENT BEFORE SIGNING Dear Dr. 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 Questions asked do not imply a particular answer is desired or expected. We greatly appreciate your clarification on this issue. Clinical Documentation States: The patient was admitted to the hospital with the respiratory distress with hypoxemia with a history of a possible underlying pneumonia. REASON FOR ADMISSION: 32years old female with past medical history of schizophrenia and asthma, presented to emergency room for evaluation. Patient was brought by paramedics for drug overdose. Patient admitted to ICU. Patient was briefly on dopamine for hemodynamic stability. Subsequently blood pressure responded to pressor and patient was able to be weaned from pressor. However ABG revealed severe acidosis with hypercapnia pH 7.15, PCO2 65.8. Patient was orally intubated by emergency room doctor. Chest x-ray revealed bilateral coarse reticular opacities left greater than right. Pneumonia could not be excluded. No significant pleural effusion or pneumothorax, stable position of endotracheal tube. 1) Was Respiratory Failure present on admission? (x )Present on admission ( ) Not present on admission ( ) Cannot be clinically determined whether the condition was present on admission 2) Was pneumonia ruled in or out during this admission? ( x)Yes ( )No ( )Cannot be clinically determined Please also document in your Progress Notes and/or Discharge Summary and indicate if the condition was present on admission. LESLY HONG M.D. DATE & TIME [facility]
== END 2018-03-15 10:22 | DRG 917 ==
LOC: EDBD 20:35 → EMR 21:05 → ICU 21:46 → 2E 03-09 00:37 → UNDOADMIN 03-09 00:37 → EDBEDREQ 03-09 05:57 → 2E 03-12 08:00
PROC: 06HM33Z Insertion of Infusion Device into Right Femoral Vein, Percutaneous Approach (ICD-10-PCS; 2018-03-08)
PROC: 5A09357 Assistance with Respiratory Ventilation, Less than 24 Consecutive Hours, Continuous Positive Airway Pressure (ICD-10-PCS; principal; 2018-03-09)
PROC: 5A1945Z Respiratory Ventilation, 24-96 Consecutive Hours (ICD-10-PCS; principal; 2018-03-09)
PROC: 0BH17EZ Insertion of Endotracheal Airway into Trachea, Via Natural or Artificial Opening (ICD-10-PCS; principal; 2018-03-09)
DX: T39.1X2A Poisoning by 4-Aminophenol derivatives, intentional self-harm, initial encounter (principal); J96.02 Acute respiratory failure with hypercapnia; K72.00 Acute and subacute hepatic failure without coma; A41.9 Sepsis, unspecified organism; J18.9 Pneumonia, unspecified organism; G92 Toxic encephalopathy; N17.9 Acute kidney failure, unspecified; I82.619 Acute embolism and thrombosis of superficial veins of unspecified upper extremity; R57.9 Shock, unspecified; F20.0 Paranoid schizophrenia; F11.20 Opioid dependence, uncomplicated; I82.621 Acute embolism and thrombosis of deep veins of right upper extremity; R31.9 Hematuria, unspecified; J45.909 Unspecified asthma, uncomplicated; E86.0 Dehydration; R13.10 Dysphagia, unspecified; Z78.1 Physical restraint status; T45.0X2A Poisoning by antiallergic and antiemetic drugs, intentional self-harm, initial encounter; T44.7X2A Poisoning by beta-adrenoreceptor antagonists, intentional self-harm, initial encounter; T46.5X2A Poisoning by other antihypertensive drugs, intentional self-harm, initial encounter; Y92.019 Unspecified place in single-family (private) house as the place of occurrence of the external cause
CPT/HCPCS: 36415; 36600; 71045; 80048; 80053; 80307; 80329; 81003; 81025; 82550; 82553; 82803; 82962; 83605; 83735; 84075; 84132; 84484; 84702; 85007; 85025; 85610; 85730; 86703; 87040; 87086; 93306; 93970; 94002; 94003; 94640; 94660; 94664; 94760; 99285; J2405; J7620; J8499

== ENCOUNTER 2019-07-26 08:30 | Inpatient (IN) | payer MEDICARE, MEDICAID ==
[~2019-07-26] VITALS: Ht 172.7 cm; Wt 87.5 kg
[~2019-07-26 08:30] MED LIST changes: +ACETAMINOPHEN-1 EAC1 ORAL; +ATIVAN2 MG/1 ML IV; +BANOPHEN25 MG PO; -Calcium Gluconate 1gm/10ml vial IVP ONE; +DUONEB 0.5-3(2.53 ML HHN; -Glucagon 1mg Inj IV ONE; +HAIR, SKIN & N1 EACH PO; +HALDOL5 MG/1 ML IM; +METFORMIN HCL500 M1 ORAL; +PANTOPRAZOLE SO40 MG ORAL; +PROZAC20 MG ORAL; +TURMERIC500 MG PO; +TYLENOL EXTRA500 MG ORAL; +VENTOLIN HFA18 GM INH; +ZOFRAN 4 MG4 MG/2 ML IV; +ZYPREXA10 MG ORAL
--- NOTE | 2019-07-26 08:40 | NUR ---
attempted ekg, patient not cooperating.
[2019-07-26] MEDS ORDERED: DiphenhydrAMINE 50mg/ml Inj IM ONE (08:45)
[2019-07-26] MEDS ORDERED: Haloperidol 5mg/ml Inj IM ONE (08:45)
[2019-07-26] MEDS ORDERED: LORazepam Inj 2mg/ml 1ml IM ONE (08:45)
--- NOTE | 2019-07-26 08:50 | NUR ---
ED Nurse Note:pt. was BIBA from [facility] for exposing herself to other residents and screaming and touching them , she is hyperactive and noncompliant on arrival , naked and refuses clothes, she was placed on 51/50 hold by DORIAN, pt. received medications per MD order, blood sent to labs, her skin is intact
--- NOTE | 2019-07-26 08:50 | Emergency Room Report ---
History of Present Illness General Chief Complaint: Behavioral Complaint Source: Medical Record, EMS Present Illness HPI Patient presents by paramedics and police department Being placed on a 5150 hold It was reported that the patient was running outside naked She had previously checked herself into a nursing facility Upon arrival the patient is agitated screaming Required sedation after initial physical restraint Patient was deemed to be a danger to herself and staff at the time Review of medical records reveals significant past medical history including schizophrenia previous hospitalization Patient reports that she has not had any medications over the last 5 days Allergies: Coded Allergies: No Known Allergies (Unverified , 03/08/18) Patient History Limited by: medical condition Past Medical History: see triage record Last Menstrual Period: unk Now: No Reviewed Nursing Documentation: PMH: Agreed; PSxH: Agreed Nursing Documentation-PMH Past Medical History: No History, Except For Hx Cardiac Problems: No Hx Hypertension: Yes Hx Asthma: Yes Hx COPD: Yes Hx Gastrointestinal Problems: Yes - GERD History Of Psychiatric Problem: Yes - etoh abuse, substance abuse, schizopphrenia, bipolar, depression Hx Neurological Problems: No Review of Systems All Other Systems: limited - Other than the ones mentioned in the history of present illness all others are reviewed however they do stay limited due to the patient's mental status Physical Exam Vital Signs Date Time Temp Pulse Resp B/P (MAP) Pulse Ox O2 Delivery O2 Flow Rate FiO2 07/26/19 08:25 93 20 111/76 (88) 98 Room Air Sp02 EP Interpretation: reviewed, normal General Appearance: moderate distress - Agitated screaming Head: normocephalic, atraumatic Eyes: bilateral eye PERRL, bilateral eye EOMI ENT: normal pharynx, no angioedema Neck: supple Respiratory: lungs clear, no retraction, no accessory muscle use Cardiovascular #1: regular rate, rhythm Gastrointestinal: non tender, soft Genitourinary: no CVA tenderness Musculoskeletal: normal inspection Neurologic: alert, responsive Psychiatric: anxious Skin: no rash, palpation normal Lymphatic: no adenopathy Procedures Critical Care Time Critical Care Time 40 minutes for multiple re-evaluations, critical presentation with concern for harm to self, not including any procedural time Medical Decision Making Diagnostic Impression: Primary Impression: Altered mental state Additional Impression: Schizophrenia ER Course Patient presents in acute distress Initially requiring chemical and physical restraints Acute intervention with medication Patient has extensive testing initiated Drug screen is negative raising the concern of more organic pathology Patient is further hydrated At this time is not able to be medically stabilized and cleared and requires further inpatient medical care and psychiatric evaluation Case was discussed with the patient's primary who reports that he will have psychiatric evaluation as well provided Labs Test 07/26/19 09:00 White Blood Count 5.6 K/UL (4.8-10.8) Red Blood Count 4.67 M/UL (4.20-5.40) Hemoglobin 14.5 G/DL (12.0-16.0) Hematocrit 42.9 % (37.0-47.0) Mean Corpuscular Volume 92 FL (80-99) Mean Corpuscular Hemoglobin 31.0 PG (27.0-31.0) Mean Corpuscular Hemoglobin Concent 33.7 G/DL (32.0-36.0) Red Cell Distribution Width 11.6 % (11.6-14.8) Platelet Count 363 K/UL (150-450) Mean Platelet Volume 5.6 FL (6.5-10.1) Neutrophils (%) (Auto) 41.4 % (45.0-75.0) Lymphocytes (%) (Auto) 32.4 % (20.0-45.0) Monocytes (%) (Auto) 7.9 % (1.0-10.0) Eosinophils (%) (Auto) 16.6 % (0.0-3.0) Basophils (%) (Auto) 1.8 % (0.0-2.0) Urine Color Pale yellow Urine Appearance Clear Urine pH 6 (4.5-8.0) Urine Specific [place] 1.010 (1.005-1.035) Urine Protein Negative (NEGATIVE) Urine Glucose (UA) Negative (NEGATIVE) Urine Ketones Negative (NEGATIVE) Urine Blood Negative (NEGATIVE) Urine Nitrite Negative (NEGATIVE) Urine Bilirubin Negative (NEGATIVE) Urine Urobilinogen Normal MG/DL (0.0-1.0) Urine Leukocyte Esterase 1+ (NEGATIVE) Urine RBC 0 /HPF (0 - 2) Urine WBC 0-2 /HPF (0 - 2) Urine Squamous Epithelial Cells Few /LPF (NONE/OCC) Urine Bacteria Occasional /HPF (NONE) Urine HCG, Qualitative Negative (NEGATIVE) Sodium Level 136 MMOL/L (136-145) Potassium Level 4.3 MMOL/L (3.5-5.1) Chloride Level 106 MMOL/L (98-107) Carbon Dioxide Level 23 MMOL/L (21-32) Anion Gap 7 mmol/L (5-15) Blood Urea Nitrogen 15 mg/dL (7-18) Creatinine 1.0 MG/DL (0.55-1.30) Estimat Glomerular Filtration Rate > 60 mL/min (>60) Glucose Level 81 MG/DL (74-106) Calcium Level 9.4 MG/DL (8.5-10.1) Total Bilirubin 0.7 MG/DL (0.2-1.0) Aspartate Amino Transf (AST/SGOT) 22 U/L (15-37) Alanine Aminotransferase (ALT/SGPT) 12 U/L (12-78) Alkaline Phosphatase 117 U/L (46-116) Total Protein 8.0 G/DL (6.4-8.2) Albumin 3.5 G/DL (3.4-5.0) Globulin 4.5 g/dL Albumin/Globulin Ratio 0.8 (1.0-2.7) Salicylates Level 2.6 ug/mL (2.8-20) Urine Opiates Screen Negative (NEGATIVE) Acetaminophen Level < 2 MCG/ML (10-30) Urine Barbiturates Screen Negative (NEGATIVE) Phencyclidine (PCP) Screen Negative (NEGATIVE) Urine Amphetamines Screen Negative (NEGATIVE) Urine Benzodiazepines Screen Negative (NEGATIVE) Urine Cocaine Screen Negative (NEGATIVE) Urine Marijuana (THC) Screen Negative (NEGATIVE) Serum Alcohol < 3 mg/dL Rhythm Strip Diag. Results EP Interpretation: yes Rate: 77 Rhythm: NSR, no PVC's, no ectopy Last Vital Signs Date Time Temp Pulse Resp B/P (MAP) Pulse Ox O2 Delivery O2 Flow Rate FiO2 07/26/19 08:25 93 20 111/76 (88) 98 Room Air Status: improved Disposition: ADMITTED INPATIENT Condition: Serious RacielShahida crawford Jul 26, 2019 08:50
[2019-07-26] MEDS ORDERED: BENZTROPINE ME0.5 MG PO (09:00)
[2019-07-26] MEDS ORDERED: PROZAC40 MG ORAL (09:00)
[2019-07-26] MEDS ORDERED: ATIVAN1 MG ORAL (09:00)
--- NOTE | 2019-07-26 09:15 | NUR ---
ED Nurse Note:sitter is in the room per ER MD order
[2019-07-26 09:16] LABS: BASOPHILS % (AUTO) 1.8 % (0.0-2.0); EOSINOPHILS % (AUTO) 16.6 % (0.0-3.0); HEMATOCRIT 42.9 % (37.0-47.0); HEMOGLOBIN 14.5 G/DL (12.0-16.0); LYMPHOCYTES % (AUTO) 32.4 % (20.0-45.0); MEAN CORPUSCULAR VOLUME 92 FL (80-99); MONOCYTES % (AUTO) 7.9 % (1.0-10.0); NEUTROPHILS % (AUTO) 41.4 % (45.0-75.0); PLATELET COUNT 363 K/UL (150-450); RED BLOOD COUNT 4.67 M/UL (4.20-5.40); RED CELL DISTRIBUTION WIDTH 11.6 % (11.6-14.8); WHITE BLOOD COUNT 5.6 K/UL (4.8-10.8)
--- NOTE | 2019-07-26 09:20 | NUR ---
ED Nurse Note:personal belongings placed in locker #2, urine sent to labs
[2019-07-26 09:26] LABS: ANION GAP 7 mmol/L (5-15); BLOOD UREA NITROGEN 15 mg/dL (7-18); CALCIUM 9.4 MG/DL (8.5-10.1); CARBON DIOXIDE 23 MMOL/L (21-32); CHLORIDE 106 MMOL/L (98-107); POTASSIUM 4.3 MMOL/L (3.5-5.1); SODIUM 136 MMOL/L (136-145)
[2019-07-26 09:28] VITALS: BP 105/68
[2019-07-26 09:31] LABS: ALANINE AMINOTRANSFERASE 12 U/L (12-78); ALBUMIN 3.5 G/DL (3.4-5.0); ALBUMIN/GLOBULIN RATIO 0.8 (1.0-2.7); ALKALINE PHOSPHATASE 117 U/L (46-116); ASPARTATE AMINO TRANSFERASE 22 U/L (15-37); BILIRUBIN,TOTAL 0.7 MG/DL (0.2-1.0)
[2019-07-26 09:33] LABS: APPEARANCE,URINE CLEAR; BILIRUBIN, URINE NEGATIVE (NEGATIVE); COLOR,URINE PALE YELLOW; GLUCOSE, URINE (UA) NEGATIVE (NEGATIVE); KETONES,URINE NEGATIVE (NEGATIVE); LEUKOCYTE ESTERASE ,URINE 1+ (NEGATIVE); NITRITE,URINE NEGATIVE (NEGATIVE); PH,URINE 6 (4.5-8.0); PROTEIN,URINE NEGATIVE (NEGATIVE); UROBILINOGEN,URINE NORMAL MG/DL (0.0-1.0)
--- NOTE | 2019-07-26 09:46 | NUR ---
attempted ekg. Patient still uncooperative, will attempt ekg later. ermd notified.
[2019-07-26] MEDS ORDERED: Midazolam 2mg/2ml Inj IVP ONE (10:00)
--- NOTE | 2019-07-26 11:00 | NUR ---
ED Nurse Note:pt. is sleeping no signs of distress noted, VSS, sitter at the bedside
[2019-07-26 12:45] VITALS: BP 110/69
[2019-07-26 13:00] VITALS: BP 113/52
--- NOTE | 2019-07-26 13:00 | NUR ---
ED Nurse Note:called [facility] with report- given to Stephane RN, pt. was taken up stairs, with sitter order
--- NOTE | 2019-07-26 13:00 | NUR ---
NURSE NOTES: Received from Kae ROSAS [facility] ED. AOX1 and transferred from ED via [place] with evidence technician and ED RN. Pt able to transferred from a gurney to bed by herself by rolling over herself. Bed in it's lowest position and locked. No c/o pain and No acute distress noted. Noted inappropriate hand touch to a male RN who helped her transfer and using inappropriate words to RNs, Call light within easy reach. Sitter at the bedside. Will continue to plan of care.
--- NOTE | 2019-07-26 13:14 | NUR ---
NURSE NOTES: Dr. Bateman paged from new admission orders and awaiting for reply
[2019-07-26] MEDS ORDERED: Morphine Sulfate 2mg/ml Inj(IV/IM USE ONLY) IVP PRN (15:15)
[2019-07-26] MEDS ORDERED: Zolpidem 5mg tab ORAL PRN (15:15)
[2019-07-26] MEDS ORDERED: LORazepam Inj 2mg/ml 1ml IV PRN (15:15)
[2019-07-26] MEDS ORDERED: Haloperidol 5mg/ml Inj IM PRN (15:15)
[2019-07-26] MEDS ORDERED: Miralax 17gm pkt ORAL PRN (15:15)
[2019-07-26 16:00] VITALS: BP 112/62
--- NOTE | 2019-07-26 16:00 | History and Physical Report ---
DATE OF ADMISSION: 07/26/2019 TIME SEEN: 10 a.m. CONSULTANTS: 1. Monik Blood M.D. 2. Mary Bond M.D. CHIEF COMPLAINT: Acute psychosis. BRIEF HISTORY: This is a 33-year-old female from [facility], apparently she has been acting very bizarre, running around naked. The patient was agitated, sent to [facility], diagnosed with the above. Currently in restraints in the ER, slightly confused, wants to go to sleep she says. PAST MEDICAL HISTORY: Includes psychosis, asthma, LYNNE, drug abuse, DVT, and schizophrenia. PAST SURGICAL HISTORY: Hip. ALLERGIES: Denies. MEDICATIONS: Include , Haldol, diphenhydramine, and lorazepam. SOCIAL HISTORY: Positive smoke. Positive alcohol. No intravenous drug abuse. FAMILY HISTORY: Noncontributory. PHYSICAL EXAMINATION: GENERAL: Confused in bed, oriented x1, in no acute distress. VITAL SIGNS: Show temperature 98 degrees, pulse 93, respirations 20, and blood pressure 105/68. CARDIOVASCULAR: No murmur. LUNGS: Distant and clear. ABDOMEN: Bowel sounds positive. Nontender. Nondistended. EXTREMITIES: No cyanosis, clubbing, or edema. NEUROLOGIC: The patient moves all extremities. Slightly writhing over. LABORATORY AND DIAGNOSTIC DATA: Labs at this time show CBC is normal. BMP shows alkaline phosphatase 117, otherwise normal. Urinalysis 1+ leukocyte esterase. Urine tox, salicylate is 2.6 otherwise negative. ASSESSMENT: 1. Acute psychosis. 2. Possible urinary tract infection. 3. History of asthma. 4. LYNNE. 5. Drug abuse. 6. DVT. 7. Schizophrenia. PLAN: 1. Antibiotics as needed. 2. Psych treatment. 3. Dietary followup. 4. ER is trying to transfer to a psych facility. 5. We will continue to follow this patient. Kenneth Bateman D.O. DR: AVA JOB#: [id number] CC:
[2019-07-26] MEDS: NovoLOG Insulin Flexpen SUBQ SCH ×2 (16:30→21:00)
[2019-07-26] MEDS: metFORMIN 500mg tab ORAL SCH (18:00)
--- NOTE | 2019-07-26 19:18 | NUR ---
HAND-OFF: Report given to Jannet ROSAS. Pt remains stable.
--- NOTE | 2019-07-26 19:40 | NUR ---
NURSE NOTES: Received patient from RALPH Javed, patient stable, no distress. Patient is naked and refuses to cover herself , AOx1, denies pain. CHERY Santacruz at bedside as sitter. Will continue to monitor and reassess.
[2019-07-26 20:00] VITALS: BP 106/79
[2019-07-26] MEDS: OLANZapine 10mg tab ORAL SCH (20:58)
[2019-07-26] MEDS: LORazepam 1mg tab ORAL SCH (20:58)
[2019-07-26] MEDS: Heparin 5000 units/ml inj SUBQ SCH (21:00)
--- NOTE | 2019-07-26 21:08 | NUR ---
patient refuses blood sugar check and heparin
[2019-07-27] VITALS: BP 119/71
[2019-07-27 04:00] VITALS: BP 124/71
[2019-07-27] MEDS: NovoLOG Insulin Flexpen SUBQ SCH ×4 (06:30→20:26)
--- NOTE | 2019-07-27 06:45 | NUR ---
Patient refuses blood sugar check. MD aware, will endorse to the incoming nurse
[2019-07-27] MEDS ORDERED: Albuterol 90mcg Inhaler 8gm INH PRN (06:58)
[2019-07-27] MEDS ORDERED: Albuterol/Ipratropium 3ml neb HHN PRN (07:00)
--- NOTE | 2019-07-27 07:56 | NUR ---
HAND-OFF: Report given to RALPH Marcano, patient in stable condition,plan of care endorsed.
--- NOTE | 2019-07-27 08:18 | NUR ---
NURSE NOTES: Patient awake, covers head on blanket, doesn't wanna talk to me; on room air, no sing of distress and shortness of breath; no sing of chest pain; IV LH 22G flushes well; sitter in room with patient; side rails up x2, breaks engaged, call light within reach; will keep monitoring.
[2019-07-27] MEDS: metFORMIN 500mg tab ORAL SCH ×3 (09:00→17:27)
[2019-07-27] MEDS: Heparin 5000 units/ml inj SUBQ SCH ×2 (09:00→20:26)
[2019-07-27] MEDS: LORazepam 1mg tab ORAL SCH ×2 (09:09→20:21)
--- NOTE | 2019-07-27 09:48 | General Progress Note ---
Assessment/Plan Problem List: (1) Asthma ICD Codes: J45.909 - Unspecified asthma, uncomplicated SNOMED: 176146860 (2) UTI (urinary tract infection) ICD Codes: N39.0 - Urinary tract infection, site not specified SNOMED: 13984855 (3) Behavioral disorder SNOMED: 031317756 (4) Altered mental state ICD Codes: R41.82 - Altered mental status, unspecified SNOMED: 900253344 (5) LYNNE (acute kidney injury) ICD Codes: N17.9 - Acute kidney failure, unspecified SNOMED: 72866363 (6) Schizophrenia ICD Codes: F20.9 - Schizophrenia, unspecified SNOMED: 32353365 Status: stable, progressing Assessment/Plan: abx psyc tx cbc bmp am dc to psyc Subjective Constitutional: Reports: weakness Allergies: Coded Allergies: No Known Allergies (Unverified , 03/08/18) All Systems: reviewed and negative except above Subjective confused in bed Objective Last 24 Hour Vital Signs Date Time Temp Pulse Resp B/P (MAP) Pulse Ox O2 Delivery O2 Flow Rate FiO2 07/27/19 04:00 98.0 64 18 124/71 (88) 97 07/27/19 00:00 97.9 68 18 119/71 (87) 99 07/26/19 21:00 Room Air 07/26/19 20:00 98.6 72 18 106/79 (88) 99 07/26/19 16:00 98.2 74 18 112/62 (79) 98 07/26/19 13:23 Room Air 07/26/19 13:05 98.0 71 16 110/69 98 Room Air 07/26/19 13:00 98.1 66 18 113/52 (72) 96 07/26/19 12:45 98.0 71 16 110/69 98 Room Air Intake and Output 07/26/19 07/27/19 19:00 07:00 Intake Total 720 ml Balance 720 ml Intake Oral 720 ml # Voids 3 4 Height (Feet): 5 Height (Inches): 8.00 Weight (Pounds): 193 General Appearance: confused EENT: normal ENT inspection Neck: normal alignment Cardiovascular: normal peripheral pulses, normal rate, regular rhythm Respiratory/Chest: chest wall non-tender, lungs clear, normal breath sounds Abdomen: normal bowel sounds, non tender, soft Extremities: normal inspection Edema: no edema noted Arm (L), no edema noted Arm (R), no edema noted Leg (L), no edema noted Leg (R), no edema noted Pedal (L), no edema noted Pedal (R), no edema noted Generalized Neurologic: motor weakness Skin: normal pigmentation, warm/dry Kenneth Bateman DO Jul 27, 2019 09:47
--- NOTE | 2019-07-27 10:56 | NUR ---
NURSE NOTES: Patient refused the bilateral venous duplex; MD Blood aware and Charge nurse, Lakshmi notified.
--- NOTE | 2019-07-27 11:38 | NUR ---
*-* DISCHARGE PLANNING *-* PATIENT HAS BEEN REFERRED TO: [facility] P: [phone] F: [phone] F: [phone] Addendum: 07/27/19 at 1145 by SAL SALCEDO *-* DISREGARD THIS NOTE INCORRECT PATIENT *-*
--- NOTE | 2019-07-27 11:45 | NUR ---
*-* DISCHARGE PLANNING *-* PATIENT HAS BEEN REFERRED TO: [facility] P: [phone] F: [phone] F: [phone]
[2019-07-27 12:00] VITALS: BP 108/75
--- NOTE | 2019-07-27 13:33 | Consultation ---
History of Present Illness General Chief Complaint: Behavioral Complaint Present Illness HPI 33 year old female with hx of schizophrenia, [facility] resident, brought in b /o uncontrollable behavior. she is awake now and comfortable. Allergies: Coded Allergies: No Known Allergies (Unverified , 03/08/18) Medication History Scheduled Albuterol Sulfate (Ventolin Hfa), 2 PUFFS INH EVERY 6 HOURS, (Reported) Benztropine Mesylate* (Cogentin*), 1 MG PO BID, (Reported) Fluoxetine Hcl* (Prozac*), 20 MG ORAL DAILY, (Reported) Fluoxetine Hcl* (Prozac*), 40 MG ORAL DAILY, (Reported) Haloperidol Lactate (Haldol), 5 MG IM EVERY 6 HOURS, (Reported) Lamotrigine* (Lamictal*), 100 MG ORAL DAILY, (Reported) Lorazepam* (Ativan*), 1 MG ORAL Q12HR, (Reported) Lurasidone Hcl (Latuda), 20 MG PO QHS, (Reported) Metformin Hcl* (Metformin Hcl*), 500 MG ORAL TWICE A DAY, (Reported) Olanzapine* (Zyprexa*), 10 MG ORAL QHS, (Reported) Olanzapine* (Zyprexa*), 10 MG ORAL QHS, (Reported) Pantoprazole* (Pantoprazole*), 40 MG ORAL DAILY, (Reported) Scheduled PRN Acetaminophen With Codeine (T#3) (Tylenol #3 Tab*), 1 TAB ORAL Q4H PRN for For Pain, (Reported) Acetaminophen* (Tylenol Extra Strength*), 650 MG ORAL Q4HR PRN for Mild Pain/ Temp > 100.5, (Reported) Ipratropium/Albuterol Sulfate (DuoNeb 0.5-3(2.5)mg/3ml), 3 ML HHN Q6HR PRN for Shortness of breath, (Reported) Lorazepam* (Ativan*), 1 MG IV Q6HR PRN for Abdominal cramps, (Reported) Lorazepam* (Ativan*), 2 MG IV Q4HR PRN for Agitation, (Reported) Ondansetron* (Zofran*), 4 MG IV Q4HR PRN for Nausea & Vomiting, (Reported) Miscellaneous Medications Diphenhydramine Hcl (Banophen), 25 MG PO, (Reported) Multivitamin With Minerals (Hair, Skin & Nails), 1 EACH PO, (Reported) Turmeric Root Extract (Turmeric), 1,000 MG PO, (Reported) Patient History Healthcare decision maker N Resuscitation status Full Code Advanced Directive on File Past Medical/Surgical History Past Medical/Surgical History: (1) Asthma (2) Drug overdose (3) Tylenol overdose (4) PCP intoxication Review of Systems All Other Systems: negative except mentioned in HPI Physical Exam General Appearance: WD/WN Lines, tubes and drains: peripheral HEENT: atraumatic, anicteric Neck: non-tender, normal alignment Respiratory/Chest: chest wall non-tender Breasts: no masses Cardiovascular/Chest: normal peripheral pulses Abdomen: normal bowel sounds Genitourinary/Rectal: normal genital exam, heme negative stool Extremities: normal range of motion Last 24 Hour Vital Signs Date Time Temp Pulse Resp B/P (MAP) Pulse Ox O2 Delivery O2 Flow Rate FiO2 07/27/19 12:00 98.6 95 20 108/75 (86) 99 07/27/19 09:00 Room Air 07/27/19 04:00 98.0 64 18 124/71 (88) 97 07/27/19 00:00 97.9 68 18 119/71 (87) 99 07/26/19 21:00 Room Air 07/26/19 20:00 98.6 72 18 106/79 (88) 99 07/26/19 16:00 98.2 74 18 112/62 (79) 98 Intake and Output 07/26/19 07/27/19 18:59 06:59 Intake Total 720 ml Balance 720 ml Intake Oral 720 ml # Voids 3 4 Height (Feet): 5 Height (Inches): 8.00 Weight (Pounds): 193 Medications Current Medications Medications (Trade) Dose Ordered Sig/Melissa Route PRN Reason Start Time Stop Time Status Last Admin Dose Admin Acetaminophen (Tylenol) 650 mg Q4H PRN ORAL fever 07/26/19 15:15 08/25/19 15:14 Albuterol Sulfate (Proventil MDI) 2 puff Q6H PRN INH Shortness of Breath 07/27/19 06:58 08/26/19 06:57 Dextrose (Dextrose 50%) 25 ml Q30M PRN IV Hypoglycemia 07/26/19 15:15 08/25/19 15:14 Dextrose (Dextrose 50%) 50 ml Q30M PRN IV Hypoglycemia 07/26/19 15:15 08/25/19 15:14 Fluoxetine HCl (PROzac) 20 mg DAILY ORAL 07/27/19 09:00 08/26/19 08:59 07/27/19 09:08 Haloperidol Lactate (Haldol) 5 mg Q6H PRN IM Agitation 07/26/19 15:15 08/25/19 15:14 Heparin Sodium (Porcine) (Heparin 5000 units/ml) 5,000 units EVERY 12 HOURS SUBQ 07/26/19 21:00 08/25/19 20:59 Insulin Aspart (NovoLOG) BEFORE MEALS AND HS SUBQ 07/26/19 16:30 08/25/19 16:29 Lamotrigine (LaMICtal) 100 mg DAILY ORAL 07/27/19 09:00 08/26/19 08:59 07/27/19 09:09 Lorazepam (Ativan 2mg/ml 1ml) 0.5 mg Q4H PRN IV For Anxiety 07/26/19 15:15 08/02/19 15:14 Lorazepam (Ativan) 1 mg Q12HR ORAL 07/26/19 21:00 08/02/19 20:59 07/27/19 09:09 Metformin HCl (Glucophage) 500 mg TWICE A DAY ORAL 07/26/19 18:00 08/25/19 17:59 07/27/19 09:09 Morphine Sulfate (Morphine Sulfate) 1 mg Q4H PRN IVP For Pain 07/26/19 15:15 08/02/19 15:14 Olanzapine (ZyPREXA) 10 mg QHS ORAL 07/26/19 21:00 08/25/19 20:59 07/26/19 20:58 Ondansetron HCl (Zofran) 4 mg Q6H PRN IVP Nausea & Vomiting 07/26/19 15:15 08/25/19 15:14 Polyethylene Glycol (Miralax) 17 gm HSPRN PRN ORAL Constipation 07/26/19 15:15 08/25/19 15:14 Zolpidem Tartrate (Ambien) 5 mg HSPRN PRN ORAL Insomnia 07/26/19 15:15 08/02/19 15:14 Assessment/Plan Problem List: (1) Acute psychosis ICD Codes: F23 - Brief psychotic disorder SNOMED: 8811189, 41710257 (2) Schizophrenia ICD Codes: F20.9 - Schizophrenia, unspecified SNOMED: 26876182 Assessment/Plan: f/u psych recommendation symptomatic treatment check electrolytes Monik Blood MD Jul 27, 2019 13:33
[2019-07-27 16:00] VITALS: BP 100/63
--- NOTE | 2019-07-27 18:41 | Cardiology Report ---
APPROVED REPORT EKG Measurement Heart [id number] Normal sinus rhythm Possible Left atrial enlargement Borderline ECG
--- NOTE | 2019-07-27 19:25 | NUR ---
HAND-OFF: Report given to RALPH Hoff.
--- NOTE | 2019-07-27 19:30 | NUR ---
NURSE NOTES: Received patient in bed, asleep, sitter 1:1 observation, no acute distress, VSS, patient refused heparin injection and accu check, MD is aware, tolerated oral medications well. Patient exhibits irratic behavior, screams at times, sticks her tongue out and undresses herself. Call light is within reach, bed is locked, lowered, alarm is on. Will continue to monitor comfort and safety.
[2019-07-27 20:00] VITALS: BP 115/61
[2019-07-27] MEDS: OLANZapine 10mg tab ORAL SCH (20:21)
[2019-07-28 00:04] VITALS: BP 135/98
[2019-07-28 04:03] VITALS: BP 120/60
[2019-07-28] MEDS: NovoLOG Insulin Flexpen SUBQ SCH ×4 (06:20→20:40)
--- NOTE | 2019-07-28 07:08 | NUR ---
HAND-OFF: Report given to Kami GOTTLIEB.
--- NOTE | 2019-07-28 08:00 | NUR ---
NURSE NOTES: Pt in bed, a/a/o, talkative, noisy, agitated. no hosp gown on. only bed sheet on top of her. on room air with no s/s of sob or resp distress. Pt has IV site Right FA 18g patent and intact. tend to take pictures of her genitals and breasts per Krista sorto. Sitter @ bedside for safety. bed in lowest position, call light within reach, will continue with plan of care
[2019-07-28] MEDS: Heparin 5000 units/ml inj SUBQ SCH ×2 (08:07→20:40)
[2019-07-28] MEDS: LORazepam 1mg tab ORAL SCH ×2 (08:07→17:16)
[2019-07-28] MEDS: metFORMIN 500mg tab ORAL SCH ×2 (08:07→17:16)
[2019-07-28 08:16] VITALS: BP 121/72
--- NOTE | 2019-07-28 10:00 | NUR ---
NURSE NOTES: patient walked on the hallway with no hosp gown on. Instructed to go back to the room. Able to follow commands. will cont to monitor.
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
[2019-07-28 12:03] VITALS: BP 115/81
--- NOTE | 2019-07-28 13:10 | NUR ---
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 97.6 HR 82 RR 18 B/P 115/81 RA 98% IS: PROZAC PO ZYPREXA PO LAMICTAL PO HEPARIN SUBC HALDOL IM PRN MED/SURG STATUS
--- NOTE | 2019-07-28 13:24 | General Progress Note ---
Assessment/Plan Problem List: (1) Asthma ICD Codes: J45.909 - Unspecified asthma, uncomplicated SNOMED: 251397245 (2) UTI (urinary tract infection) ICD Codes: N39.0 - Urinary tract infection, site not specified SNOMED: 38501966 (3) LYNNE (acute kidney injury) ICD Codes: N17.9 - Acute kidney failure, unspecified SNOMED: 83390442 (4) Schizophrenia ICD Codes: F20.9 - Schizophrenia, unspecified SNOMED: 66896847 Status: unchanged Assessment/Plan: abx psyc tx cbc bmp am dc to psyc Subjective Constitutional: Reports: weakness Allergies: Coded Allergies: No Known Allergies (Unverified , 03/08/18) All Systems: reviewed and negative except above Subjective confused in bed Objective Last 24 Hour Vital Signs Date Time Temp Pulse Resp B/P (MAP) Pulse Ox O2 Delivery O2 Flow Rate FiO2 07/28/19 12:03 97.6 82 18 115/81 (92) 98 07/28/19 09:00 Room Air 07/28/19 08:16 98.7 79 19 121/72 (88) 98 07/28/19 07:30 76 18 97 Room Air 21 07/28/19 04:03 97.8 76 18 120/60 (80) 100 07/28/19 00:04 98.1 86 18 135/98 (110) 99 07/27/19 21:05 Room Air 07/27/19 20:00 98.6 75 18 115/61 (79) 99 07/27/19 16:00 98.3 74 20 100/63 (75) 96 Intake and Output 07/27/19 07/28/19 19:00 07:00 Intake Total 500 ml Balance 500 ml Intake Oral 500 ml # Voids 4 1 # Bowel Movements 1 Height (Feet): 5 Height (Inches): 8.00 Weight (Pounds): 193 General Appearance: lethargic EENT: normal ENT inspection Neck: normal alignment Cardiovascular: normal peripheral pulses, normal rate, regular rhythm Respiratory/Chest: chest wall non-tender, lungs clear, normal breath sounds Abdomen: normal bowel sounds, non tender, soft Extremities: normal inspection Edema: no edema noted Arm (L), no edema noted Arm (R), no edema noted Leg (L), no edema noted Leg (R), no edema noted Pedal (L), no edema noted Pedal (R), no edema noted Generalized Neurologic: motor weakness Skin: normal pigmentation, warm/dry Kenneth Bateman DO Jul 28, 2019 13:24
--- NOTE | 2019-07-28 14:15 | NUR ---
Social Service Note KANDY spoke with [facility] [phone], no beds at this time and they did not hold referrals from yesterday. [facility] will not accept a refax at this time and stated to call tomorrow. Patient's medicare days have been exhausted and is straight [facility]. Inpatient psych placement options will be limited as patient will require a clinician to place patient on a 5150 hold. KADNY spoke with patient's father Coleman Cerda [phone]. Father is no longer patient's conservator. Patient's conservator is Isela [facility] [phone]. Message left for Isela awaiting return call. KANDY informed Dr. Bateman and Dr. Bond.
--- NOTE | 2019-07-28 15:05 | NUR ---
NURSE NOTES: patient had been running on the hallway looking for Dr. Bond soon after he made his rounds with no hosp gown. Stated" I want to rub his head." and went back to the room. Sitter @ bedside and patient did not show any combativeness. will cont to monitor.
[2019-07-28 16:10] VITALS: BP 118/79
[2019-07-28] MEDS: OLANZapine 10mg tab ORAL SCH (17:16)
--- NOTE | 2019-07-28 18:15 | Consultation ---
DATE OF CONSULTATION: 07/28/2019 CONSULTING PHYSICIAN: Mary Bond M.D. HISTORY OF PRESENT ILLNESS: This is a 33-year-old female patient with encephalopathy. She is a 33-year-old female patient who is confused and disorganized female patient with encephalopathy and dehydration. She is very confused and disorganized. She has been in a manic state. She came on to the unit hyperverbal, irritable, agitated, yelling at nursing staff, talking badly about her one-to-one sitter saying that she is talking negatively about them, very verbally abusive, hostile, and irritable. She actually came in, she was in a [facility] at [facility]. She was walking around, trying to takeoff her clothes and run into the traffic. They brought her into the hospital, but now she is extremely manic with one-to-one sitter. Difficult to talk to her because she is so hyperverbal, confused, disorganized, extremely verbally belligerent, mood labile. PAST MEDICAL HISTORY: She has a history of acute respiratory failure apparently status post overdose, urinary tract infection, hematuria, and asthma. ALLERGIES: No known drug allergies. PSYCHOTROPIC MEDICATIONS ON ADMISSION: She has a history of taking Haldol, Prozac, Ativan, and Zyprexa. PAST PSYCHIATRIC HISTORY: She has a history of . SUBSTANCE ABUSE HISTORY: Denies any recent drug and alcohol use. FAMILY PSYCHIATRIC HISTORY: Denies. PAIN ASSESSMENT: 01/18 pain. DEVELOPMENTAL PROBLEMS: Denies. SOCIAL HISTORY: The patient lives in a facility. She lives in [facility]. Financially supported by [facility] and Medicare. MENTAL STATUS EXAMINATION: This is a 33-year-old female. Her appearance is disheveled. Attitude, irritable and agitated. Affect, guarded and restricted. Intellect, poor. Mood, depressed and anxious. Motor activity, psychomotor agitation. Attention span is poor. Orientation x2. Speech is pressured. Thought process, disorganized and illogical. Insight and judgment is poor. DIAGNOSES: 1. Schizoaffective, bipolar type rule out 2. Rule out bipolar I, manic. MEDICAL: Chronic obstructive pulmonary disease. PSYCHOSOCIAL STRESSORS: Financial. Functional impairment, severe. PLAN: I am going to start this patient on lithium 300 mg twice a day to help stabilize her mood and Zyprexa 10 mg three times a day to reduce agitation and psychosis. I will also continue her on Lamictal 100 mg daily, also mood stabilizer. Provide her with 20 minutes of cognitive behavioral therapy to help her identify automatic negative thoughts and help her convert those negative thoughts to more positive thoughts to reduce depression, anxiety, and suicidality. Also, Ativan 1 mg every 6 hours p.r.n. anxiety and agitation. Chart reviewed. Discussed with staff. Seen and assessed in her room. Mary Bond M.D. DR: DANII JOB#: [id number] CC:
--- NOTE | 2019-07-28 18:55 | NUR ---
HAND-OFF: Report given to Alyssa.
--- NOTE | 2019-07-28 19:31 | NUR ---
NURSE NOTES: Received patient in bed, asleep, sitter is at bedside for 1:1 observation. Call light is within reach, bed is lowered, locked and alarm is on, will continue to asses for comfort and safety.
[2019-07-28 20:00] VITALS: BP 114/68
[2019-07-29] MEDS: LORazepam 1mg tab ORAL SCH ×5 (00:07→21:34)
[2019-07-29 00:39] VITALS: BP 125/74
[2019-07-29 04:00] VITALS: BP 118/68
--- NOTE | 2019-07-29 04:30 | NUR ---
NURSE NOTES: Patient walked out of her room, sitter was unable to stop her, as the patient was hysterical and wanted to get to the elevator, patient was screaming " i need to get to confucianist", security was called, patient was safely escorted back to her room.
[2019-07-29] MEDS: NovoLOG Insulin Flexpen SUBQ SCH ×4 (05:58→21:00)
--- NOTE | 2019-07-29 07:28 | NUR ---
HAND-OFF: Report given to Hanny ROSAS.
--- NOTE | 2019-07-29 07:57 | NUR ---
NURSE NOTES:Patient is alert oriented ,sitting up in bed and eating breakfast,watching television.Sitter at bedside,call light within reach,bed alarm is on.
[2019-07-29] MEDS: Heparin 5000 units/ml inj SUBQ SCH ×2 (08:46→21:00)
[2019-07-29] MEDS: metFORMIN 500mg tab ORAL SCH ×2 (08:47→18:00)
[2019-07-29] MEDS: OLANZapine 10mg tab ORAL SCH ×3 (08:49→18:00)
--- NOTE | 2019-07-29 12:56 | Pulmonology Progress Note ---
Assessment/Plan Problems: (1) Acute psychosis (2) Schizophrenia (3) Hypersexuality Assessment/Plan symptomatic treatment psych evaluation appreciated dc planning Subjective ROS Limited/Unobtainable: No Constitutional: Reports: no symptoms HEENT: Repors: no symptoms Allergies: Coded Allergies: No Known Allergies (Unverified , 03/08/18) Objective Last 24 Hour Vital Signs Date Time Temp Pulse Resp B/P (MAP) Pulse Ox O2 Delivery O2 Flow Rate FiO2 07/29/19 10:36 Room Air 07/29/19 04:00 97.7 67 18 118/68 (85) 07/29/19 00:39 98.6 69 18 125/74 (91) 07/28/19 21:04 Room Air 07/28/19 20:00 68 18 95 Room Air 21 07/28/19 20:00 98.0 65 18 114/68 (83) 07/28/19 16:29 98 07/28/19 16:10 98.8 76 18 118/79 (92) Intake and Output 07/28/19 07/29/19 19:00 07:00 Intake Total 1800 ml Balance 1800 ml Other 1800 ml Objective very flirtatious behavior General Appearance: WD/WN HEENT: normocephalic Respiratory/Chest: chest wall non-tender, lungs clear Abdomen: non distended Genitourinary: normal external genitalia Skin: no rash Current Medications Medications (Trade) Dose Ordered Sig/Melissa Route PRN Reason Start Time Stop Time Status Last Admin Dose Admin Acetaminophen (Tylenol) 650 mg Q4H PRN ORAL fever 07/26/19 15:15 08/25/19 15:14 Albuterol Sulfate (Proventil MDI) 2 puff Q6H PRN INH Shortness of Breath 07/27/19 06:58 08/26/19 06:57 Dextrose (Dextrose 50%) 25 ml Q30M PRN IV Hypoglycemia 07/26/19 15:15 08/25/19 15:14 Dextrose (Dextrose 50%) 50 ml Q30M PRN IV Hypoglycemia 07/26/19 15:15 08/25/19 15:14 Fluoxetine HCl (PROzac) 20 mg DAILY ORAL 07/27/19 09:00 08/26/19 08:59 07/29/19 08:54 Haloperidol Lactate (Haldol) 5 mg Q6H PRN IM Agitation 07/26/19 15:15 08/25/19 15:14 Heparin Sodium (Porcine) (Heparin 5000 units/ml) 5,000 units EVERY 12 HOURS SUBQ 07/26/19 21:00 08/25/19 20:59 Insulin Aspart (NovoLOG) BEFORE MEALS AND HS SUBQ 07/26/19 16:30 08/25/19 16:29 Lamotrigine (LaMICtal) 100 mg DAILY ORAL 07/27/19 09:00 08/26/19 08:59 07/29/19 08:54 Wood Carbonate (Wood Carbonate) 300 mg Q8HR ORAL 07/28/19 22:00 08/27/19 21:59 07/29/19 05:06 Lorazepam (Ativan 2mg/ml 1ml) 0.5 mg Q4H PRN IV For Anxiety 07/26/19 15:15 08/02/19 15:14 Lorazepam (Ativan) 1 mg EVERY 6 HOURS ORAL 07/28/19 18:00 08/02/19 20:59 07/29/19 12:17 Metformin HCl (Glucophage) 500 mg TWICE A DAY ORAL 07/26/19 18:00 08/25/19 17:59 07/28/19 17:16 Morphine Sulfate (Morphine Sulfate) 1 mg Q4H PRN IVP For Pain 07/26/19 15:15 08/02/19 15:14 Olanzapine (ZyPREXA) 10 mg TID ORAL 07/28/19 18:00 08/27/19 17:59 07/28/19 17:16 Ondansetron HCl (Zofran) 4 mg Q6H PRN IVP Nausea & Vomiting 07/26/19 15:15 08/25/19 15:14 Polyethylene Glycol (Miralax) 17 gm HSPRN PRN ORAL Constipation 07/26/19 15:15 08/25/19 15:14 Zolpidem Tartrate (Ambien) 5 mg HSPRN PRN ORAL Insomnia 07/26/19 15:15 08/02/19 15:14 Monik Blood MD Jul 29, 2019 12:56
--- NOTE | 2019-07-29 13:00 | NUR ---
*-* NO INSURANCE INFORMATION IN THE BAR UNABLE TO SEND CLINICALS OR REVIEWS *-*
--- NOTE | 2019-07-29 13:11 | NUR ---
Social Service Note KANDY contacted [facility] [phone] no beds. KANDY has left patient's conservator Isela Heads [phone] multiple messages with no return call. KANDY spoke with Cheo Cerda [phone] if he had any additional phone numbers for Isela. He states this was the only number and would attempt to contact Isela as well. Will continue to follow up.
--- NOTE | 2019-07-29 14:13 | General Progress Note ---
Assessment/Plan Problem List: (1) Asthma ICD Codes: J45.909 - Unspecified asthma, uncomplicated SNOMED: 250336705 (2) UTI (urinary tract infection) ICD Codes: N39.0 - Urinary tract infection, site not specified SNOMED: 20255446 (3) LYNNE (acute kidney injury) ICD Codes: N17.9 - Acute kidney failure, unspecified SNOMED: 27913690 (4) Schizophrenia ICD Codes: F20.9 - Schizophrenia, unspecified SNOMED: 74386000 Status: unchanged Assessment/Plan: abx psyc tx cbc bmp am dc to psyc Subjective Constitutional: Reports: weakness Allergies: Coded Allergies: No Known Allergies (Unverified , 03/08/18) All Systems: reviewed and negative except above Subjective confused in bed Objective Last 24 Hour Vital Signs Date Time Temp Pulse Resp B/P (MAP) Pulse Ox O2 Delivery O2 Flow Rate FiO2 07/29/19 10:36 Room Air 07/29/19 04:00 97.7 67 18 118/68 (85) 07/29/19 00:39 98.6 69 18 125/74 (91) 07/28/19 21:04 Room Air 07/28/19 20:00 68 18 95 Room Air 21 07/28/19 20:00 98.0 65 18 114/68 (83) 07/28/19 16:29 98 07/28/19 16:10 98.8 76 18 118/79 (92) Intake and Output 07/28/19 07/29/19 19:00 07:00 Intake Total 1800 ml Balance 1800 ml Other 1800 ml Height (Feet): 5 Height (Inches): 8.00 Weight (Pounds): 193 General Appearance: confused EENT: normal ENT inspection Neck: normal alignment Cardiovascular: normal peripheral pulses, normal rate, regular rhythm Respiratory/Chest: chest wall non-tender, lungs clear, normal breath sounds Abdomen: normal bowel sounds, non tender, soft Extremities: normal inspection Edema: no edema noted Arm (L), no edema noted Arm (R), no edema noted Leg (L), no edema noted Leg (R), no edema noted Pedal (L), no edema noted Pedal (R), no edema noted Generalized Neurologic: motor weakness Skin: normal pigmentation, warm/dry Kenneth Bateman DO Jul 29, 2019 14:12
--- NOTE | 2019-07-29 15:45 | Progress Note ---
DATE: 07/29/2019 SUBJECTIVE: This is a 33-year-old female patient. She is a female patient who is 33-year-old with encephalopathy, but she has got increased confusion, disorganized thought process, extreme mood lability. She was extremely manic, hostile, verbally abusive with staff. Continues one-to-one sitter. MENTAL STATUS EXAMINATION: This is a 33-year-old female patient. Appearance is disheveled. Attitude, irritable and agitated. Affect, guarded and restricted. Insight and judgment is poor. DIAGNOSIS: Schizoaffective, bipolar type. PLAN: Treat with Zyprexa 10 three times a day, lithium 300 mg twice a day, Lamictal 100 mg daily, Ativan 1 every 6 hours p.r.n. anxiety and agitation. 20 minutes of cognitive behavioral therapy to help her identify automatic negative thoughts and help her convert negative thoughts to more positive thoughts to reduce depression, anxiety, and suicidality. Chart reviewed. Discussed with staff. Seen and assessed at bedside. 20 minutes of cognitive behavioral therapy provided. Mary Bond M.D. DR: LIDYA JOB#: [id number] CC:
--- NOTE | 2019-07-29 15:56 | NUR ---
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 97.7 HR 67 RR 18 B/P 118/68 IS: LITHIUM PO ZYPREXA PO HEPARIN SUBC METFORMIN PO MED/SURG STATUS
--- NOTE | 2019-07-29 18:18 | NUR ---
Social Service Note KANDY spoke with Isela Heads [phone] who will bring a copy of patient's conservatorship documents. Documents to be placed on patient's chart. Isela is in agreement with inpatient psychiatric care. Isela states patient has had a previous stay at [facility] for psychiatric care. Will follow up in am.
--- NOTE | 2019-07-29 18:56 | NUR ---
NURSE NOTES patient resting,quiet,watching Television.sitter in room.Bed alarm is on,call light within reach.Patient has refused some of her medication,patient state she will not take until she talks to DR Bond. Refusing accuchecks.
--- NOTE | 2019-07-29 19:49 | NUR ---
HAND-OFF: Report given to LISA RN.
[2019-07-29 20:00] VITALS: BP 101/54
--- NOTE | 2019-07-29 20:34 | NUR ---
NURSE NOTES: RECEIVED OT FROM RALPH VILLANUEVA. PT IS AWAKE, AAOX3, ON ROOM AIR, NO ACUTE DISTRESS NOTED. PT IS CALM AND COOPERATIVE. NO BEHAVIORS NOTED AT THE MOMENT. GEOVANYRUSSELL IS AT BEDSIDE. IV ON LEFT HAND 22G IS INTACT AND PATENT. BED IS LOCKED AT THE LOWEST POSITION, BED ALARMS ACTIVE, SIDE RAILS UP X2 AND CALL LIGHT IS WITHIN REACH. WILL CONTINUE TO MONITOR.
[2019-07-30 04:00] VITALS: BP 116/67
[2019-07-30] MEDS: LORazepam 1mg tab ORAL SCH ×4 (06:00→18:36)
[2019-07-30] MEDS: NovoLOG Insulin Flexpen SUBQ SCH ×4 (06:30→21:00)
--- NOTE | 2019-07-30 07:04 | NUR ---
NURSE NOTES: PT REFUSED ALL CARE, LABS AND ALL MEDS. PT EXHIBITS BEHAVIORS. SCREAMING AND CURSING AT STAFF, ALSO LAUGHING AND CRYING UNCONTROLLABLY.
--- NOTE | 2019-07-30 07:07 | NUR ---
HAND-OFF: Report given to RALPH VILLANUEVA.
--- NOTE | 2019-07-30 07:39 | NUR ---
NURSE NOTES: Patient is awake and alert,sitting up in bed ate breakfast.Patient on cell ohone laughing loudly,talking in a loud voice.Sitter at bedside.Bed alarm is on,call light within reach.
[2019-07-30] MEDS: Heparin 5000 units/ml inj SUBQ SCH ×2 (09:00→21:00)
[2019-07-30] MEDS: metFORMIN 500mg tab ORAL SCH ×2 (09:00→18:00)
[2019-07-30] MEDS: OLANZapine 10mg tab ORAL SCH ×3 (09:00→18:00)
--- NOTE | 2019-07-30 10:20 | NUR ---
Social Service Note Patient's conservator Isela Heads brought conservatorship paperwork to the unit last night. SW contacted the following facilities for transfer: [facility] [phone] (p) [phone] (f) referral fax [facility] [phone] (p) [phone] (f) referral fax [facility] [phone] (P) [phone] (F) referral fax [facility] [phone] are not accepting conserved patient's at this time. [facility] [phone] no female beds [facility] [phone] no female beds [facility] [phone] no female beds [facility] [phone] [facility] full [facility] [phone] no female beds [facility] [phone] message left for surgical services coordinator Osiris Porter [phone] no female beds Will continue to monitor and follow up. Addendum: 07/30/19 at 1540 by CHELSIE SERRANO Additional information faxed to [facility] [phone].
[2019-07-30 12:00] VITALS: BP 118/70
--- NOTE | 2019-07-30 12:08 | General Progress Note ---
Assessment/Plan Problem List: (1) Asthma ICD Codes: J45.909 - Unspecified asthma, uncomplicated SNOMED: 791401619 (2) UTI (urinary tract infection) ICD Codes: N39.0 - Urinary tract infection, site not specified SNOMED: 48883149 (3) LYNNE (acute kidney injury) ICD Codes: N17.9 - Acute kidney failure, unspecified SNOMED: 98762744 (4) Schizophrenia ICD Codes: F20.9 - Schizophrenia, unspecified SNOMED: 19339507 Status: unchanged Assessment/Plan: abx psyc tx cbc bmp am dc to psyc Subjective Constitutional: Reports: weakness Allergies: Coded Allergies: No Known Allergies (Unverified , 03/08/18) All Systems: reviewed and negative except above Subjective confused in bed Objective Last 24 Hour Vital Signs Date Time Temp Pulse Resp B/P (MAP) Pulse Ox O2 Delivery O2 Flow Rate FiO2 07/30/19 09:02 67 20 95 Room Air 21 07/30/19 04:00 97.9 64 20 116/67 (83) 96 07/29/19 21:35 69 18 96 Room Air 21 07/29/19 21:00 Room Air 07/29/19 20:00 97.2 67 20 101/54 (70) 95 Intake and Output 07/29/19 07/30/19 19:00 07:00 Intake Total 600 ml Balance 600 ml Intake Oral 600 ml # Voids 3 3 Height (Feet): 5 Height (Inches): 8.00 Weight (Pounds): 193 General Appearance: lethargic, confused EENT: normal ENT inspection Neck: normal alignment Cardiovascular: normal peripheral pulses, normal rate, regular rhythm Respiratory/Chest: chest wall non-tender, lungs clear, normal breath sounds Abdomen: normal bowel sounds, non tender, soft Extremities: normal inspection Edema: no edema noted Arm (L), no edema noted Arm (R), no edema noted Leg (L), no edema noted Leg (R), no edema noted Pedal (L), no edema noted Pedal (R), no edema noted Generalized Neurologic: motor weakness Skin: normal pigmentation, warm/dry Kenneth Bateman DO Jul 30, 2019 12:08
--- NOTE | 2019-07-30 12:35 | Pulmonology Progress Note ---
Assessment/Plan Problems: (1) Acute psychosis (2) Schizophrenia (3) Hypersexuality Assessment/Plan symptomatic treatment psych evaluation appreciated dc planning Subjective ROS Limited/Unobtainable: No Constitutional: Reports: no symptoms HEENT: Repors: no symptoms Allergies: Coded Allergies: No Known Allergies (Unverified , 03/08/18) Objective Last 24 Hour Vital Signs Date Time Temp Pulse Resp B/P (MAP) Pulse Ox O2 Delivery O2 Flow Rate FiO2 07/30/19 09:02 67 20 95 Room Air 21 07/30/19 04:00 97.9 64 20 116/67 (83) 96 07/29/19 21:35 69 18 96 Room Air 21 07/29/19 21:00 Room Air 07/29/19 20:00 97.2 67 20 101/54 (70) 95 Intake and Output 07/29/19 07/30/19 19:00 07:00 Intake Total 600 ml Balance 600 ml Intake Oral 600 ml # Voids 3 3 Objective very flirtatious behavior General Appearance: WD/WN HEENT: normocephalic, mucous membranes moist Respiratory/Chest: normal breath sounds Cardiovascular: regularly irregular Abdomen: soft, non tender Extremities: no cyanosis Current Medications Medications (Trade) Dose Ordered Sig/Melissa Route PRN Reason Start Time Stop Time Status Last Admin Dose Admin Acetaminophen (Tylenol) 650 mg Q4H PRN ORAL fever 07/26/19 15:15 08/25/19 15:14 Albuterol Sulfate (Proventil MDI) 2 puff Q6H PRN INH Shortness of Breath 07/27/19 06:58 08/26/19 06:57 Dextrose (Dextrose 50%) 25 ml Q30M PRN IV Hypoglycemia 07/26/19 15:15 08/25/19 15:14 Dextrose (Dextrose 50%) 50 ml Q30M PRN IV Hypoglycemia 07/26/19 15:15 08/25/19 15:14 Fluoxetine HCl (PROzac) 20 mg DAILY ORAL 07/27/19 09:00 08/26/19 08:59 07/30/19 09:20 Haloperidol Lactate (Haldol) 5 mg Q6H PRN IM Agitation 07/26/19 15:15 08/25/19 15:14 Heparin Sodium (Porcine) (Heparin 5000 units/ml) 5,000 units EVERY 12 HOURS SUBQ 07/26/19 21:00 08/25/19 20:59 Insulin Aspart (NovoLOG) BEFORE MEALS AND HS SUBQ 07/26/19 16:30 08/25/19 16:29 Lamotrigine (LaMICtal) 100 mg DAILY ORAL 07/27/19 09:00 08/26/19 08:59 07/30/19 09:20 [place] Carbonate ([place] Carbonate) 300 mg Q8HR ORAL 07/28/19 22:00 08/27/19 21:59 07/29/19 05:06 Lorazepam (Ativan 2mg/ml 1ml) 0.5 mg Q4H PRN IV For Anxiety 07/26/19 15:15 08/02/19 15:14 Lorazepam (Ativan) 1 mg EVERY 6 HOURS ORAL 07/28/19 18:00 08/02/19 20:59 07/29/19 18:23 Metformin HCl (Glucophage) 500 mg TWICE A DAY ORAL 07/26/19 18:00 08/25/19 17:59 07/28/19 17:16 Morphine Sulfate (Morphine Sulfate) 1 mg Q4H PRN IVP For Pain 07/26/19 15:15 08/02/19 15:14 Olanzapine (ZyPREXA) 10 mg TID ORAL 07/28/19 18:00 08/27/19 17:59 07/28/19 17:16 Ondansetron HCl (Zofran) 4 mg Q6H PRN IVP Nausea & Vomiting 07/26/19 15:15 08/25/19 15:14 Polyethylene Glycol (Miralax) 17 gm HSPRN PRN ORAL Constipation 07/26/19 15:15 08/25/19 15:14 Zolpidem Tartrate (Ambien) 5 mg HSPRN PRN ORAL Insomnia 07/26/19 15:15 08/02/19 15:14 Monik Blood MD Jul 30, 2019 12:35
--- NOTE | 2019-07-30 16:00 | Progress Note ---
DATE: 07/30/2019 SUBJECTIVE: This is a 33-year-old female patient with encephalopathy. She continues to have some mood lability and confusion, extremely manic and decline in cognition below baseline. That is why she does require inpatient treatment at this time. MENTAL STATUS EXAMINATION: She is a 33-year-old female patient. Her appearance is disheveled. Her attitude is irritable and agitated. Her affect is guarded and restricted. Intellect is poor. Her mood is depressed and anxious. Motor activity, psychomotor agitation. Attention span is poor. Orientation x2. Speech is pressured. Thought process, disorganized and illogical. Insight and judgment is poor. DIAGNOSIS: Schizoaffective, bipolar type. PLAN: Treat her with Lamictal 100 mg daily and then also lithium, it was 300 mg q.8 h. Also, Zyprexa 10 mg three times a day, Prozac 20 mg daily and provided with 20 minutes of cognitive behavioral therapy to help identify automatic negative thoughts and help her convert negative thoughts to more positive thoughts to reduce depression, anxiety, suicidality, and also Ativan 1 mg every 6 hours p.r.n. anxiety and agitation. Chart reviewed. Discussed with staff. Seen and assessed at bedside. A 20 minutes of cognitive behavioral therapy provided. Mary Bond M.D. DR: NOAH JOB#: [id number] CC:
--- NOTE | 2019-07-30 16:48 | NUR ---
NURSE NOTES: DR Mcgregor saw patient today. made aware that she has been refusing some of her medications.After spoke with patient,patient agree she would take her medications.Patient again at this time refuses accuchecks,refuse to take Metformin.
--- NOTE | 2019-07-30 17:01 | NUR ---
Social Service Note [facility] is continues to review documentation. Nursing station phone number provided.
--- NOTE | 2019-07-30 18:38 | NUR ---
NURSE NOTES: Patient resting,quiet,watching television.patient refusing metformin,patient state she is not diabetic,patient refuse to take Zyprexa.Sitter in the room,call light within reach.
--- NOTE | 2019-07-30 19:30 | NUR ---
HAND-OFF: Report given to Ursula ROSAS.
--- NOTE | 2019-07-30 19:58 | NUR ---
NURSE NOTES: Received patient in bed, awake, hysterically laughing, being inappropriate with her behavior, sitter 1:1 at bedside. Call light is within reach, bed is lowered, locked and alarm is on. Will continue to monitor for comfort and safety.
[2019-07-30 20:00] VITALS: BP 124/73
[2019-07-31] VITALS: BP 109/68
[2019-07-31] MEDS: LORazepam 1mg tab ORAL SCH ×4 (00:23→17:03)
[2019-07-31 04:00] VITALS: BP 114/67
[2019-07-31] MEDS: NovoLOG Insulin Flexpen SUBQ SCH ×4 (05:37→21:00)
--- NOTE | 2019-07-31 07:32 | NUR ---
HAND-OFF: Report given to Jeovany ROSAS.
[2019-07-31 08:00] VITALS: BP 118/92
[2019-07-31] MEDS: metFORMIN 500mg tab ORAL SCH ×2 (08:18→17:03)
[2019-07-31] MEDS: OLANZapine 10mg tab ORAL SCH ×3 (08:18→17:04)
[2019-07-31] MEDS: Heparin 5000 units/ml inj SUBQ SCH ×2 (08:22→21:00)
--- NOTE | 2019-07-31 08:32 | NUR ---
NURSE NOTES: RN ENTERED ROOM, PT WAS SINGING LOUDLY. PT DEMANDS FOR 5 PACKETS OF SUGAR AND MANY ORANGE JUICES.RN ATTEMPTED TO EDUCATE ON DIABETES MANAGEMENT BUT PT NOT RECEPTIVE TO EDUCATION. PT YELLS OVER NURSE "I AM NOT DIABETIC! I DON'T WANT ANYTHING WITH NEEDLES! I WILL DENG YOU!". SITTER AT BEDSIDE. IN NO APPARENT DISTRESS AT THIS TIME. WILL CONTINUE TO MONITOR.
--- NOTE | 2019-07-31 10:30 | Consultation ---
DATE OF CONSULTATION: 07/30/2019 NOTE: POOR AUDIO PSYCHOTHERAPY CONSULTATION PROGRESS NOTE CONSULTING PHYSICIAN: Feroz Mcgregor PsyD. TREATING ATTENDING PHYSICIAN: Kenneth Bateman D.O. HISTORY OF PRESENT ILLNESS: This is a 33-year-old female patient. She is from [facility]. The patient was diagnosed with schizoaffective disorder. She has been disheveled, disoriented, cursing, disrobing, hypersexual, and for these reasons, she was referred for psychotherapeutic services. dehydration. . The patient is manic, very anxious, agitated, hyperverbal, unable to care for her basic needs. She has been refusing medication although she is concerned she has been very agitated, and at this time has no logical or viable plan for safety and self-care. . When I assessed the patient, the patient remains hyperverbal thought, scattered, and tangential. She states she does not need any medication because she was . She relapses herself uncontrollably. Talks to herself. PAST MEDICAL HISTORY: Asthma and DVT. ALLERGIES: The patient has no known drug allergies. SUBSTANCE ABUSE HISTORY: There is indication of alcohol use and smoking cigarettes. The patient denies history of illicit substance use. PSYCHIATRIC HISTORY: There is no history of schizophrenia. . SOCIAL HISTORY: The patient is a 33-year-old female from [facility]. Financially sustained through [facility]. MENTAL STATUS EXAMINATION: She is alert and oriented to person and place. Her mood is anxious. Affect is labile. Thought process, disorganized. Thought content, delusional and . Poor insight, judgment, and impulse control. DIAGNOSIS: Paranoid schizophrenia. TODAY I ASSESSED THIS PATIENT. I PROVIDED THE PATIENT WITH: 1. Reality orientation, which focuses on improving cognitive function of the patient who is confused and disorganized. Orientation to patient, person, place, time, and situation. 2. Supportive psychotherapy, which provides the patient positive communication skills. She is hyperverbal, hypersexual, agitated. Therefore cognitive behavioral therapy which is focused on positive coping skills including positive maintain medication compliance positive coping skills . Psychotherapy provided the patient 50 minutes. This clinician has reviewed the patient's chart. Discussed treatment with treatment team. Feroz Mcgregor PsyD. DR: ERNESTO JOB#: [id number] CC:
[2019-07-31 12:00] VITALS: BP 99/69
--- NOTE | 2019-07-31 13:34 | NUR ---
GUIDE EXCURSIONSTAGE RIGGER SI: ENCEPHALOPATHY, DEHYDRATION T. 98.1 HR 77 RR 17 B/P 99/69 RA 99% IS: PROZAC PO ZYPREXA PO HEPARIN SUBC LITHIUM PO PSYCH PLACEMENT MED/SURG STATUS
--- NOTE | 2019-07-31 15:04 | General Progress Note ---
Assessment/Plan Problem List: (1) Asthma ICD Codes: J45.909 - Unspecified asthma, uncomplicated SNOMED: 130799832 (2) UTI (urinary tract infection) ICD Codes: N39.0 - Urinary tract infection, site not specified SNOMED: 94000533 (3) LYNNE (acute kidney injury) ICD Codes: N17.9 - Acute kidney failure, unspecified SNOMED: 21317374 (4) Schizophrenia ICD Codes: F20.9 - Schizophrenia, unspecified SNOMED: 72876619 Status: unchanged Assessment/Plan: abx psyc tx cbc bmp am dc to psyc Subjective Constitutional: Reports: weakness Allergies: Coded Allergies: No Known Allergies (Unverified , 03/08/18) All Systems: reviewed and negative except above Subjective confused in bed Objective Last 24 Hour Vital Signs Date Time Temp Pulse Resp B/P (MAP) Pulse Ox O2 Delivery O2 Flow Rate FiO2 07/31/19 12:00 98.1 77 17 99/69 (79) 99 07/31/19 09:00 Room Air 07/31/19 08:00 97.7 90 18 118/92 (101) 100 07/31/19 07:56 89 20 98 Room Air 21 07/31/19 04:00 97.9 69 18 114/67 (83) 99 07/31/19 00:00 97.6 72 18 109/68 (82) 99 07/30/19 21:00 Room Air 07/30/19 20:16 73 20 97 Room Air 21 07/30/19 20:00 98.9 77 18 124/73 (90) 97 Intake and Output 07/30/19 07/31/19 19:00 07:00 Intake Total 1320 ml 240 ml Balance 1320 ml 240 ml Intake Oral 1320 ml 240 ml # Voids 5 4 # Bowel Movements 1 Height (Feet): 5 Height (Inches): 8.00 Weight (Pounds): 193 General Appearance: lethargic EENT: normal ENT inspection Neck: normal alignment Cardiovascular: normal peripheral pulses, normal rate, regular rhythm Respiratory/Chest: chest wall non-tender, lungs clear, normal breath sounds Abdomen: normal bowel sounds, non tender, soft Extremities: normal inspection Edema: no edema noted Arm (L), no edema noted Arm (R), no edema noted Leg (L), no edema noted Leg (R), no edema noted Pedal (L), no edema noted Pedal (R), no edema noted Generalized Neurologic: motor weakness Skin: normal pigmentation, warm/dry Kenneth Bateman DO Jul 31, 2019 15:03
--- NOTE | 2019-07-31 15:12 | NUR ---
Social Service Note KANDY spoke with Sharon at [facility] [phone] regarding acceptance of patient into there inpatient psychiatric unit. Sharon is attempting to construction equipment mechanic conservator for signatures for [facility]/treatment of patient. KANDY left [facility] [phone] a message as well. [place] level needs to be drawn and faxed to [phone]. KANDY discussed with charge nurse. [facility] is aware patient will be accepted under Dr. Bateman and Dr. Bond. Will continue to follow up.
--- NOTE | 2019-07-31 15:14 | NUR ---
*-* NO INSURANCE INFORMATION IN THE BAR UNABLE TO SEND CLINICALS OR REVIEWS *-*
--- NOTE | 2019-07-31 15:39 | NUR ---
NURSE NOTES: PT REFUSING LAB DRAW FOR LITHIUM.
--- NOTE | 2019-07-31 15:43 | Pulmonology Progress Note ---
Assessment/Plan Problems: (1) Acute psychosis (2) Schizophrenia (3) Hypersexuality Assessment/Plan no new complian symptomatic treatment psych evaluation appreciated dc planning pt is medically cleared to be transferred to a psychiatry facility Subjective ROS Limited/Unobtainable: No Constitutional: Reports: no symptoms HEENT: Repors: no symptoms Allergies: Coded Allergies: No Known Allergies (Unverified , 03/08/18) Objective Last 24 Hour Vital Signs Date Time Temp Pulse Resp B/P (MAP) Pulse Ox O2 Delivery O2 Flow Rate FiO2 07/31/19 12:00 98.1 77 17 99/69 (79) 99 07/31/19 09:00 Room Air 07/31/19 08:00 97.7 90 18 118/92 (101) 100 07/31/19 07:56 89 20 98 Room Air 21 07/31/19 04:00 97.9 69 18 114/67 (83) 99 07/31/19 00:00 97.6 72 18 109/68 (82) 99 07/30/19 21:00 Room Air 07/30/19 20:16 73 20 97 Room Air 21 07/30/19 20:00 98.9 77 18 124/73 (90) 97 Intake and Output 07/30/19 07/31/19 19:00 07:00 Intake Total 1320 ml 240 ml Balance 1320 ml 240 ml Intake Oral 1320 ml 240 ml # Voids 5 4 # Bowel Movements 1 Objective very flirtatious behavior General Appearance: WD/WN HEENT: normocephalic, atraumatic Respiratory/Chest: chest wall non-tender, lungs clear Breasts: no masses Cardiovascular: normal peripheral pulses Abdomen: normal bowel sounds Genitourinary: normal external genitalia Neurologic/Psychiatric: land appraiser II-XII grossly normal Current Medications Medications (Trade) Dose Ordered Sig/Melissa Route PRN Reason Start Time Stop Time Status Last Admin Dose Admin Acetaminophen (Tylenol) 650 mg Q4H PRN ORAL fever 07/26/19 15:15 08/25/19 15:14 Albuterol Sulfate (Proventil MDI) 2 puff Q6H PRN INH Shortness of Breath 07/27/19 06:58 08/26/19 06:57 Dextrose (Dextrose 50%) 25 ml Q30M PRN IV Hypoglycemia 07/26/19 15:15 08/25/19 15:14 Dextrose (Dextrose 50%) 50 ml Q30M PRN IV Hypoglycemia 07/26/19 15:15 08/25/19 15:14 Fluoxetine HCl (PROzac) 20 mg DAILY ORAL 07/27/19 09:00 08/26/19 08:59 07/31/19 08:18 Haloperidol Lactate (Haldol) 5 mg Q6H PRN IM Agitation 07/26/19 15:15 08/25/19 15:14 Heparin Sodium (Porcine) (Heparin 5000 units/ml) 5,000 units EVERY 12 HOURS SUBQ 07/26/19 21:00 08/25/19 20:59 Insulin Aspart (NovoLOG) BEFORE MEALS AND HS SUBQ 07/26/19 16:30 08/25/19 16:29 Lamotrigine (LaMICtal) 100 mg DAILY ORAL 07/27/19 09:00 08/26/19 08:59 07/31/19 08:18 [place] Carbonate ([place] Carbonate) 300 mg Q8HR ORAL 07/28/19 22:00 08/27/19 21:59 07/31/19 14:09 Lorazepam (Ativan 2mg/ml 1ml) 0.5 mg Q4H PRN IV For Anxiety 07/26/19 15:15 08/02/19 15:14 Lorazepam (Ativan) 1 mg EVERY 6 HOURS ORAL 07/28/19 18:00 08/02/19 20:59 07/31/19 12:15 Metformin HCl (Glucophage) 500 mg TWICE A DAY ORAL 07/26/19 18:00 08/25/19 17:59 07/31/19 08:18 Morphine Sulfate (Morphine Sulfate) 1 mg Q4H PRN IVP For Pain 07/26/19 15:15 08/02/19 15:14 Olanzapine (ZyPREXA) 10 mg TID ORAL 07/28/19 18:00 08/27/19 17:59 07/31/19 08:18 Ondansetron HCl (Zofran) 4 mg Q6H PRN IVP Nausea & Vomiting 07/26/19 15:15 08/25/19 15:14 Polyethylene Glycol (Miralax) 17 gm HSPRN PRN ORAL Constipation 07/26/19 15:15 08/25/19 15:14 Zolpidem Tartrate (Ambien) 5 mg HSPRN PRN ORAL Insomnia 07/26/19 15:15 08/02/19 15:14 Monik Blood MD Jul 31, 2019 15:43
[2019-07-31 16:00] VITALS: BP 117/66
--- NOTE | 2019-07-31 17:17 | NUR ---
Social Service Note [facility] will not accept patient without lithium level. Recommendation to obtain authorization from conservator to restraint patient for blood draw. Will monitor.
--- NOTE | 2019-07-31 19:31 | NUR ---
HAND-OFF: Report given to Polina MAYO RN.
[2019-07-31 20:00] VITALS: BP 121/62
--- NOTE | 2019-07-31 20:42 | NUR ---
NURSE NOTES: RECEIVED PT FROM RALPH MENDOZA. PT IS CALMLY ASLEEP, ON ROOM AIR, NO ACUTE DISTRESS NOTED. IV ON LEFT HANG 24G IS INTACT AND PATENT. SITTER CHERY FRANCOIS AT BEDSIDE. BED IS LOCKED AND LOW, BED ALARMS ACTIVE, SIDE RAILS UP X2 AND CALL LIGHT IS WITHIN REACH. WILL CONTINUE TO MONITOR.
[2019-08-01] VITALS: BP 101/75
[2019-08-01] MEDS: LORazepam 1mg tab ORAL SCH ×5 (00:12→22:42)
--- NOTE | 2019-08-01 03:30 | Progress Note ---
DATE: 07/31/2019 SUBJECTIVE: Coty is a 33-year-old female patient with encephalopathy. She is confused and disorganized. She has got no logical plan for own self-care. She is still very manic. Mood labile. She is refusing medications, but she is psychiatric illness. That is why, she walks into the room. The patient is disheveled appearing, hyperverbal. MENTAL STATUS EXAMINATION: This is a 33-year-old female. Appearance is disheveled. Attitude, irritable and agitated. Affect, guarded and restricted. Intellect poor. Mood depressed and anxious. Motor activity, psychomotor agitation. Attention span is poor. Orientation x2. Speech is pressured. Thought process, disorganized and illogical. Insight and judgment is poor. DIAGNOSIS: Schizoaffective, bipolar type. PLAN: Treat her with Zyprexa 10 mg three times a day, lithium 300 twice a day, Lamictal 100 mg a day, and Ativan 1 every 6 hours p.r.n. anxiety and agitation. Provided with 20 minutes of cognitive behavioral therapy to help identify automatic negative thoughts and help her convert negative thoughts to more positive thoughts to reduce depression, anxiety, and suicidality. A 20 minutes of cognitive behavioral therapy provided to help her have a more adaptive behavioral pattern. Chart reviewed. Discussed with staff. The patient is seen and assessed at bedside. Mary Bond M.D. DR: BETHANY JOB#: [id number] CC:
[2019-08-01 04:00] VITALS: BP 110/69
[2019-08-01] MEDS: NovoLOG Insulin Flexpen SUBQ SCH ×4 (05:44→21:00)
--- NOTE | 2019-08-01 07:18 | NUR ---
HAND-OFF: Report given to RALPH Thayer. Pt is in stable condition, VSS. Endorsed the plan of care.
[2019-08-01 07:56] VITALS: BP 114/71
[2019-08-01] MEDS: metFORMIN 500mg tab ORAL SCH ×2 (08:07→17:07)
[2019-08-01] MEDS: OLANZapine 10mg tab ORAL SCH ×3 (08:08→17:08)
[2019-08-01] MEDS: Heparin 5000 units/ml inj SUBQ SCH ×2 (08:09→21:00)
[2019-08-01 08:17] LABS: BASOPHILS % (AUTO) 1.1 % (0.0-2.0); EOSINOPHILS % (AUTO) 7.1 % (0.0-3.0); HEMATOCRIT 45.4 % (37.0-47.0); HEMOGLOBIN 15.1 G/DL (12.0-16.0); LYMPHOCYTES % (AUTO) 46.7 % (20.0-45.0); MEAN CORPUSCULAR VOLUME 93 FL (80-99); MONOCYTES % (AUTO) 6.9 % (1.0-10.0); NEUTROPHILS % (AUTO) 38.3 % (45.0-75.0); PLATELET COUNT 414 K/UL (150-450); RED BLOOD COUNT 4.87 M/UL (4.20-5.40); RED CELL DISTRIBUTION WIDTH 11.8 % (11.6-14.8); WHITE BLOOD COUNT 7.8 K/UL (4.8-10.8)
--- NOTE | 2019-08-01 09:00 | NUR ---
NURSE NOTES: PT CALM, RESTING IN BED. INTERMITTENT OUTBURSTS OF CRYING OR YELLING. SITTER AT BEDSIDE. IN NO APPARENT DISTRESS. PT CONTINUES TO REFUSE LAB DRAWS AND BLOOD SUGAR CHECKS.
[2019-08-01 12:55] VITALS: BP 108/69
[2019-08-01 16:00] VITALS: BP 110/70
--- NOTE | 2019-08-01 16:28 | General Progress Note ---
Assessment/Plan Problem List: (1) Asthma ICD Codes: J45.909 - Unspecified asthma, uncomplicated SNOMED: 293625676 (2) UTI (urinary tract infection) ICD Codes: N39.0 - Urinary tract infection, site not specified SNOMED: 68654519 (3) LYNNE (acute kidney injury) ICD Codes: N17.9 - Acute kidney failure, unspecified SNOMED: 19496936 (4) Schizophrenia ICD Codes: F20.9 - Schizophrenia, unspecified SNOMED: 53702884 Status: unchanged Assessment/Plan: abx psyc tx dc to psyc Subjective Constitutional: Reports: weakness Allergies: Coded Allergies: No Known Allergies (Unverified , 03/08/18) All Systems: reviewed and negative except above Subjective confused in bed Objective Last 24 Hour Vital Signs Date Time Temp Pulse Resp B/P (MAP) Pulse Ox O2 Delivery O2 Flow Rate FiO2 08/01/19 12:55 98.2 92 18 108/69 (82) 98 08/01/19 09:00 Room Air 08/01/19 08:23 71 18 97 Room Air 21 08/01/19 07:56 98.0 82 18 114/71 (85) 97 08/01/19 04:00 97.7 79 18 110/69 (83) 96 08/01/19 00:00 97.3 82 18 101/75 (84) 99 07/31/19 21:00 Room Air 07/31/19 20:00 75 18 98 Room Air 21 07/31/19 20:00 98.1 75 18 121/62 (81) 98 Intake and Output 07/31/19 08/01/19 19:00 07:00 Intake Total 1200 ml 1140 ml Balance 1200 ml 1140 ml Intake Oral 1200 ml 1140 ml # Voids 6 6 # Bowel Movements 1 Laboratory Tests 08/01/19 06:00: White Blood Count 7.8, Red Blood Count 4.87, Hemoglobin 15.1, Hematocrit 45.4, Mean Corpuscular Volume 93, Mean Corpuscular Hemoglobin 30.9, Mean Corpuscular Hemoglobin Concent 33.2, Red Cell Distribution Width 11.8, Platelet Count 414, Mean Platelet Volume 5.4L, Neutrophils (%) (Auto) 38.3L, Lymphocytes (%) (Auto) 46.7H, Monocytes (%) (Auto) 6.9, Eosinophils (%) (Auto) 7.1H, Basophils (%) ( Auto) 1.1, [place] Level [Pending] Height (Feet): 5 Height (Inches): 8.00 Weight (Pounds): 193 General Appearance: lethargic EENT: normal ENT inspection Neck: normal alignment Cardiovascular: normal peripheral pulses, normal rate, regular rhythm Respiratory/Chest: chest wall non-tender, lungs clear, normal breath sounds Abdomen: normal bowel sounds, non tender, soft Edema: no edema noted Arm (L), no edema noted Arm (R), no edema noted Leg (L), no edema noted Leg (R), no edema noted Pedal (L), no edema noted Pedal (R), no edema noted Generalized Neurologic: motor weakness Skin: normal pigmentation, warm/dry Kenneth Bateman DO Aug 01, 2019 16:28
--- NOTE | 2019-08-01 16:30 | Pulmonology Progress Note ---
Assessment/Plan Problems: (1) Acute psychosis (2) Schizophrenia (3) Hypersexuality Assessment/Plan no new complian symptomatic treatment psych evaluation appreciated dc planning pt is medically cleared to be transferred to a psychiatry facility Subjective ROS Limited/Unobtainable: No Constitutional: Reports: no symptoms HEENT: Repors: no symptoms Respiratory: Reports: no symptoms Allergies: Coded Allergies: No Known Allergies (Unverified , 03/08/18) Objective Last 24 Hour Vital Signs Date Time Temp Pulse Resp B/P (MAP) Pulse Ox O2 Delivery O2 Flow Rate FiO2 08/01/19 12:55 98.2 92 18 108/69 (82) 98 08/01/19 09:00 Room Air 08/01/19 08:23 71 18 97 Room Air 21 08/01/19 07:56 98.0 82 18 114/71 (85) 97 08/01/19 04:00 97.7 79 18 110/69 (83) 96 08/01/19 00:00 97.3 82 18 101/75 (84) 99 07/31/19 21:00 Room Air 07/31/19 20:00 75 18 98 Room Air 21 07/31/19 20:00 98.1 75 18 121/62 (81) 98 Intake and Output 07/31/19 08/01/19 19:00 07:00 Intake Total 1200 ml 1140 ml Balance 1200 ml 1140 ml Intake Oral 1200 ml 1140 ml # Voids 6 6 # Bowel Movements 1 Laboratory Tests 08/01/19 06:00: White Blood Count 7.8, Red Blood Count 4.87, Hemoglobin 15.1, Hematocrit 45.4, Mean Corpuscular Volume 93, Mean Corpuscular Hemoglobin 30.9, Mean Corpuscular Hemoglobin Concent 33.2, Red Cell Distribution Width 11.8, Platelet Count 414, Mean Platelet Volume 5.4L, Neutrophils (%) (Auto) 38.3L, Lymphocytes (%) (Auto) 46.7H, Monocytes (%) (Auto) 6.9, Eosinophils (%) (Auto) 7.1H, Basophils (%) ( Auto) 1.1, [place] Level [Pending] Current Medications Medications (Trade) Dose Ordered Sig/Melissa Route PRN Reason Start Time Stop Time Status Last Admin Dose Admin Acetaminophen (Tylenol) 650 mg Q4H PRN ORAL fever 07/26/19 15:15 08/25/19 15:14 Albuterol Sulfate (Proventil MDI) 2 puff Q6H PRN INH Shortness of Breath 07/27/19 06:58 08/26/19 06:57 Dextrose (Dextrose 50%) 25 ml Q30M PRN IV Hypoglycemia 07/26/19 15:15 08/25/19 15:14 Dextrose (Dextrose 50%) 50 ml Q30M PRN IV Hypoglycemia 07/26/19 15:15 08/25/19 15:14 Fluoxetine HCl (PROzac) 20 mg DAILY ORAL 07/27/19 09:00 08/26/19 08:59 08/01/19 08:07 Haloperidol Lactate (Haldol) 5 mg Q6H PRN IM Agitation 07/26/19 15:15 08/25/19 15:14 Heparin Sodium (Porcine) (Heparin 5000 units/ml) 5,000 units EVERY 12 HOURS SUBQ 07/26/19 21:00 08/25/19 20:59 Insulin Aspart (NovoLOG) BEFORE MEALS AND HS SUBQ 07/26/19 16:30 08/25/19 16:29 Lamotrigine (LaMICtal) 100 mg DAILY ORAL 07/27/19 09:00 08/26/19 08:59 08/01/19 08:07 [place]on Carbonate (G[place]on Carbonate) 300 mg Q8HR ORAL 07/28/19 22:00 08/27/19 21:59 08/01/19 05:44 Lorazepam (Ativan 2mg/ml 1ml) 0.5 mg Q4H PRN IV For Anxiety 07/26/19 15:15 08/02/19 15:14 Lorazepam (Ativan) 1 mg EVERY 6 HOURS ORAL 07/28/19 18:00 08/02/19 20:59 08/01/19 12:40 Metformin HCl (Glucophage) 500 mg TWICE A DAY ORAL 07/26/19 18:00 08/25/19 17:59 08/01/19 08:07 Morphine Sulfate (Morphine Sulfate) 1 mg Q4H PRN IVP For Pain 07/26/19 15:15 08/02/19 15:14 Olanzapine (ZyPREXA) 10 mg TID ORAL 07/28/19 18:00 08/27/19 17:59 08/01/19 12:40 Ondansetron HCl (Zofran) 4 mg Q6H PRN IVP Nausea & Vomiting 07/26/19 15:15 08/25/19 15:14 Polyethylene Glycol (Miralax) 17 gm HSPRN PRN ORAL Constipation 07/26/19 15:15 08/25/19 15:14 Zolpidem Tartrate (Ambien) 5 mg HSPRN PRN ORAL Insomnia 07/26/19 15:15 08/02/19 15:14 Monik Blood MD Aug 01, 2019 16:30
--- NOTE | 2019-08-01 19:26 | NUR ---
HAND-OFF: Report given to Rebecca COLEMAN RN.
--- NOTE | 2019-08-01 19:45 | NUR ---
NURSE NOTES: Pt is in bed, awake and verbal. Pt gets agitated at times. Pt is very impulsive, lashes out at staff. Nancie Garcia, is at bedside to monitor patient for safety. Pt is reoriented, therapeutic communication provided. Fall precaution in place. bed alarm On. bed locked low in position,side rails up and call light within reach.
[2019-08-01 20:00] VITALS: BP 99/65
--- NOTE | 2019-08-01 21:00 | NUR ---
NURSE NOTES: Pt refuses blood sugar check and heparin 5000 unit subq despite encouragement and education.
--- NOTE | 2019-08-02 01:00 | Consultation ---
DATE OF CONSULTATION: 08/01/2019 CONSULTING PHYSICIAN: Mary oBnd M.D. HISTORY OF PRESENT ILLNESS: This is a 33-year-old female patient, still extremely mood labile, still confused and disorganized. She has got no logical plan for own self-care, feelings of helplessness and hopelessness, low energy, poor appetite, and loss of interest in activity, so she does require acute psychiatric inpatient treatment at this time, so she is extremely manic . MENTAL STATUS EXAMINATION: She is 33-year-old female. Appearance is disheveled. Attitude, irritable and agitated. Affect, guarded and restricted. Intellect poor. Mood, depressed and anxious. Motor activity, psychomotor agitation. Attention span is poor. Orientation x2. Speech is pressured. Thought process, disorganized and logical. Insight and judgment is poor. DIAGNOSIS: Bipolar 1, manic. PLAN: Treat her with lithium 300 mg twice a day, Haldol 10 three times a day, also Lamictal 100 mg daily, Ativan 1 mg every 6 hours p.r.n. anxiety and agitation. Twenty minutes of cognitive behavioral therapy provided to help her identify automatic negative thoughts and help her convert negative thoughts to more positive thoughts to reduce depression, anxiety, and suicidality. Chart reviewed. Discussed with staff. The patient is seen and assessed at bedside. Mary Bond M.D. DR: SEBAS JOB#: [id number] CC:
--- NOTE | 2019-08-02 03:45 | Progress Note ---
DATE: 08/01/2019 A 33-year-old female patient with encephalopathy. States she is still very manic, confused, herself, hypersexual, hyperverbal, extremely mood labile, irritable, agitated, and ____ to the nursing staff. Needs frequent redirection and one-to-one hospitalization. MENTAL STATUS EXAMINATION: She is a 33-year-old female patient. Her appearance is disheveled. Attitude, irritable and agitated. Affect, guarded and restricted. Intellect poor. Mood, depressed and anxious. Motor activity, psychomotor agitation. Attention is poor. Orientation x2. Speech is pressured. Thought process, disorganized and logical. Insight and judgment is poor. DIAGNOSIS: Schizoaffective, bipolar type. PLAN: Plan for this patient is to treat with Zyprexa 10 mg 3 times a day, lithium 300 mg twice a day, and Lamictal 100 mg daily, as well as Ativan 1 mg every 6 hours p.r.n. anxiety and agitation. I am also going to ____ discontinue this patient's Prozac as this may be ____ triggering her manic episode. 20 minutes of cognitive behavioral therapy was provided to help identify automatic negative thoughts and help her convert negative thoughts to more positive thoughts to reduce depression, anxiety, and suicidality. Chart reviewed. Discussed with staff. Seen and assessed in her room. Mary Bond M.D. DR: ELAYNE JOB#: [id number] CC:
--- NOTE | 2019-08-02 05:30 | NUR ---
NURSE NOTES: Pt is in bed, awake and verbal. Pt is relatively cam today. Senior Engineer Yoli was able to draw blood from her with some encouragement.
--- NOTE | 2019-08-02 05:45 | Progress Note ---
DATE: 07/31/2019 NOTE: POOR AUDIO. PSYCHOTHERAPY CONSULTATION PROGRESS NOTE TREATING ATTENDING: Kenneth Bateman M.D. HISTORY OF PRESENT ILLNESS: The patient is a 33-year-old female patient diagnosed with schizoaffective disorder, bipolar type. This patient is hyperverbal, hypersexual, restless, anxious, laughing to herself, very disorganized, and has , self-care or safety, requiring hospitalization for stabilization of symptoms, I discussed with the patient. The patient is alert and oriented to person, place, and time. Her mood is anxious. Affect is labile. Thought process delusional. She has poor attention and concentration. Poor insight and impulse control. TODAY, I PROVIDED THE PATIENT WITH: 1. Reality orientation with focus on improving cognitive function of the patient, who is very confused and disorganized. Oriented to person, place, time, and situation. 2. Provided the patient with supportive psychotherapy, which provide the patient positive coping skills, utilizing cognitive behavioral therapy with problems and emotional lability. As she is very labile, hypersexual, hyperverbal and working on relaxation exercises, breathing exercises, the patient's mood lability, the patient's impulsivity. Plan is to maintain medication compliance, positive coping skills, behaviors, psychotherapy for this patient 20 minutes. This clinician has reviewed the patient's chart and discussed treatment with treatment team. Feroz Mcgregor PsyD. DR: SAVITA JOB#: [id number] CC:
[2019-08-02] MEDS: LORazepam 1mg tab ORAL SCH ×4 (06:01→23:07)
[2019-08-02] MEDS: NovoLOG Insulin Flexpen SUBQ SCH ×4 (06:01→21:00)
--- NOTE | 2019-08-02 06:04 | NUR ---
NURSE NOTES: Pt refused 0600 AM [place] 500mg po despite encouragement and education.
--- NOTE | 2019-08-02 07:05 | NUR ---
HAND-OFF: Report given to Jeovany Osorio RN.
[2019-08-02 07:15] LABS: BLOOD UREA NITROGEN 12 mg/dL (7-18); CALCIUM 9.1 MG/DL (8.5-10.1); CARBON DIOXIDE 23 MMOL/L (21-32); CREATININE 0.9 MG/DL (0.55-1.30)
[2019-08-02 07:38] LABS: CHLORIDE 107 MMOL/L (98-107); POTASSIUM 4.3 MMOL/L (3.5-5.1); SODIUM 140 MMOL/L (136-145)
[2019-08-02 08:01] VITALS: BP 127/83
--- NOTE | 2019-08-02 08:05 | General Progress Note ---
Assessment/Plan Problem List: (1) Asthma ICD Codes: J45.909 - Unspecified asthma, uncomplicated SNOMED: 512907853 (2) UTI (urinary tract infection) ICD Codes: N39.0 - Urinary tract infection, site not specified SNOMED: 97255559 (3) LYNNE (acute kidney injury) ICD Codes: N17.9 - Acute kidney failure, unspecified SNOMED: 65638943 (4) Schizophrenia ICD Codes: F20.9 - Schizophrenia, unspecified SNOMED: 09836697 Status: unchanged Assessment/Plan: abx psyc tx dc to psyc Subjective Constitutional: Reports: weakness Allergies: Coded Allergies: No Known Allergies (Unverified , 03/08/18) All Systems: reviewed and negative except above Subjective confused in bed Objective Last 24 Hour Vital Signs Date Time Temp Pulse Resp B/P (MAP) Pulse Ox O2 Delivery O2 Flow Rate FiO2 08/01/19 21:00 Room Air 08/01/19 20:00 98.1 85 20 99/65 (76) 96 08/01/19 20:00 80 18 96 Room Air 21 08/01/19 16:00 98.0 90 20 110/70 (83) 96 08/01/19 12:55 98.2 92 18 108/69 (82) 98 08/01/19 09:00 Room Air 08/01/19 08:23 71 18 97 Room Air 21 Intake and Output 08/01/19 08/02/19 18:59 06:59 Intake Total 400 ml Balance 400 ml Intake Oral 400 ml # Voids 2 3 Laboratory Tests 08/02/19 05:30: Sodium Level 140, Potassium Level 4.3, Chloride Level 107, Carbon Dioxide Level 23, Blood Urea Nitrogen 12, Creatinine 0.9, Estimat Glomerular Filtration Rate > 60, Glucose Level 95, Calcium Level 9.1, Seffner Level [Pending] Height (Feet): 5 Height (Inches): 8.00 Weight (Pounds): 193 General Appearance: lethargic, confused EENT: normal ENT inspection Neck: normal alignment Cardiovascular: normal peripheral pulses, normal rate, regular rhythm Respiratory/Chest: chest wall non-tender, lungs clear, normal breath sounds Abdomen: normal bowel sounds, non tender, soft Extremities: normal inspection Edema: no edema noted Arm (L), no edema noted Arm (R), no edema noted Leg (L), no edema noted Leg (R), no edema noted Pedal (L), no edema noted Pedal (R), no edema noted Generalized Neurologic: motor weakness Skin: normal pigmentation, warm/dry Kenneth Bateman DO Aug 02, 2019 08:05
[2019-08-02] MEDS: OLANZapine 10mg tab ORAL SCH ×3 (09:00→17:06)
[2019-08-02] MEDS: Heparin 5000 units/ml inj SUBQ SCH ×2 (09:00→21:00)
[2019-08-02] MEDS: metFORMIN 500mg tab ORAL SCH ×2 (09:19→17:05)
[2019-08-02 11:59] VITALS: BP 115/79
--- NOTE | 2019-08-02 15:45 | Progress Note ---
DATE: 08/02/2019 SUBJECTIVE: The patient is a 33-year-old female. She is extremely manic, hyperverbal, mood labile, disheveled, disorganized, and verbally abusive. MENTAL STATUS EXAMINATION: This is a 33-year-old female. Appearance is disheveled. Attitude, irritable and agitated. Affect, guarded and restricted. Intellect, poor. Mood, depressed and anxious. Motor activity, psychomotor agitation. Attention span is poor. Orientation x2. Speech is pressured. Thought process, disorganized and illogical. Insight and judgment is poor. DIAGNOSIS: Schizoaffective, bipolar type. PLAN: Treat her with lithium 300 mg twice a day, Zyprexa 10 mg three times a day, Lamictal 100 mg a day, and Ativan 1 every 6 hours p.r.n. anxiety and agitation. A 20 minutes of cognitive behavioral therapy to help her identify automated negative thoughts and help to convert her those negative thoughts to more positive thoughts to reduce depression, anxiety, and mood lability. Chart reviewed. Discussed with staff. Seen and assessed in her room. Mary Bond M.D. DR: DANII JOB#: [id number] CC:
--- NOTE | 2019-08-02 15:53 | NUR ---
NURSE NOTES: PT AXOX4, ABLE TO FOLLOW COMMANDS. IN NO APPARENT DISTRESS AT THIS TIME. SITTER AT BEDSIDE. WILL CONTINUE TO MONITOR.
[2019-08-02 16:26] VITALS: BP 122/76
--- NOTE | 2019-08-02 19:23 | NUR ---
HAND-OFF: Report given to Rebecca COLEMAN RN.
[2019-08-02 20:00] VITALS: BP 108/63
--- NOTE | 2019-08-02 20:31 | NUR ---
NURSE NOTES: Pt is in bed, awake and verbal. Pt gets agitated at times. Pt is very impulsive, lashes out at staff. Sitter is at bedside to monitor patient for safety. Pt is reoriented, therapeutic communication provided. Fall precaution in place. Bed alarm On. Bed locked low in position,side rails up and call light within reach. Pt will be monitored.
--- NOTE | 2019-08-03 02:53 | NUR ---
NURSE NOTES: Pt is in bed, asleep. No acute distress noted. Sitter by bedside.
[2019-08-03 04:00] VITALS: BP 124/60
[2019-08-03] MEDS: NovoLOG Insulin Flexpen SUBQ SCH ×4 (06:30→20:49)
[2019-08-03] MEDS: LORazepam 1mg tab ORAL SCH ×3 (06:48→17:16)
--- NOTE | 2019-08-03 06:49 | NUR ---
NURSE NOTES: Pt refused blood draw for labs. Pt took morning Meds with encouragement.
--- NOTE | 2019-08-03 07:25 | NUR ---
HAND-OFF: Report given to RALPH Kim.
--- NOTE | 2019-08-03 07:30 | NUR ---
NURSE NOTES: Received pt from RN DONNIE. Pt is alert and orient x4. Pt is in RA, no SOB or acute respiratory distress noted. pt has intact iv access LH 24G SL. Pt has sitter PRODUCTION PLANNER NOLSI. All needs attended, bed is locked and is in the lowest position. call light within easy reach. will continue to monitor.
[2019-08-03 08:00] VITALS: BP 113/66
[2019-08-03] MEDS: Heparin 5000 units/ml inj SUBQ SCH ×2 (09:00→20:48)
[2019-08-03] MEDS: metFORMIN 500mg tab ORAL SCH ×2 (09:03→17:16)
[2019-08-03] MEDS: OLANZapine 10mg tab ORAL SCH ×3 (09:03→17:15)
--- NOTE | 2019-08-03 09:03 | General Progress Note ---
Assessment/Plan Problem List: (1) Asthma ICD Codes: J45.909 - Unspecified asthma, uncomplicated SNOMED: 581869968 (2) UTI (urinary tract infection) ICD Codes: N39.0 - Urinary tract infection, site not specified SNOMED: 25817670 (3) LYNNE (acute kidney injury) ICD Codes: N17.9 - Acute kidney failure, unspecified SNOMED: 06337792 (4) Schizophrenia ICD Codes: F20.9 - Schizophrenia, unspecified SNOMED: 03675300 Status: unchanged Assessment/Plan: abx psyc tx cbc bmp am dc to psyc Subjective Constitutional: Reports: weakness Allergies: Coded Allergies: No Known Allergies (Unverified , 03/08/18) All Systems: reviewed and negative except above Subjective confused in bed Objective Last 24 Hour Vital Signs Date Time Temp Pulse Resp B/P (MAP) Pulse Ox O2 Delivery O2 Flow Rate FiO2 08/03/19 04:00 98.3 75 18 124/60 (81) 99 08/02/19 21:00 Room Air 08/02/19 20:00 98.0 78 20 108/63 (78) 98 08/02/19 20:00 79 18 97 Room Air 21 08/02/19 16:26 98.0 79 18 122/76 (91) 08/02/19 14:19 74 18 96 Room Air 21 08/02/19 11:59 97.8 79 18 115/79 (91) 98 Intake and Output 08/02/19 08/03/19 19:00 07:00 Intake Total 1200 ml 300 ml Balance 1200 ml 300 ml Intake Oral 300 ml Other 1200 ml # Voids 3 Height (Feet): 5 Height (Inches): 8.00 Weight (Pounds): 193 General Appearance: lethargic, confused EENT: normal ENT inspection Neck: normal alignment Cardiovascular: normal peripheral pulses, normal rate, regular rhythm Respiratory/Chest: chest wall non-tender, lungs clear, normal breath sounds Abdomen: normal bowel sounds, non tender, soft Extremities: normal inspection Edema: no edema noted Arm (L), no edema noted Arm (R), no edema noted Leg (L), no edema noted Leg (R), no edema noted Pedal (L), no edema noted Pedal (R), no edema noted Generalized Neurologic: motor weakness Skin: normal pigmentation, warm/dry Bateman,Kenneth Chi-Saima DO Aug 03, 2019 09:03
--- NOTE | 2019-08-03 10:43 | NUR ---
Social Service Note KANDY spoke with Sharon at [facility] [phone] since previous referral is over 48 hours SW to fax referral again. Referral faxed to [phone]. Will follow up.
--- NOTE | 2019-08-03 11:34 | Pulmonology Progress Note ---
Assessment/Plan Problems: (1) Acute psychosis (2) Schizophrenia (3) Hypersexuality Assessment/Plan no new complian symptomatic treatment psych evaluation appreciated dc planning pt is medically cleared to be transferred to a psychiatry facility Subjective ROS Limited/Unobtainable: No Constitutional: Reports: no symptoms HEENT: Repors: no symptoms Respiratory: Reports: no symptoms Allergies: Coded Allergies: No Known Allergies (Unverified , 03/08/18) Objective Last 24 Hour Vital Signs Date Time Temp Pulse Resp B/P (MAP) Pulse Ox O2 Delivery O2 Flow Rate FiO2 08/03/19 09:00 Room Air 08/03/19 08:15 78 18 98 Room Air 21 08/03/19 08:00 97.7 75 18 113/66 (82) 98 08/03/19 04:00 98.3 75 18 124/60 (81) 99 08/02/19 21:00 Room Air 08/02/19 20:00 98.0 78 20 108/63 (78) 98 08/02/19 20:00 79 18 97 Room Air 21 08/02/19 16:26 98.0 79 18 122/76 (91) 08/02/19 14:19 74 18 96 Room Air 21 08/02/19 11:59 97.8 79 18 115/79 (91) 98 Intake and Output 08/02/19 08/03/19 18:59 06:59 Intake Total 1200 ml 300 ml Balance 1200 ml 300 ml Intake Oral 300 ml Other 1200 ml # Voids 3 General Appearance: WD/WN HEENT: normocephalic, atraumatic Respiratory/Chest: chest wall non-tender, lungs clear Breasts: no masses Cardiovascular: normal peripheral pulses, regular rhythm Abdomen: normal bowel sounds, no organomegaly Genitourinary: normal external genitalia Skin: no rash Neurologic/Psychiatric: cold storage supervisor II-XII grossly normal Lymphatic: no neck adenopathy Current Medications Medications (Trade) Dose Ordered Sig/Melissa Route PRN Reason Start Time Stop Time Status Last Admin Dose Admin Acetaminophen (Tylenol) 650 mg Q4H PRN ORAL fever 07/26/19 15:15 08/25/19 15:14 Albuterol Sulfate (Proventil MDI) 2 puff Q6H PRN INH Shortness of Breath 07/27/19 06:58 08/26/19 06:57 Dextrose (Dextrose 50%) 25 ml Q30M PRN IV Hypoglycemia 07/26/19 15:15 08/25/19 15:14 Dextrose (Dextrose 50%) 50 ml Q30M PRN IV Hypoglycemia 07/26/19 15:15 08/25/19 15:14 Haloperidol Lactate (Haldol) 5 mg Q6H PRN IM Agitation 07/26/19 15:15 08/25/19 15:14 Heparin Sodium (Porcine) (Heparin 5000 units/ml) 5,000 units EVERY 12 HOURS SUBQ 07/26/19 21:00 08/25/19 20:59 Insulin Aspart (NovoLOG) BEFORE MEALS AND HS SUBQ 07/26/19 16:30 08/25/19 16:29 Lamotrigine (LaMICtal) 100 mg DAILY ORAL 07/27/19 09:00 08/26/19 08:59 08/03/19 09:03 [place] Carbonate (Gap Carbonate) 300 mg Q8HR ORAL 07/28/19 22:00 08/27/19 21:59 08/03/19 06:48 Lorazepam (Ativan) 1 mg Q6HR ORAL 08/02/19 21:55 08/09/19 21:54 08/03/19 06:48 Metformin HCl (Glucophage) 500 mg TWICE A DAY ORAL 07/26/19 18:00 08/25/19 17:59 08/03/19 09:03 Olanzapine (ZyPREXA) 10 mg TID ORAL 07/28/19 18:00 08/27/19 17:59 08/03/19 09:03 Ondansetron HCl (Zofran) 4 mg Q6H PRN IVP Nausea & Vomiting 07/26/19 15:15 08/25/19 15:14 Polyethylene Glycol (Miralax) 17 gm HSPRN PRN ORAL Constipation 07/26/19 15:15 08/25/19 15:14 Quetiapine Fumarate (SEROquel) 100 mg TID ORAL 08/03/19 09:00 09/02/19 08:59 08/03/19 09:03 Monik Blood MD Aug 03, 2019 11:34
--- NOTE | 2019-08-03 14:41 | NUR ---
Social Service Note Patient accepted at [facility]. Nurse to call report to [phone]. Nurse will provide room assignment and transfer time once report is provided. Ambulance transfer to be provided by [facility] [phone]. Dr. Bateman and Dr. Bond are the accepting physicians. Message left for Isela Villalobos [phone].
--- NOTE | 2019-08-03 15:04 | NUR ---
NURSE NOTES: RN called [phone] and spoke with NATALY and she stated no bed available for women and as soon as they have they will call back me. waiting to call back. will continue to monitor.
[2019-08-03 16:00] VITALS: BP 113/73
--- NOTE | 2019-08-03 16:30 | Progress Note ---
DATE: 08/03/2019 SUBJECTIVE: This is a 33-year-old female with encephalopathy. She has got some confusion, some disorganized thought processes, and decline in cognition below the baseline, mood lability and that is why her attending physician has requested daily psychiatric consultation. She is very hyperverbal. Mood is labile, irritable, agitated, and unpredictable. MENTAL STATUS EXAMINATION: This is a 33-year-old female. Appearance is disheveled. Attitude, irritable and agitated. Affect, guarded and restricted. Intellect poor. Mood, depressed and anxious. Motor activity, psychomotor agitation. Attention span is poor. Orientation x2. Speech is pressured. Thought process, disorganized and illogical. Insight and judgment is poor. DIAGNOSIS: Schizoaffective, bipolar type. PLAN: Zyprexa 10 mg three times daily, Lamictal 100 mg daily, Ativan 1 every 6 hours p.r.n. anxiety and agitation, and lithium 300 mg twice a day. A 20 minutes of cognitive behavioral therapy provided to help her identify automated negative thoughts and help to convert her those negative thoughts to more positive thoughts to reduce depression, anxiety, and suicidality. Transfer to psych unit when medically cleared. . Chart reviewed. Discussed with staff. Seen and assessed in her room. Mary Bond M.D. DR: NOAH JOB#: [id number] CC:
--- NOTE | 2019-08-03 19:41 | NUR ---
HAND-OFF: Report given to LEONORA. Endorsed to F/U for discharging pt.
[2019-08-03 20:00] VITALS: BP 115/64
--- NOTE | 2019-08-03 20:30 | NUR ---
NURSE NOTES: Patient has sitter Kyei, patient asleep in bed but will occasionally get up to ask for food and go to bathroom. Patient refusing to put gown on. IV access intact. Bed low and locked.
--- NOTE | 2019-08-03 20:37 | NUR ---
CASE MANAGEMENT: REVIEW SI: ENCEPHALOPATHY . DEHYDRATION T 98.4 HR 77 RR 20 BP 113/73 SAT 98% ROOM AIR IS: LITHIUM PO Q8HR LAMOTRIGINE PO QD HEPARIN SUBQ Q12HR METFORMIN PO BID NOVOLOG SUBQ AC+HS HALDOL IM Q6HR PRN MED/SURG STATUS DCP: PATIENT IS FROM [facility]
[2019-08-03 21:11] VITALS: BP 115/64
[2019-08-04] VITALS: BP 122/71
[2019-08-04] MEDS: LORazepam 1mg tab ORAL SCH ×4 (00:32→17:43)
[2019-08-04 03:43] VITALS: BP 119/65
[2019-08-04] MEDS: NovoLOG Insulin Flexpen SUBQ SCH ×4 (06:30→21:00)
--- NOTE | 2019-08-04 07:30 | NUR ---
NURSE NOTES: Received pt from RALPH LEA. Pt is alert and orient x4. Pt is in RA, no SOB or acute respiratory distress noted. pt has intact iv access LH 24G SL. Pt has sitter. Pt is eating breakfast independently. All needs attended, bed is locked and is in the lowest position. call light within easy reach. will continue to monitor.
--- NOTE | 2019-08-04 07:54 | NUR ---
HAND-OFF: Report given to RALPH Kim.
[2019-08-04] MEDS: Heparin 5000 units/ml inj SUBQ SCH ×2 (09:00→21:00)
[2019-08-04] MEDS: metFORMIN 500mg tab ORAL SCH ×2 (09:26→17:43)
[2019-08-04] MEDS: OLANZapine 10mg tab ORAL SCH ×3 (09:26→17:43)
--- NOTE | 2019-08-04 09:45 | NUR ---
Social Service Note KANDY spoke with Sharon at [facility] [phone]. Per Sharon they are still awaiting signature from conservheron Weiss for detain and treat. Patient is accepted however once they receive signed documentation they will release room assignment. KANDY left a message for Isela [phone]. Will continue to follow up.
[2019-08-04 12:00] VITALS: BP 109/63
--- NOTE | 2019-08-04 12:16 | Pulmonology Progress Note ---
Assessment/Plan Problems: (1) Acute psychosis (2) Schizophrenia (3) Hypersexuality Assessment/Plan no new complian symptomatic treatment psych evaluation appreciated dc planning pt is medically cleared to be transferred to a psychiatry facility she will go today probably Subjective ROS Limited/Unobtainable: No Constitutional: Reports: no symptoms HEENT: Repors: no symptoms Allergies: Coded Allergies: No Known Allergies (Unverified , 03/08/18) Objective Last 24 Hour Vital Signs Date Time Temp Pulse Resp B/P (MAP) Pulse Ox O2 Delivery O2 Flow Rate FiO2 08/04/19 09:00 Room Air 08/04/19 07:06 80 16 99 Room Air 21 08/04/19 03:43 97.4 73 18 119/65 (83) 97 08/04/19 00:00 98.0 66 18 122/71 (88) 96 08/03/19 22:49 Room Air 08/03/19 21:11 97.7 78 18 115/64 (81) 97 08/03/19 21:06 71 18 98 Room Air 21 08/03/19 20:00 97.7 78 18 115/64 (81) 97 08/03/19 16:00 98.4 77 20 113/73 (86) 98 Intake and Output 08/03/19 08/04/19 19:00 07:00 # Voids 3 General Appearance: WD/WN HEENT: normocephalic, atraumatic Respiratory/Chest: chest wall non-tender, lungs clear Breasts: no masses Cardiovascular: normal peripheral pulses Abdomen: normal bowel sounds, no organomegaly Genitourinary: normal external genitalia Extremities: no clubbing Skin: no rash, no lesions Current Medications Medications (Trade) Dose Ordered Sig/Melissa Route PRN Reason Start Time Stop Time Status Last Admin Dose Admin Acetaminophen (Tylenol) 650 mg Q4H PRN ORAL fever 07/26/19 15:15 08/25/19 15:14 Albuterol Sulfate (Proventil MDI) 2 puff Q6H PRN INH Shortness of Breath 07/27/19 06:58 08/26/19 06:57 Dextrose (Dextrose 50%) 25 ml Q30M PRN IV Hypoglycemia 07/26/19 15:15 08/25/19 15:14 Dextrose (Dextrose 50%) 50 ml Q30M PRN IV Hypoglycemia 07/26/19 15:15 08/25/19 15:14 Haloperidol Lactate (Haldol) 5 mg Q6H PRN IM Agitation 07/26/19 15:15 08/25/19 15:14 Heparin Sodium (Porcine) (Heparin 5000 units/ml) 5,000 units EVERY 12 HOURS SUBQ 07/26/19 21:00 08/25/19 20:59 Insulin Aspart (NovoLOG) BEFORE MEALS AND HS SUBQ 07/26/19 16:30 08/25/19 16:29 Lamotrigine (LaMICtal) 100 mg DAILY ORAL 07/27/19 09:00 08/26/19 08:59 08/04/19 09:26 [place] Carbonate ([place] Carbonate) 300 mg Q8HR ORAL 07/28/19 22:00 08/27/19 21:59 08/04/19 05:53 Lorazepam (Ativan) 1 mg Q6HR ORAL 08/02/19 21:55 08/09/19 21:54 08/04/19 05:53 Metformin HCl (Glucophage) 500 mg TWICE A DAY ORAL 07/26/19 18:00 08/25/19 17:59 08/04/19 09:26 Olanzapine (ZyPREXA) 10 mg TID ORAL 07/28/19 18:00 08/27/19 17:59 08/04/19 09:26 Ondansetron HCl (Zofran) 4 mg Q6H PRN IVP Nausea & Vomiting 07/26/19 15:15 08/25/19 15:14 Polyethylene Glycol (Miralax) 17 gm HSPRN PRN ORAL Constipation 07/26/19 15:15 08/25/19 15:14 Quetiapine Fumarate (SEROquel) 100 mg TID ORAL 08/03/19 09:00 09/02/19 08:59 08/04/19 09:26 Monik Blood MD Aug 04, 2019 12:16
--- NOTE | 2019-08-04 13:17 | General Progress Note ---
Assessment/Plan Problem List: (1) Asthma ICD Codes: J45.909 - Unspecified asthma, uncomplicated SNOMED: 975505079 (2) UTI (urinary tract infection) ICD Codes: N39.0 - Urinary tract infection, site not specified SNOMED: 12146269 (3) LYNNE (acute kidney injury) ICD Codes: N17.9 - Acute kidney failure, unspecified SNOMED: 75096618 (4) Schizophrenia ICD Codes: F20.9 - Schizophrenia, unspecified SNOMED: 88801164 Status: unchanged Assessment/Plan: abx psyc tx cbc bmp am dc to psyc Subjective Constitutional: Reports: weakness Allergies: Coded Allergies: No Known Allergies (Unverified , 03/08/18) All Systems: reviewed and negative except above Subjective confused in bed Objective Last 24 Hour Vital Signs Date Time Temp Pulse Resp B/P (MAP) Pulse Ox O2 Delivery O2 Flow Rate FiO2 08/04/19 09:00 Room Air 08/04/19 07:06 80 16 99 Room Air 21 08/04/19 03:43 97.4 73 18 119/65 (83) 97 08/04/19 00:00 98.0 66 18 122/71 (88) 96 08/03/19 22:49 Room Air 08/03/19 21:11 97.7 78 18 115/64 (81) 97 08/03/19 21:06 71 18 98 Room Air 21 08/03/19 20:00 97.7 78 18 115/64 (81) 97 08/03/19 16:00 98.4 77 20 113/73 (86) 98 Intake and Output 08/03/19 08/04/19 19:00 07:00 # Voids 3 Height (Feet): 5 Height (Inches): 8.00 Weight (Pounds): 193 General Appearance: confused EENT: normal ENT inspection Neck: normal alignment Cardiovascular: normal peripheral pulses, normal rate, regular rhythm Respiratory/Chest: chest wall non-tender, lungs clear, normal breath sounds Abdomen: normal bowel sounds, non tender, soft Extremities: normal inspection Edema: no edema noted Arm (L), no edema noted Arm (R), no edema noted Leg (L), no edema noted Leg (R), no edema noted Pedal (L), no edema noted Pedal (R), no edema noted Generalized Neurologic: motor weakness Skin: normal pigmentation, warm/dry Kenneth Bateman DO Aug 04, 2019 13:17
[2019-08-04 16:00] VITALS: BP 105/62
--- NOTE | 2019-08-04 16:30 | NUR ---
Social Service Note Isela responded that she will be in contact with [facility] today and provide documentation. KANDY confirmed with Sharon at [facility] [phone] once form to detain and treat is received facility will contact nursing station for report and bed assignment. Nursing to contact [phone] for transportation at that time. Primary nurse notified.
--- NOTE | 2019-08-04 17:19 | NUR ---
NURSE NOTES: accepting psych md is dr sparks nurse to nurse report [phone] disposition: [facility] [id number] [facility] [id number]
--- NOTE | 2019-08-04 18:29 | NUR ---
NURSE NOTES: Pt has discharge order. all D/C assessments and instructions done and pt verbally confirmed to understand all. pt is stable. V/S stable. Report given to RALPH lennon belongings are with pt and checked with RN and belongings paper signed by pt. 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 will continue to monitor.
--- NOTE | 2019-08-04 19:15 | NUR ---
NURSE NOTES: Received a report from Kary Kim. Pt is sleeping. Pt is in stable condition. Sitter at the bedside. On room air. No c/o pain/discomfort. Bed in lowest position. Bed alarm is on. Call light within reach. 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
--- NOTE | 2019-08-04 19:30 | Progress Note ---
DATE: 08/04/2019 SUBJECTIVE: The patient is a 33-year-old female patient with encephalopathy. She continued to be confused and disorganized. She continues to have some mood lability, worsened by stress of her medical illness. That is why, her attending physician has requested daily psychiatric consultation for this patient. She is mood labile, confused, and disorganized. She has got no logical plan for own self-care and she has got feelings of helplessness, hopelessness, low energy, poor appetite, loss of interest in activity, extremely agitated, irritable, mood labile, racing thoughts, pressured speech, verbally abusive, and now seem to be in a manic phase with poor sleep. Continued to be agitated and extremely mood labile. MENTAL STATUS EXAMINATION: The patient is a 33-year-old female. Appearance is disheveled. Attitude, irritable and agitated. Affect is labile. Intellect poor. Mood, depressed and anxious. Motor activity, psychomotor agitation. Attention span is poor. Orientation x2. Speech is pressured. Thought process, disorganized and illogical. Insight and judgment is poor. DIAGNOSIS: Schizoaffective, bipolar type. PLAN: Plan for this patient, Zyprexa 10 mg three times a day, lithium 300 mg twice a day, Lamictal 100 mg daily, Ativan 1 mg every 6 hours p.r.n. anxiety and agitation, and Seroquel 100 mg three times a day. A 20 minutes of cognitive behavioral therapy attempted to help her identify automatic negative thoughts, help her convert negative thoughts to more positive thoughts to reduce depression, anxiety, neuropsychiatric illness and having more adaptive behavioral pattern. Also, currently transfer to [facility] psychiatric unit to help stabilize her mood once she is medically cleared. Chart was reviewed and discussed with staff. A 20 minutes of cognitive behavioral therapy provided. Mary Bond M.D. DR: NOAH JOB#: [id number] CC:
--- NOTE | 2019-08-04 19:42 | NUR ---
HAND-OFF: Report given to RALPH MAK.
[2019-08-04 20:00] VITALS: BP 117/70
--- NOTE | 2019-08-04 20:25 | NUR ---
CASE MANAGEMENT: REVIEW SI: ENCEPHALOPATHY . DEHYDRATION T 97.4 HR 73 RR 18 BP 119/65 SAT 97% ROOM AIR IS: LITHIUM PO Q8HR LAMOTRIGINE PO QD HEPARIN SUBQ Q12HR METFORMIN PO BID NOVOLOG SUBQ AC+HS HALDOL IM Q6HR PRN MED/SURG STATUS DCP: PATIENT IS FROM [facility]
--- NOTE | 2019-08-04 22:06 | NUR ---
NURSE NOTES: Ambulance came and picked up the pt. Pt is in stable condition. No Iv access. On room air. No c/o pain. All belongings are with the pt. Discharge instruction provided.
--- NOTE | 2019-08-05 08:22 | Discharge Summary ---
Discharge Summary Discharge Summary _ DATE OF ADMISSION: 07/26/2019 DATE OF DISCHARGE: 08/04/2019 DISCHARGED BY: Dr. Bateman REASON FOR ADMISSION: 33 years old female with past medical history of hypertension, COPD/asthma, diabetes mellitus, schizophrenia, previous suicide attempts, chronic kidney disease, status post left hip surgery, GERD, was brought by paramedics and police department.. Patient was placed on 5150 hold. Patient reported running outside naked. Upon arrival patient was agitated and required sedation after initial psychiatric restraint. Patient appears to be a danger to self and staff at that time. Patient reported not being on any psychiatric medication over the last 5 days. Upon evaluation vital signs are stable. Laboratory work- up revealed no leukocytosis stable hemoglobin hematocrit stable electrolytes and renal parameters. Urinalysis revealed no evidence of UTI. Urine toxicology screen was negative. Serum salicylates Tylenol and alcohol were all negative. Patient was hydrated and initially required chemical and physical restraints. Patient was not able to be medically stabilized and cleared and subsequently required inpatient medical care and psychiatric evaluation. Patient subsequently was admitted to cyclic medical surgical floor. CONSULTANTS: hospitalist Dr. Blood psychiatrist Dr. Bond [facility] COURSE: Patient admitted to medical surgical floor. Psychiatrist closely followed. Psychiatric medication regimen was optimized. Cognitive behavioral therapy provided to help her identified automatic negative thoughts, help to convert negative thoughts to more positive thoughts to reduce depression and anxiety and have more adaptive behavioral pattern. Blood pressure was closely monitored, remained stable without any antihypertensive medications. Blood sugar was managed with metformin and sliding scale of insulin as needed. Supplemental oxygen was on board to keep pulse oximetry above 92%. Pulse oximetry was stable on room air . No evidence of respiratory distress or asthma exacerbation. DVT prophylaxis provided. Supportive care provided. Per psychiatrist, patient required transfer to psychiatric facility for further stabilization and management. Patient was medically cleared for transfer. Placement was challenging, but placement was eventually found and secured. Patient was subsequently transferred to [facility] for further management. FINAL DIAGNOSES: Schizoaffective bipolar Acute psychosis COPD/asthma DISCHARGE MEDICATIONS: See Medication Reconciliation list. DISCHARGE INSTRUCTIONS: Patient was transferred to inpatient psychiatric hospital [place] for further management. I have been assigned to dictate discharge summary for this account. I was not involved in the patient's management. Cyndi Persaud NP Aug 05, 2019 08:22
== END 2019-08-04 22:00 | DRG 683 ==
LOC: EDBD 08:30 → EMR 09:00 → EDBEDREQ 11:06 → 4E 12:23
DX: N17.9 Acute kidney failure, unspecified (principal); F23 Brief psychotic disorder; N39.0 Urinary tract infection, site not specified; E11.22 Type 2 diabetes mellitus with diabetic chronic kidney disease; K21.9 Gastro-esophageal reflux disease without esophagitis; F25.0 Schizoaffective disorder, bipolar type; J44.9 Chronic obstructive pulmonary disease, unspecified; I12.9 Hypertensive chronic kidney disease with stage 1 through stage 4 chronic kidney disease, or unspecified chronic kidney disease; N18.9 Chronic kidney disease, unspecified; Z86.718 Personal history of other venous thrombosis and embolism; E86.0 Dehydration
CPT/HCPCS: 36415; 80048; 80053; 80178; 80307; 80329; 81003; 81025; 82962; 85025; 87081; 93005; 94664; 96372; 96374; 99291; J1815; J2250